=== PATIENT | female | born 1935 | race Caucasian/White ===

== ENCOUNTER → 2017-10-22 | Day surgery (SDC) | payer MEDICARE ==
[2017-10-17 10:47] VITALS: BMI 35.1
[~2017-10-22] MED LIST: LIDOCAINE 1% INJ 10MG/ML (20 ML MDV) ONE; PROPOFOL 10 MG/ML 20 ML VIAL IV ONE
--- NOTE | 2017-10-22 13:44 | PCN ---
PROCEDURE NOTE DATE OF SERVICE: 10/22/2017 REQUESTING PHYSICIANS: Dr. Wil Meyers and Dr. Hillman BRIEF HISTORY: Patient is an 82-year-old pleasant white female, scheduled for an elective upper endoscopy as well as colonoscopy as a part of evaluation of iron deficiency anemia and Hemoccult-positive stool. She also has chronic diarrhea with bowel movements anywhere from 5 to 6 a day, which are loose to watery in consistency, but denies any blood or mucus in the stool. In view of the symptoms, she is scheduled for an upper endoscopy as well as colonoscopy to evaluate further. PROCEDURE PERFORMED: 1. EGD with biopsy. 2. Colonoscopy with biopsy. PREOPERATIVE DIAGNOSIS: Iron deficiency anemia, chronic diarrhea and blood in the stool. IV sedation per anesthesia. PROCEDURE: After informed consent was obtained from the patient, she was brought into the endoscopy unit. IV conscious sedation was administered by Anesthesia under continuous monitoring. Initially, upper endoscopy was done, the Olympus GIF 190 video endoscope was inserted in the mouth. Esophagus intubated without any difficulty and was gradually advanced to the stomach and duodenum and carefully examined. Bulb and the second part of the duodenum appeared normal. The scope was then withdrawn into the stomach, adequately insufflated with air and upon careful examination, the mucosa in the antrum had scattered erosions. Biopsies for H. pylori were done. Body of the stomach appeared normal and on retroflexion cardia and the fundus appeared normal. The scope was then withdrawn in the esophagus. The GE junction was located at 40 cm from the incisors. It appeared regular with no erythema, erosions, or ulcerations. of the esophagus appeared normal. There was a small hiatal hernia noted and the patient tolerated the procedure well. She continued to remain sedated. At this time a colonoscopy was done. Digital examination was normal. The Olympus CF 190 video colonoscopy was then insertion into the rectum gradually advanced into cecum. Careful examination was performed when the scope was gradually being withdrawn. The ileocecal valve and the appendiceal orifice were visualized and appeared normal. The prep was excellent. The mucosa of cecum, ascending colon, transverse colon, descending colon, sigmoid colon and rectum appeared normal. Random biopsies were done from the ascending and descending colon to rule out microscopic/collagenous colitis. In the rectum, retroflexion was performed and mild internal hemorrhoids were seen and the patient tolerated the procedure well. IMPRESSION: 1. Upper endoscopy revealed mild gastritis and small hiatal hernia, but no evidence of esophagitis or peptic ulcer disease. 2. Colonoscopy was essentially within normal limits with no evidence of colitis or colorectal neoplasia. RECOMMENDATION: Findings of this examination were discussed with the patient as well as her family. She was advised to follow up with the biopsy results. In the meantime, she will start on iron supplements and she will be seen in the office in 3 to 4 weeks. MMODL / IJN: [id number] /
[2017-10-23 03:37] LABS: Glucose,Whole Blood 112 mg/dL (75-99)
== END ==
LOC: ORWHC2ENDO 06:45
PROVIDERS: ATTEND Internal Medicine Gastroenterology
DX: K52.832 Lymphocytic colitis (principal); K31.9 Disease of stomach and duodenum, unspecified; K44.9 Diaphragmatic hernia without obstruction or gangrene; I10 Essential (primary) hypertension; N28.9 Disorder of kidney and ureter, unspecified; Z79.899 Other long term (current) drug therapy
CPT/HCPCS: 88305; 45380; 43239; J2001; J2704

== ENCOUNTER → 2019-03-06 | Outpatient (CLI) | payer MEDICARE | END | disposition home or self-care (01) | LOC: RADMRIMAIN 13:25 | PROVIDERS: ATTEND Urology | DX: Z53.9 Procedure and treatment not carried out, unspecified reason (principal) ==

== ENCOUNTER → 2019-04-14 | Outpatient (CLI) | payer MEDICARE ==
--- NOTE | 2019-04-14 15:50 | US ---
EXAMINATION TYPE: US kidneys/renal and bladder DATE OF EXAM: 04/14/2019 COMPARISON: NONE CLINICAL HISTORY: R79.89 ABN FINDINGS OF BLOOD CHEMISTRY. abn labs, no symptoms EXAM MEASUREMENTS: Right Kidney: 8.4 x 2.9 x 5.4cm Left Kidney: 7.7 x 3.2 x 4.0cm Right Kidney: small in size, no hydronephrosis or masses seen Left Kidney: small in size, no hydronephrosis or masses seen Bladder: not distended There is no evidence for hydronephrosis at this point in time. No nephrolithiasis is seen. No maris s are identified. Diminished size and cortical thinning of both kidneys is present. The urinary bladd er is suboptimally distended. Bilateral ureteral jets are not seen. IMPRESSION: Evidence of chronic medical renal disease. No hydronephrosis is seen bilaterally.
--- NOTE | 2019-04-15 12:01 | ECHOF ---
Referral Reason:R01.0 CARDIAC MURMUR MEASUREMENTS -------- HEIGHT: 154.9 cm WEIGHT: 86.2 kg BP: RVIDd: 2.6 cm (< 3.3) IVSd: 1.1 cm (0.6 - 1.1) LVIDd: 4.8 cm (3.9 - 5.3) LVPWd: 1.3 cm (0.6 - 1.1) IVSs: 1.8 cm LVIDs: 3.0 cm LVPWs: 1.9 cm LA Diam: 3.2 cm (2.7 - 3.8) LAESV Index (A-L): 19.70 ml/m Ao Diam: 3.4 cm (2.0 - 3.7) AV Cusp: 1.8 cm (1.5 - 2.6) MV EXCURSION: 22.126 mm (> 18.000) MV EF SLOPE: 197 mm/s (70 - 150) EPSS: 0.1 cm MV E Helio: 0.71 m/s MV DecT: 240 ms MV A Helio: 1.30 m/s MV E/A Ratio: 0.54 AV maxP.93 mmHg AV meanP.47 mmHg AR PHT: 1202 ms RAP: 5.00 mmHg RVSP: 35.26 mmHg FINDINGS -------- Sinus rhythm. This was a technically adequate study. The left ventricular size is normal. There is mild concentric left ventricular hypertrophy. Overa ll left ventricular systolic function is low-normal with, an EF between 50 - 55 %. The right ventricle is normal in size. Normal LA size by volume 22+/-6 ml/m2. The right atrium is normal in size. Aneurysmal Interatrial septum. There is mild aortic valve sclerosis. There is mild aortic regurgitation. There is mild aortic st enosis present. Peak/mean gradient across the Aortic Valve is 17.93mmHg / 9.47mmHg. Mild mitral annular calcification present. Mild tricuspid regurgitation present. There is mild pulmonary hypertension. The right ventricular systolic pressure, as measured by Doppler, is 35.26mmHg. Trace/mild (physiologic) pulmonic regurgitation. The aortic root size is normal. Normal inferior vena cava with normal inspiratory collapse consistent with estimated right atrial pre ssure of 5 mmHg. There is no pericardial effusion. CONCLUSIONS -------- 1. Sinus rhythm. 2. This was a technically adequate study. 3. The left ventricular size is normal. 4. There is mild concentric left ventricular hypertrophy. 5. Overall left ventricular systolic function is low-normal with, an EF between 50 - 55 %. 6. The right ventricle is normal in size. 7. Normal LA size by volume 22+/-6 ml/m2. 8. The right atrium is normal in size. 9. Aneurysmal Interatrial septum. 10. There is mild aortic valve sclerosis. 11. There is mild aortic regurgitation. 12. There is mild aortic stenosis present. 13. Peak/mean gradient across the Aortic Valve is 17.93mmHg / 9.47mmHg. 14. Mild mitral annular calcification present. 15. Mild tricuspid regurgitation present. 16. There is mild pulmonary hypertension. 17. The right ventricular systolic pressure, as measured by Doppler, is 35.26mmHg. 18. Trace/mild (physiologic) pulmonic regurgitation. 19. The aortic root size is normal. 20. Normal inferior vena cava with normal inspiratory collapse consistent with estimated right atrial pressure of 5 mmHg. 21. There is no pericardial effusion. STEP DOWN NURSE: Lauren Garcia RDCS
== END | disposition home or self-care (01) ==
LOC: RADUSWWP 13:54
PROVIDERS: ATTEND Family Medicine
DX: I08.3 Combined rheumatic disorders of mitral, aortic and tricuspid valves (principal); I27.20 Pulmonary hypertension, unspecified; I09.89 Other specified rheumatic heart diseases; N28.9 Disorder of kidney and ureter, unspecified
CPT/HCPCS: 76770; 93306

== ENCOUNTER 2019-05-05 09:28 | Inpatient (IN) | payer MEDICARE ==
[2019-05-05] MEDS ORDERED: IPRATROPIUM-ALBUTEROL 3 ML NEB INHALATION STA (10:00)
[2019-05-05] MEDS ORDERED: methylPREDNISolone SOD SUCCI 125 MG/2 ML VIAL IV STA (10:00)
--- NOTE | 2019-05-05 10:17 | ED ---
General Adult HPI - General Source: patient, RN notes reviewed Mode of arrival: ambulatory Limitations: no limitations <Jann Paul - Last Filed: 05/05/19 11:31> <Sivakumar Fowler - Last Filed: 05/05/19 11:36> - General Chief complaint: Recheck/Abnormal Lab/Rx Stated complaint: Low potassium Time Seen by Provider: 05/05/19 09:46 - History of Present Illness Initial comments: This is a 84-year-old female presents emergency Department with chief complaint of low potassium. Patient states that she's had issues with this in the past she does take Lasix and supplemental potassium. She had labs drawn yesterday and notified come emergency department today. She did admit that she was supposed be taking 40 mEq of potassium at states she's only been taking 28. Patient states that she just feels tired she does complain that she has some shortness of breath with a cough and states that she does have COPD as she was a smoker for 40+ years. Patient denies any palpitations, chest pain, headache or dizziness. She states that she has no significant swelling of her lower extremities. (Jann Paul) - Related Data Home Medications Medication Instructions Recorded Confirmed Enalapril [Vasotec] 20 mg PO DAILY 10/04/13 10/17/17 amLODIPine [Norvasc] 5 mg PO DAILY 10/04/13 10/17/17 Atorvastatin [Lipitor] 20 mg PO DAILY 01/19/16 10/17/17 Furosemide [Lasix] 40 mg PO DAILY 02/13/16 10/17/17 Potassium Chloride [Klor-Con] 20 meq PO DAILY 02/13/16 10/17/17 Allergies Allergy/AdvReac Type Severity Reaction Status Date / Time No Known Allergies Allergy Verified 10/17/17 10:35 Review of Systems ROS Other: All systems not noted in ROS Statement are negative. <Jann Paul - Last Filed: 05/05/19 11:31> ROS Other: All systems not noted in ROS Statement are negative. <Sivakumar Fowler - Last Filed: 05/05/19 11:36> ROS Statement: Those systems with pertinent positive or pertinent negative responses have been documented in the HPI. Past Medical History Past Medical History: Heart Failure, COPD, Deep Vein Thrombosis (DVT), Hyperlipidemia, Hypertension, Osteoarthritis (OA) Additional Past Medical History / Comment(s): hx COLON POLYPS, HEMORRHOIDS, ANEMIA, DVT (NOVEMBER 2015), HOSPITALIZED 01/19/16-01/25/16 AND RECEIVED BLOOD TRANSFUSIONS AND INSERTION OF FILTER FOR BLOOD CLOTS., STATES EDEMA IN MARILYN LEGS AND FEET. hx ulcer,occult blood in stool, was on oral rx for diabetes-none currently, decreased kidney function History of Any Multi-Drug Resistant Organisms: None Reported Past Surgical History: Adenoidectomy, Appendectomy, Cholecystectomy, Heart Catheterization, Hysterectomy, Joint Replacement, Tonsillectomy Additional Past Surgical History / Comment(s): LT KNEE REPLACEMENT, rt shoulder surg , vena cava filter, SALPINGOPLASTY, marilyn CATARACTS,COLONOSCOPY/EGD, marilyn BLEPHEROPLSTY Past Anesthesia/Blood Transfusion Reactions: No Reported Reaction Additional Past Anesthesia/Blood Transfusion Reaction / Comment(s): CLAUSTROPHOBIA Past Psychological History: Anxiety Smoking Status: Former smoker - Past Family History Father Family Medical History: Cancer Additional Family Medical History / Comment(s): . Sister(s) Family Medical History: Cancer <Jann Paul M - Last Filed: 05/05/19 11:31> General Exam Limitations: no limitations General appearance: alert, in no apparent distress Head exam: Present: atraumatic, normocephalic, normal inspection ENT exam: Present: normal exam, mucous membranes moist Neck exam: Present: normal inspection, full ROM. Absent: tenderness, meningismus, lymphadenopathy Respiratory exam: Present: normal lung sounds bilaterally. Absent: respiratory distress, wheezes, rales, rhonchi, stridor Cardiovascular Exam: Present: regular rate, normal rhythm, normal heart sounds. Absent: systolic murmur, diastolic murmur, rubs, gallop, clicks GI/Abdominal exam: Present: soft, normal bowel sounds. Absent: distended, tenderness, guarding, rebound, rigid Extremities exam: Absent: pedal edema Neurological exam: Present: alert, oriented X3, CN II-XII intact Skin exam: Present: warm, dry, intact, normal color. Absent: rash <Jann Paul M - Last Filed: 05/05/19 11:31> Course Vital Signs 05/05/19 05/05/19 05/05/19 09:36 10:22 10:44 Temperature 98.2 F Pulse Rate 85 84 80 Respiratory 20 Rate Blood Pressure 93/57 O2 Sat by Pulse 90 L Oximetry 05/05/19 11:29 Temperature Pulse Rate 84 Respiratory 18 Rate Blood Pressure 130/94 O2 Sat by Pulse 96 Oximetry EKG Findings - EKG Comments: EKG Findings:: EKG shows sinus rhythm with first-degree block, left bundle rate of 74 OH 242 QRS 162 QT/QTC 472/423 <Jann Paul - Last Filed: 05/05/19 11:31> Medical Decision Making - Lab Data Result diagrams: 05/05/19 10:05 05/05/19 10:05 <Jann Paul - Last Filed: 05/05/19 11:31> - Lab Data Result diagrams: 05/05/19 10:05 05/05/19 10:05 <Sivakumar Fowler - Last Filed: 05/05/19 11:36> - Medical Decision Making Patient presented for her hypokalemia. Patient's found to have potassium 2.7with oral and IV. Patient on elevated troponin has been complaining of shortness breath, generalized not feeling well. Patient did complain of some mild chest tightness related to her shortness breath at this time. Patient will be admitted for further evaluation and repeat troponin, potassium replacement. (Jann Paul) Patient presenting with abnormal outpatient lab. Complaining of generalized weakness, and an outpatient lab showing low potassium. Patient has a potassium which is rechecked today which is 2.7, she has chronic kidney disease however her kidney function is slightly worse from baseline with a creatinine 2.1. She had an EKG with left bundle and first-degree AV block which is similar compared to previous EKGs and 2016. No active chest pain. She has a mildly elevated troponin which is suspect is related to decreased clearance from chronic kidney disease. She will be heparinized awaiting serial troponins and cardiac evaluation. Her potassium is replaced both IV and orally. She will be admitted for further evaluation and treatment. Magnesium pending (Sivakumar Fowler) - Lab Data Lab Results 05/05/19 05/05/19 05/05/19 Range/Units 10:05 10:05 10:05 WBC 10.7 H (3.8-10.6) k/uL RBC 4.24 (3.80-5.40) m/uL Hgb 13.2 (11.4-16.0) gm/dL Hct 37.7 (34.0-46.0) % MCV 88.9 (80.0-100.0) fL MCH 31.1 (25.0-35.0) pg MCHC 34.9 (31.0-37.0) g/dL RDW 13.0 (11.5-15.5) % Plt Count 315 (150-450) k/uL Neutrophils % 79 % Lymphocytes % 11 % Monocytes % 6 % Eosinophils % 1 % Basophils % 1 % Neutrophils # 8.5 H (1.3-7.7) k/uL Lymphocytes # 1.2 (1.0-4.8) k/uL Monocytes # 0.7 (0-1.0) k/uL Eosinophils # 0.1 (0-0.7) k/uL Basophils # 0.1 (0-0.2) k/uL Sodium 131 L (137-145) mmol/L Potassium 2.7 L* (3.5-5.1) mmol/L Chloride 84 L (98-107) mmol/L Carbon Dioxide 32 H (22-30) mmol/L Anion Gap 15 mmol/L BUN 51 H (7-17) mg/dL Creatinine 2.14 H (0.52-1.04) mg/dL Est GFR (CKD-EPI)AfAm 24 (>60 ml/min/1.73 sqM) Est GFR (CKD-EPI)NonAf 21 (>60 ml/min/1.73 sqM) Glucose 171 H (74-99) mg/dL Calcium 9.4 (8.4-10.2) mg/dL Total Bilirubin 1.0 (0.2-1.3) mg/dL AST 31 (14-36) U/L ALT 21 (4-34) U/L Alkaline Phosphatase 87 (38-126) U/L Troponin I 0.074 H* (0.000-0.034) ng/mL Total Protein 6.8 (6.3-8.2) g/dL Albumin 4.2 (3.5-5.0) g/dL Disposition <Jann Paul M - Last Filed: 05/05/19 11:31> <Sivakumar Fowler - Last Filed: 05/05/19 11:36> Clinical Impression: Hypokalemia, Elevated troponin, Renal failure, COPD (chronic obstructive p ulmonary disease) Disposition: ADMITTED IP TO THIS HOSP Condition: Fair Referrals: Wil Meyers MD [Primary Care Provider] - 1-2 days
[2019-05-05 10:29] LABS: Basophils # (A) 0.1 k/uL (0-0.2); Basophils % (A) 1 %; Eosinophils # (A) 0.1 k/uL (0-0.7); Eosinophils % (A) 1 %; HCT 37.7 % (34.0-46.0); HGB 13.2 gm/dL (11.4-16.0); Lymphocytes # (A) 1.2 k/uL (1.0-4.8); Lymphocytes % (A) 11 %; MCH 31.1 pg (25.0-35.0); MCHC 34.9 g/dL (31.0-37.0); MCV 88.9 fL (80.0-100.0); Mean Platelet Volume 7.1; Monocytes # (A) 0.7 k/uL (0-1.0); Monocytes % (A) 6 %; Neutrophils # (A) 8.5 k/uL (1.3-7.7); Neutrophils % (A) 79 %; Platelet Count 315 k/uL (150-450); RBC 4.24 m/uL (3.80-5.40); WBC 10.7 k/uL (3.8-10.6)
[2019-05-05 10:33] LABS: Albumin 4.2 g/dL (3.5-5.0); Calcium 9.4 mg/dL (8.4-10.2); Total Protein 6.8 g/dL (6.3-8.2)
[2019-05-05 11:15] LABS: Potassium 2.7 mmol/L (3.5-5.1)
[2019-05-05] MEDS ORDERED: ASPIRIN 81 MG PO STA (11:30)
[2019-05-05] MEDS ORDERED: POTASSIUM CHLORIDE ER 20 MEQ TAB.ER PO STA (11:30)
[2019-05-05] MEDS ORDERED: HEPARIN SODIUM,PORCINE 5,000 UNIT/ML 1 ML VIAL IV PRN (11:33)
[2019-05-05] MEDS ORDERED: HEPARIN SODIUM,PORCINE 5,000 UNIT/ML 1 ML VIAL IV ONE (11:33)
[2019-05-05] MEDS ORDERED: NITROGLYCERIN SL TABS 0.4 MG TAB SUBLINGUAL PRN (11:33)
--- NOTE | 2019-05-05 11:35 | XR ---
EXAMINATION TYPE: XR chest 2V DATE OF EXAM: 05/05/2019 COMPARISON: 01/23/2026 HISTORY: 83 year-old female shortness of breath, dyspnea TECHNIQUE: PA and lateral views FINDINGS: Right total shoulder arthroplasty. Heart normal size. Mild elongation thoracic aorta with atheroscler otic calcifications throughout the aorta. Mild diffuse interstitial prominence. No keith consolidatio n or pleural effusion. IMPRESSION: Diffuse interstitial prominence, possible bronchitis or asthma. Correlate to exclude underlying COPD. No focal infiltrate.
[2019-05-05] MEDS ORDERED: HEPARIN SOD,PORK IN 0.45% NACL 25,000 UNIT in 0.45% NACL 1 250ML.BAG IV SCH (11:45)
[2019-05-05] MEDS: POTASSIUM CHLORIDE 20 MEQ in WATER FOR INJECTION 1 100ML.BAG IVPB SCH ×2 (12:08→14:21)
[2019-05-05] MEDS: SODIUM CHLORIDE 0.9% 1,000 ML IV SCH ×3 (14:21→20:15)
[2019-05-05] MEDS: IPRATROPIUM-ALBUTEROL 3 ML NEB INHALATION SCH ×3 (16:01→20:30)
[2019-05-05 16:55] LABS: Glucose,Whole Blood 270 mg/dL (75-99)
[2019-05-05] MEDS: INSULIN ASPART (NovoLOG) 100 UNIT/ML VIAL SQ SCH ×2 (17:16→20:14)
--- NOTE | 2019-05-05 18:46 | CONS ---
CONSULTATION This is an 83-year-old elderly lady with a diagnosis of hypertension and hyperlipidemia. She sees Dr. Bunch in the outpatient setting. She came into the hospital mainly with what seems to be complaint of feeling weak, exhausted, tired, lack of energy and was found to have a low potassium of 2.7. She takes Lasix and Zaroxolyn. She also complains of having some shortness of breath. No energy, fatigue, but no clear-cut chest discomfort. She does not have any syncope or near syncope. Clinically, she appears to be dehydrated. PAST MEDICAL HISTORY: 1. Hypertension. 2. Hyperlipidemia. 3. History of remote DVT, details unavailable. She is status post cholecystectomy and appendectomy. She has left total knee arthroplasty. MEDICATIONS: At home include: 1. Amlodipine 10 mg daily. 2. Enalapril 20 mg daily. 3. Atorvastatin 20 mg daily. 4. Lasix 40 mg daily. 5. Zaroxolyn 2.5 mg daily. This patient also has type 2 diabetes mellitus, obesity, and is a past smoker who quit smoking about 4-5 years ago. She takes additionally metformin as well. PHYSICAL EXAMINATION: Blood pressure is 130/70, initially when she came in, pressure was low at 93/70, pulse rate is about 85 per minute. EKG revealed a sinus mechanism with left bundle branch block pattern. On examination, there is no JVD. I do not hear a carotid bruit. Heart exam reveals S1, S2 heard normally. Lungs reveal bilateral scattered expiratory rhonchi. Abdomen is soft, nontender. Lower extremities reveal trace edema. Diminished pulses. Central nervous system is grossly within normal limits. IMPRESSION: 1. Exacerbation of chronic obstructive pulmonary disease. 2. Hypokalemia secondary to excessive diuretic usage. 3. Hypertension. 4. Hyperlipidemia. 5. History of type 2 diabetes mellitus. 6. Probably patient is dehydrated. 7. Atypical chest pain with elevated troponin. RECOMMENDATIONS: Patient's initial troponin is 0.074. Potassium is 2.7. I am recommending that we supplement potassium aggressively. She should not use Zaroxolyn. I will hydrate her with 100 mL of normal saline for the next 12 hours or so. We will supplement potassium. Amlodipine will be resumed at 5 mg and I will also start her on metoprolol tartrate 25 mg daily. Check serial troponins. Obtain a CBC and BMP in the morning. Even though patient's troponin is elevated, I do not believe we are dealing with any acute myocardial injury. Clinical presentation does not suggest that. I will obtain an echocardiogram as well. I discussed my thoughts in detail with the patient. Thank you very much for the consult. TOVA / ZION: [id number] /
[2019-05-05 20:08] LABS: Glucose,Whole Blood 315 mg/dL (75-99)
[2019-05-05] MEDS: METOPROLOL TARTRATE 25 MG TAB PO SCH (20:14)
--- NOTE | 2019-05-05 22:40 | P.HPIM ---
History of Present Illness H&P Date: 05/05/19 Chief Complaint: Hypokalemia History of presenting complaint: This is a very pleasant [address] jurado out of [place]. Chronic stable medical conditions include hemorrhoids, COPD, chronic kidney disease, hypertension, hyperlipidemia, Reji arthritis, anxiety,. Patient's had chronic lower extremity swelling for close to a year. She gone on to see Dr. jurado's nurse practitioner. Apparently amlodipine was discontinued and the swelling have gone down felt to be the side effect of the same. For 2 days patient is having increasing short of breath some dry cough. No fever no chills. Family doctor's office called her procedure potassium was low she needs to come to the ER. Potassium was found to be 2.7. Today check a troponin the ER that was 0.074. Patient denies any chest pain no palpitations or chest pressure. Review of systems: GEN.: Tired EYES: None HEENT: None NECK: None RESPIRATORY: Some shortness of breath] CARDIOVASCULAR: Some edema GASTROINTESTINAL: None GENITOURINARY: None MUSCULOSKELETAL: Joint pains LYMPHATICS: None HEMATOLOGICAL: None PSYCHIATRY: None NEUROLOGICAL: None Past medical history to include: Hemorrhoids, COPD, chronic kidney disease, hypertension, hyperlipidemia, Reji arthritis, anxiety, DVT Social history: . Smokes a pack over a week over 60 years. Stopped 2016 Physical examination: VITAL SIGNS: 98.2, 85, 20, 83/57, 90% on room air GENERAL: BMI 35.5, laying in bed, not in distress. EYES: Pupils equal. Conjunctiva normal. HEENT: External appearance of nose and ears normal, oral cavity grossly normal. NECK: JVD not raised; masses not palpable. HEART: First and second heart sounds are normal; no edema. LUNGS: Respiratory rate normal; decreased breath sounds. ABDOMEN: Soft, nontender, liver spleen not palpable, no masses palpable. PSYCH: Alert and oriented x3; mood and affect normal. NEUROLOGICAL: Cranial nerves grossly intact; no facial asymmetry, power and sensation grossly intact. LYMPHATICS: No lymph nodes palpable in the axilla and neck MUSCULOSKELETAL: Evidence of OA INVESTIGATIONS, reviewed in the clinical context: White count 10.7 hemoglobin 13.2 platelets 315 potassium 2.7 bun 51 creatinine 2.14 Troponin I 0.074, 0.069 EKG tracing personally reviewed by me-left bundle-branch block Chest x-ray film-some hyperinflation Assessment: -Severe hypokalemia from diuretics -Acute COPD exacerbation, in an ex-smoker -Obesity BMI 35.5 -Troponin leak in the setting of chronic kidney disease. Patient has no symptoms of acute ischemic syndrome -Lower extremity swelling previously likely a side effect of our department -Chronic kidney disease stage III probably from nephrosclerosis -Essential hypertension -Hyperlipidemia -Primary osteoarthritis Plan: Patient's potassium with Lasix will be replaced. Agree to replaced the fluids overnight. Repeat renal function the morning. Patient did a 2-D echocardiogram. Put the patient on bronchodilators and inhaled steroids. Care was discussed with the patient question were answered. Patient does not need IV heparin that'll be discontinued. Past Medical History Past Medical History: Heart Failure, COPD, Diabetes Mellitus, Deep Vein Thrombosis (DVT), GI Bleed, Hyperlipidemia, Hypertension, Osteoarthritis (OA), Renal Disease Additional Past Medical History / Comment(s): NIDDM type II-diet controlled, past neuropathy bilateral feet, decreased renal function, cardiac murmur, hypokalemia, L leg DVT, hemorrhoids, benign colon polyps, hemorrhoids, anemia, lower GI bleed, gastric ulcer. History of Any Multi-Drug Resistant Organisms: None Reported Past Surgical History: Adenoidectomy, Appendectomy, Cholecystectomy, Heart Catheterization, Hysterectomy, Joint Replacement, Tonsillectomy Additional Past Surgical History / Comment(s): IVC filter, L leg skin tear with surgical repair, total hysterectomy, L knee arthroscopy, total L knee arthroplasty, R shoulder rotator cuff repair with pin, bilateral cataract removals/lens implants, bilateral blepharoplasties, EGD, colonoscopies/benign polypectomy. Past Anesthesia/Blood Transfusion Reactions: No Reported Reaction Additional Past Anesthesia/Blood Transfusion Reaction / Comment(s): CLAUSTROPHOBIA Smoking Status: Former smoker - Past Family History Father Family Medical History: Cancer Additional Family Medical History / Comment(s): Father had prostate cancer with mets. He at the age of 74 yrs. Sister(s) Family Medical History: Cancer Mother Family Medical History: COPD Additional Family Medical History / Comment(s): Mother at the age of 86yrs. Brother(s) Family Medical History: Musculoskeletal Disorder, Neurologic Disorder Additional Family Medical History / Comment(s): Brother of parkinson's disease. Medications and Allergies Home Medications Medication Instructions Recorded Confirmed Type Atorvastatin [Lipitor] 20 mg PO DAILY 01/19/16 05/05/19 History Furosemide [Lasix] 40 mg PO DAILY 02/13/16 05/05/19 History Potassium Chloride [Klor-Con] 40 meq PO DAILY 02/13/16 05/05/19 History Aclidinium [place] [Tudorza 1 puff INHALATION RT-BID 05/05/19 05/05/19 History Pressair] Metolazone [Zaroxolyn] 2.5 mg PO DAILY 05/05/19 05/05/19 History amLODIPine [Norvasc] 10 mg PO DAILY 05/05/19 05/05/19 History Allergies Allergy/AdvReac Type Severity Reaction Status Date / Time No Known Allergies Allergy Verified 05/05/19 11:52 Physical Exam Vitals: Vital Signs Temp Pulse Pulse Resp BP BP Pulse Ox 05/05/19 20:40 76 05/05/19 20:30 71 92 L 05/05/19 20:00 98 F 76 18 105/53 93 L 05/05/19 16:09 82 05/05/19 16:01 85 05/05/19 16:00 98.2 F 84 20 133/95 96 05/05/19 14:22 99.0 F 89 18 146/72 96 05/05/19 12:20 85 21 135/93 96 05/05/19 11:29 84 18 130/94 96 05/05/19 10:44 80 05/05/19 10:22 84 05/05/19 09:36 98.2 F 85 20 93/57 90 L Intake and Output 05/05/19 05/05/19 05/05/19 06:59 14:59 22:59 Intake Total 356 Balance 356 Intake: Oral 356 Other: # Voids 1 # Bowel Movements 1 Weight 85.275 kg Results CBC & Chem 7: 05/05/19 10:05 05/05/19 10:05 Labs: Abnormal Lab Results - Last 24 Hours (Table) 05/05/19 05/05/19 05/05/19 Range/Units 10:05 10:05 10:05 WBC 10.7 H (3.8-10.6) k/uL Neutrophils # 8.5 H (1.3-7.7) k/uL APTT (22.0-30.0) sec Sodium 131 L (137-145) mmol/L Potassium 2.7 L* (3.5-5.1) mmol/L Chloride 84 L (98-107) mmol/L Carbon Dioxide 32 H (22-30) mmol/L BUN 51 H (7-17) mg/dL Creatinine 2.14 H (0.52-1.04) mg/dL Glucose 171 H (74-99) mg/dL POC Glucose (mg/dL) (75-99) mg/dL Troponin I 0.074 H* (0.000-0.034) ng/mL 05/05/19 05/05/19 05/05/19 Range/Units 15:15 15:15 16:54 WBC (3.8-10.6) k/uL Neutrophils # (1.3-7.7) k/uL APTT 50.1 H (22.0-30.0) sec Sodium (137-145) mmol/L Potassium (3.5-5.1) mmol/L Chloride (98-107) mmol/L Carbon Dioxide (22-30) mmol/L BUN (7-17) mg/dL Creatinine (0.52-1.04) mg/dL Glucose (74-99) mg/dL POC Glucose (mg/dL) 270 H (75-99) mg/dL Troponin I 0.069 H* (0.000-0.034) ng/mL 05/05/19 Range/Units 20:07 WBC (3.8-10.6) k/uL Neutrophils # (1.3-7.7) k/uL APTT (22.0-30.0) sec Sodium (137-145) mmol/L Potassium (3.5-5.1) mmol/L Chloride (98-107) mmol/L Carbon Dioxide (22-30) mmol/L BUN (7-17) mg/dL Creatinine (0.52-1.04) mg/dL Glucose (74-99) mg/dL POC Glucose (mg/dL) 315 H (75-99) mg/dL Troponin I (0.000-0.034) ng/mL Thrombosis Risk Factor Assmnt - Choose All That Apply Any of the Below Risk Factors Present?: Yes Each Factor Represents 1 point: Abnormal pulmonary function (COPD), Obesity (BMI >25) Each Risk Factor Represents 3 Points: Age 75 years or older, History of DVT/PE Other congenital or acquired thrombophilia - If yes, enter type in comment: No Thrombosis Risk Factor Assessment Total Risk Factor Score: 8 Thrombosis Risk Factor Assessment Level: High Risk
[2019-05-06] MEDS: IPRATROPIUM-ALBUTEROL 3 ML NEB INHALATION SCH ×7 (00:15→23:56)
[2019-05-06] MEDS: BUDESONIDE 1 MG/2 ML NEBU INHALATION SCH ×3 (00:16→20:12)
[2019-05-06] MEDS: FORMOTEROL FUMARATE 20 MCG/2 ML NEBU INHALATION SCH ×3 (00:16→20:12)
[2019-05-06 06:16] LABS: Glucose,Whole Blood 229 mg/dL (75-99)
[2019-05-06] MEDS: INSULIN ASPART (NovoLOG) 100 UNIT/ML VIAL SQ SCH ×4 (06:31→20:47)
[2019-05-06 06:57] LABS: Basophils % (A) 0 %; Eosinophils % (A) 0 %; HCT 31.2 % (34.0-46.0); HGB 10.8 gm/dL (11.4-16.0); Lymphocytes # (A) 0.8 k/uL (1.0-4.8); Lymphocytes % (A) 8 %; MCH 31.6 pg (25.0-35.0); MCHC 34.5 g/dL (31.0-37.0); MCV 91.5 fL (80.0-100.0); Mean Platelet Volume 7.3; Monocytes # (A) 0.4 k/uL (0-1.0); Monocytes % (A) 4 %; Neutrophils # (A) 9.1 k/uL (1.3-7.7); Neutrophils % (A) 88 %; Platelet Count 326 k/uL (150-450); RBC 3.41 m/uL (3.80-5.40); RDW 13.1 % (11.5-15.5); WBC 10.4 k/uL (3.8-10.6)
[2019-05-06 07:20] LABS: Albumin 3.6 g/dL (3.5-5.0); Calcium 8.8 mg/dL (8.4-10.2); Total Bilirubin 0.5 mg/dL (0.2-1.3)
[2019-05-06] MEDS ORDERED: IPRATROPIUM 0.5 MG/2.5 ML NEBU INHALATION SCH (08:00)
[2019-05-06] MEDS ORDERED: ASPIRIN 325 MG TAB PO SCH (09:00)
[2019-05-06] MEDS ORDERED: amLODIPine 5 MG TAB PO SCH (09:00)
[2019-05-06] MEDS: POTASSIUM CHLORIDE ER 20 MEQ TAB.ER PO SCH ×6 (10:43→22:58)
[2019-05-06] MEDS: ASPIRIN 81 MG PO SCH (10:43)
[2019-05-06] MEDS: METOPROLOL TARTRATE 25 MG TAB PO SCH ×2 (10:43→20:15)
[2019-05-06] MEDS: ATORVASTATIN 20 MG TAB PO SCH (10:43)
[2019-05-06] MEDS ORDERED: FUROSEMIDE 10 MG/ML 4 ML VIAL IV STA (11:39)
--- NOTE | 2019-05-06 11:42 | ECHOF ---
Referral Reason:Assess LV function MEASUREMENTS -------- HEIGHT: 154.9 cm WEIGHT: 83.9 kg BP: IVSd: 1.1 cm (0.6 - 1.1) LVIDd: 3.8 cm (3.9 - 5.3) LVPWd: 1.0 cm (0.6 - 1.1) IVSs: 1.2 cm LVIDs: 1.9 cm LVPWs: 1.3 cm LAESV Index (A-L): 25.07 ml/m Ao Diam: 3.1 cm (2.0 - 3.7) AV Cusp: 1.2 cm (1.5 - 2.6) LA Diam: 3.3 cm (2.7 - 3.8) MV E Helio: 1.54 m/s MV DecT: 135 ms MV A Helio: 0.66 m/s MV E/A Ratio: 2.34 AV maxP.60 mmHg AV meanP.48 mmHg AR PHT: 437 ms RAP: 5.00 mmHg RVSP: 44.75 mmHg TAPSE: 25.68 mm FINDINGS -------- BBB This was a technically adequate study. The left ventricular size is normal. Left ventricular wall thickness is normal. Overall left vent ricular systolic function is normal with, an EF between 55 - 60 %. The right ventricle is normal in size. The left atrial size is normal. Normal LA size by volume 22+/-6 ml/m2. The right atrial size is normal. Aortic valve is trileaflet and is mildly thickened. There is mild aortic regurgitation. There is mild aortic stenosis present. Peak/mean gradient across the Aortic Valve is 22.60mmHg / 14.48mmHg. The mitral valve is normal. The mitral valve leaflets are mildly thickened. Mild mitral regurgita tion is present. The tricuspid valve appears structurally normal. Mild tricuspid regurgitation present. There is m ild pulmonary hypertension. The right ventricular systolic pressure, as measured by Doppler, is 44. 75mmHg. There is no pulmonic regurgitation present. The aortic root size is normal. Normal inferior vena cava with normal inspiratory collapse consistent with estimated right atrial pre ssure of 5 mmHg. There is no pericardial effusion. CONCLUSIONS -------- 1. BBB 2. This was a technically adequate study. 3. The left ventricular size is normal. 4. Left ventricular wall thickness is normal. 5. Overall left ventricular systolic function is normal with, an EF between 55 - 60 %. 6. The right ventricle is normal in size. 7. The left atrial size is normal. 8. Normal LA size by volume 22+/-6 ml/m2. 9. The right atrial size is normal. 10. Aortic valve is trileaflet and is mildly thickened. 11. There is mild aortic regurgitation. 12. There is mild aortic stenosis present. 13. Peak/mean gradient across the Aortic Valve is 22.60mmHg / 14.48mmHg. 14. The mitral valve is normal. 15. The mitral valve leaflets are mildly thickened. 16. Mild mitral regurgitation is present. 17. The tricuspid valve appears structurally normal. 18. Mild tricuspid regurgitation present. 19. There is mild pulmonary hypertension. 20. The right ventricular systolic pressure, as measured by Doppler, is 44.75mmHg. 21. There is no pulmonic regurgitation present. 22. The aortic root size is normal. 23. Normal inferior vena cava with normal inspiratory collapse consistent with estimated right atrial pressure of 5 mmHg. 24. There is no pericardial effusion. [place] [employer]: Gena Monsalve RDCS
[2019-05-06 11:52] LABS: Glucose,Whole Blood 211 mg/dL (75-99)
--- NOTE | 2019-05-06 12:23 | PN ---
PROGRESS NOTE Mrs Green came into the hospital, would seem clinical presentation of dehydration with Lasix and Zaroxolyn and hypokalemia. This morning, potassium level is only 3.0. Blood pressure control is better. Creatinine has improved to 1.83 from 2.15. Her breathing is still not so good. About a year ago she quit smoking. She used to smoke a pack a day. Vitals are stable. JVD is 1 cm, no carotid bruit. S1-S2 heard normally, short systolic murmur noted. Rhythm is regular. Lungs reveal diminished air entry. Scattered rhonchi. Abdomen is distended. Lower extremity exam reveal trace edema. Diminished pulses. I am recommending a small dose of losartan, discontinue amlodipine. Continue metoprolol. Check a room air oxygen saturation and echocardiogram and she can be discharged after she improves clinically, but for now, we will still optimize her clinical status. Same medical regimen as indicated above. MMODL / IJN: [id number] /
[2019-05-06 13:39] VITALS: BMI 35.1
--- NOTE | 2019-05-06 14:13 | P.PN ---
Progress Note - Text Progress Note Date: 05/06/19 Chief Complaint: Hypokalemia History of presenting complaint: This is a very pleasant [address] jurado out of [place]. Chronic stable medical conditions include hemorrhoids, COPD, chronic kidney disease, hypertension, hyperlipidemia, Reji arthritis, anxiety,. Patient's had chronic lower extremity swelling for close to a year. She gone on to see Dr. jurado's nurse practitioner. Apparently amlodipine was discontinued and the swelling have gone down felt to be the side effect of the same. For 2 days patient is having increasing short of breath some dry cough. No fever no chills. Family doctor's office called her procedure potassium was low she needs to come to the ER. Potassium was found to be 2.7. Today check a troponin the ER that was 0.074. Patient denies any chest pain no palpitations or chest pressure. Admitted with severe hypokalemia and COPD exacerbation. Today-still some shortness of breath and chest congestion. Potassium is being replaced. Did tolerate some diet. Review of systems: Was done for constitutional, cardiovascular, GI, pulmonary. relevant finding as above Active Medications Albuterol/Ipratropium (Duoneb 0.5 Mg-3 Mg/3 Ml Soln) 3 ml INHALATION RT-Q4H [facility] Last Admin: 05/06/19 11:29 Dose: 3 ml Documented by: Aspirin (Aspirin) 81 mg PO DAILY [facility] Last Admin: 05/06/19 10:43 Dose: 81 mg Documented by: Atorvastatin Calcium (Lipitor) 20 mg PO DAILY [facility] Last Admin: 05/06/19 10:43 Dose: 20 mg Documented by: Budesonide (Pulmicort) 1 mg INHALATION RT-BID [facility] Last Admin: 05/06/19 08:13 Dose: 1 mg Documented by: Formoterol Fumarate (Perforomist) 20 mcg INHALATION RT-BID [facility] Last Admin: 05/06/19 08:13 Dose: 20 mcg Documented by: Heparin Sodium (Porcine) (Heparin) 5,000 unit SQ Q12HR [facility] Sodium Chloride (Saline 0.9%) 1,000 mls @ 20 mls/hr IV .Q24H [facility] Last Admin: 05/05/19 20:15 Dose: 75 mls/hr Documented by: Insulin Aspart (Novolog) 0 unit SQ ACHS [facility]; Protocol Last Admin: 05/06/19 12:11 Dose: 3 unit Documented by: Losartan Potassium (Cozaar) 50 mg PO HS [facility] Metoprolol Tartrate (Lopressor) 25 mg PO BID [facility] Last Admin: 05/06/19 10:43 Dose: 25 mg Documented by: Nitroglycerin (Nitrostat) 0.4 mg SUBLINGUAL Q5M PRN PRN Reason: Chest Pain Physical examination: VITAL SIGNS: 97.8, 75, 127/57, 94% on 2 L GENERAL: Propped up in bed, slightly tired. EYES: Pupils equal. Conjunctiva normal. HEENT: External appearance of nose and ears normal, oral cavity grossly normal. NECK: JVD not raised; masses not palpable. HEART: First and second heart sounds are normal; no edema. LUNGS: Respiratory rate increased decreased breath sounds. ABDOMEN: Soft, nontender, liver spleen not palpable, no masses palpable. PSYCH: Alert and oriented x3; mood and affect normal. MUSCULOSKELETAL: Evidence of OA INVESTIGATIONS, reviewed in the clinical context: White count 10.4 hemoglobin 10.8 potassium 3 bun 52 creatinine 1.83 Previous testing White count 10.7 hemoglobin 13.2 platelets 315 potassium 2.7 bun 51 creatinine 2.14 Troponin I 0.074, 0.069 EKG tracing personally reviewed by me-left bundle-branch block Chest x-ray film-some hyperinflation Assessment: -Severe hypokalemia from diuretics, improving -Acute COPD exacerbation, in an ex-smoker, slow to respond -Obesity BMI 35.5 -Troponin leak in the setting of chronic kidney disease. Patient has no symptoms of acute ischemic syndrome -Lower extremity swelling previously likely a side effect of our department -Chronic kidney disease stage III probably from nephrosclerosis -Essential hypertension -Hyperlipidemia -Primary osteoarthritis Plan: . Percussion to be replaced. Add Solu-Medrol. Per cardiology and amlodipine discontinued. Losartan added. Care was discussed with the patient.
[2019-05-06] MEDS: SODIUM CHLORIDE 0.9% 1,000 ML IV SCH (15:19)
--- NOTE | 2019-05-06 15:24 | CDI ---
Documentation Clarification Form Date: 05/06/2019 03:13:46 PM From: Allison Wilcox RN, CCDS Admit Date: 05/06/2019 01:06:00 PM Patient Name: Troy Green Visit Number: [id number] ATTENTION: The Clinical Documentation Specialists (CDI) and [facility] Coding Staff appreciate your assistance in clarifying documentation. Please respond to the clarification below the line at the bottom and electronically sign. The CDI & [facility] Coding staff will review the response and follow-up if needed. Please note: Queries are made part of the Legal Health Record. If you have any questions, please contact the author of this message via ITS. Dr. Nadine Springer CHF is documented in the PMH and the patient presents with hypokalemia from Lasix and Zaroxolyn. History/Risk Factors: Copd, ckd, HTN, anxiety Clinical Indicators: 05/06/19 Cardiology Progress Note: "Mrs. Green came into the hospital, would seem clinical presentation of dehydration with Lasix and Zaroxolyn and hypokalemia. VS/Pulse OX: Temp 98.2, hr 85, RR 20, B/P 93/57, spo2 90% ra Echocardiogram Results: EF 55-60% 05/05 Chest X Ray: "Diffuse interstitial prominence, possible bronchitis or asthma. Correlate to exclude underlying COPD. No focal infiltrate." Treatment: Previously on Lasix and Zaroxolyn at home Lopressor 25 mg PO BID In your professional opinion, can you please clarify the acuity and type of CHF if known? Chronic Diastolic Heart Failure Chronic Combined heart failure Unable to Determine Other, please specify (Last Revision: July 2017) Chronic Diastolic Heart Failure MTDD
--- NOTE | 2019-05-06 15:29 | CDI ---
Documentation Clarification Form Date: 05/06/2019 03:25:46 PM From: Allison Wilcox RN, CCDS Admit Date: 05/06/2019 01:06:00 PM Patient Name: Troy Green Visit Number: [id number] ATTENTION: The Clinical Documentation Specialists (CDI) and [facility] Coding Staff appreciate your assistance in clarifying documentation. Please respond to the clarification below the line at the bottom and electronically sign. The CDI & [facility] Coding staff will review the response and follow-up if needed. Please note: Queries are made part of the Legal Health Record. If you have any questions, please contact the author of this message via ITS. Dr. Jaiden Mercado A diagnosis of anemia lacks specificity to accurately reflect your patients severity of condition and clarification is needed. History/Risk Factors: Anemia, DM2, chronic renal failure, lower GIB, gastric ulcer Clinical indicators: H&P: PMH "Anemia" Hemoglobin: 13.2/10.8 Hematocrit: 37.7/31.2 Treatment: monitoring labs In order to capture the severity of condition, please clarify the type of anemia and etiology if known: Acute blood loss anemia Acute on chronic blood loss anemia Chronic blood loss anemia Iron deficiency anemia Anemia due to chronic disease Nutritional anemia Anemia of chronic kidney disease Unable to determine Other, please specify (Last Revision: January 2017) Anemia of chronic kidney disease MTDD
--- NOTE | 2019-05-06 16:19 | P.PN ---
Subjective Progress Note Date: 05/06/19 This is an 83-year-old female with history of hypertension and hyperlipidemia who presented to the hospital with symptoms of weakness and exhaustion, she was found to have a low potassium of 2.7. She takes Lasix and Zaroxolyn which were placed on hold. Patient was seen in consultation yesterday by Dr. EULOGIO Springer, consult was requested because of abnormalities in troponin. Oxygen saturation today was 90, potassium today is 3.0, BUN 52 and creatinine 1.8. We will give her 3 more doses of potassium 20 mEq to total a total of 120, we will add losartan 50 mg at at bedtime to her medication regime, discontinue her Norvasc, add some subcu heparin and discontinue the IV Lasix. Objective - Vital Signs Vital signs: Vital Signs Temp 97.8 F 05/06/19 08:00 Pulse 77 05/06/19 12:00 Resp 16 05/06/19 11:40 BP 132/58 05/06/19 12:00 Pulse Ox 91 L 05/06/19 12:00 Intake & Output 05/05/19 05/06/19 05/06/19 18:59 06:59 18:59 Intake Total 236 120 826 Balance 236 120 826 Weight 85.275 kg 84.3 kg 84.3 kg Intake: Intake, IV Titration 350 Amount Sodium Chloride 0.9% 1, 350 000 ml @ 100 mls/hr IV . Q10H [facility] Rx#:[id number] Oral 236 120 476 Other: # Voids 1 2 # Bowel Movements 1 - Exam PHYSICAL EXAMINATION: GENERAL: 55-year-old female in no acute distress at the time of my examination HEENT: Head is atraumatic, normocephalic. Pupils equal, round. Sclera anicteric. Conjunctiva are clear. Mucous membranes of the mouth are moist. Neck is supple. There is no elevated jugular venous pressure.] bruit is heard. HEART EXAMINATION: [Heart S1, S2 normal. No murmur or gallop heard.] CHEST EXAMINATION:[ Lungs are clear to auscultation and precussion. No chest wall tenderness is noted on palpation or with deep breathing.] ABDOMEN: [ Soft, nontender. Bowel sounds are heard. No organomegaly noted]. EXTREMITIES:[ 2+ peripheral pulses with no evidence of peripheral edema and no calf tenderness noted]. NEUROLOGIC [patient is awake, alert and oriented ?-3.] . - Labs CBC & Chem 7: 05/06/19 06:30 05/06/19 06:29 Labs: Abnormal Lab Results - Last 24 Hours (Table) 05/05/19 05/05/19 05/05/19 Range/Units 15:15 15:15 16:54 RBC (3.80-5.40) m/uL Hgb (11.4-16.0) gm/dL Hct (34.0-46.0) % Neutrophils # (1.3-7.7) k/uL Lymphocytes # (1.0-4.8) k/uL APTT 50.1 H (22.0-30.0) sec Sodium (137-145) mmol/L Potassium (3.5-5.1) mmol/L Chloride (98-107) mmol/L BUN (7-17) mg/dL Creatinine (0.52-1.04) mg/dL Glucose (74-99) mg/dL POC Glucose (mg/dL) 270 H (75-99) mg/dL Troponin I 0.069 H* (0.000-0.034) ng/mL Total Protein (6.3-8.2) g/dL HDL Cholesterol (40-60) mg/dL 05/05/19 05/05/19 05/06/19 Range/Units 20:07 22:05 06:14 RBC (3.80-5.40) m/uL Hgb (11.4-16.0) gm/dL Hct (34.0-46.0) % Neutrophils # (1.3-7.7) k/uL Lymphocytes # (1.0-4.8) k/uL APTT (22.0-30.0) sec Sodium (137-145) mmol/L Potassium (3.5-5.1) mmol/L Chloride (98-107) mmol/L BUN (7-17) mg/dL Creatinine (0.52-1.04) mg/dL Glucose (74-99) mg/dL POC Glucose (mg/dL) 315 H 229 H (75-99) mg/dL Troponin I 0.070 H* (0.000-0.034) ng/mL Total Protein (6.3-8.2) g/dL HDL Cholesterol (40-60) mg/dL 05/06/19 05/06/19 05/06/19 Range/Units 06:29 06:30 06:30 RBC 3.41 L (3.80-5.40) m/uL Hgb 10.8 L (11.4-16.0) gm/dL Hct 31.2 L (34.0-46.0) % Neutrophils # 9.1 H (1.3-7.7) k/uL Lymphocytes # 0.8 L (1.0-4.8) k/uL APTT 37.1 H (22.0-30.0) sec Sodium 132 L (137-145) mmol/L Potassium 3.0 L (3.5-5.1) mmol/L Chloride 94 L (98-107) mmol/L BUN 52 H (7-17) mg/dL Creatinine 1.83 H (0.52-1.04) mg/dL Glucose 207 H (74-99) mg/dL POC Glucose (mg/dL) (75-99) mg/dL Troponin I (0.000-0.034) ng/mL Total Protein 6.0 L (6.3-8.2) g/dL HDL Cholesterol 71 H (40-60) mg/dL 05/06/19 Range/Units 11:51 RBC (3.80-5.40) m/uL Hgb (11.4-16.0) gm/dL Hct (34.0-46.0) % Neutrophils # (1.3-7.7) k/uL Lymphocytes # (1.0-4.8) k/uL APTT (22.0-30.0) sec Sodium (137-145) mmol/L Potassium (3.5-5.1) mmol/L Chloride (98-107) mmol/L BUN (7-17) mg/dL Creatinine (0.52-1.04) mg/dL Glucose (74-99) mg/dL POC Glucose (mg/dL) 211 H (75-99) mg/dL Troponin I (0.000-0.034) ng/mL Total Protein (6.3-8.2) g/dL HDL Cholesterol (40-60) mg/dL Assessment and Plan Plan: Assessment and plan #1 COPD exacerbation #2 hypokalemia #3 hypertension #4 hyperlipidemia #5 diabetes #6 troponin, not suggestive of acute coronary syndrome, likely secondary to COPD exacerbation and hypoxia. PLan We'll replace the potassium, add losartan to the medication regime, discontinue Norvasc, add subcu heparin and discontinue the IV Lasix. DNP note has been reviewed, I agree with a documented findings and plan of care. Patient was seen and examined.
[2019-05-06 16:27] LABS: Glucose,Whole Blood 177 mg/dL (75-99)
[2019-05-06] MEDS: methylPREDNISolone SOD SUCCI 40 MG/ML 1 ML VIAL IV SCH (19:16)
[2019-05-06] MEDS: LOSARTAN 50 MG TAB PO SCH (20:15)
[2019-05-06] MEDS: HEPARIN SODIUM,PORCINE 5,000 UNIT/ML 1 ML VIAL SQ SCH (20:15)
[2019-05-06 20:36] LABS: Glucose,Whole Blood 247 mg/dL (75-99)
[2019-05-06] MEDS ORDERED: POTASSIUM CHLORIDE ER 20 MEQ TAB.ER PO SCH (22:31)
[2019-05-07] MEDS: methylPREDNISolone SOD SUCCI 40 MG/ML 1 ML VIAL IV SCH ×3 (00:40→17:36)
[2019-05-07] MEDS: IPRATROPIUM-ALBUTEROL 3 ML NEB INHALATION SCH ×5 (04:16→19:17)
[2019-05-07 06:00] LABS: Glucose,Whole Blood 225 mg/dL (75-99)
[2019-05-07] MEDS: INSULIN ASPART (NovoLOG) 100 UNIT/ML VIAL SQ SCH ×4 (06:19→20:46)
[2019-05-07] MEDS: BUDESONIDE 1 MG/2 ML NEBU INHALATION SCH ×2 (07:39→19:16)
[2019-05-07] MEDS: FORMOTEROL FUMARATE 20 MCG/2 ML NEBU INHALATION SCH ×2 (07:39→19:17)
[2019-05-07 08:12] LABS: Calcium 8.9 mg/dL (8.4-10.2); Potassium 4.3 mmol/L (3.5-5.1)
[2019-05-07] MEDS: ATORVASTATIN 20 MG TAB PO SCH (09:14)
[2019-05-07] MEDS: HEPARIN SODIUM,PORCINE 5,000 UNIT/ML 1 ML VIAL SQ SCH ×2 (09:14→20:46)
[2019-05-07] MEDS: ASPIRIN 81 MG PO SCH (09:15)
[2019-05-07] MEDS: METOPROLOL TARTRATE 25 MG TAB PO SCH ×2 (09:15→20:46)
--- NOTE | 2019-05-07 11:48 | PN ---
PROGRESS NOTE Mrs. Green is breathing easier today. She came in with exacerbation of COPD. Also had some edema of lower extremities. She also has underlying hypertension. Her breathing is easier, somewhat improved. Remains in sinus rhythm. Her blood pressure control on the current regimen is optimal. Vitals are stable. There is JVD of 1 cm. S1-S2 heard normally, short systolic murmur noted. Lungs reveal improved air entry. Abdomen is soft. Lower extremities reveal diminished pulses. Central nervous system is normal. MMODL / IJN: [id number] /
[2019-05-07 12:05] LABS: Glucose,Whole Blood 236 mg/dL (75-99)
[2019-05-07] MEDS: SODIUM CHLORIDE 0.9% 1,000 ML IV SCH (12:26)
--- NOTE | 2019-05-07 14:52 | P.CNPUL ---
History of Present Illness Consult date: 05/07/19 Reason for consult: dyspnea, COPD History of present illness: 83-year-old female patient who was admitted to the hospital with symptoms of generalized weakness and exhaustion and the patient was found to have potassium level of 2.7 as the patient was taken diuretics in a combination of Lasix and Zaroxolyn was placed on hold. The patient reported that she was feeling tired and she also did complain of some shortness of breath and cough and apparently she reported history of COPD with [id number] smoking history. Pulmonary consultation was requested accordingly. Chest x-ray is free of any acute pulmonary infiltrates. On admission, the patient had an acute on top of chronic kidney injury. Creatinine was up to 2.1 and the patient was given hydration and the creatinine is down to 1.6. She did have also troponin leak and his the EKG showed sinus rhythm with a first-degree AV block and the left bundle branch block pattern. The echo showed an EF around 55-60%. There was mild aortic stenosis. Mild pulmonary hypertension with a PA pressure of 44 mmHg. She is currently utilizing DuoNeb nebulized treatments around the clock and she is also on IV Solu-Medrol. Diuretics are on hold for now. She has been maintained on Tudorza one puff twice a day on outpatient basis. However, the cost of the medication was high and the patient was unable to obtain the medication. The patient is not utilizing any formal maintenance inhalers or oxygen at home. Current pulse ox on room air is around 91-92%. Review of Systems Constitutional: Denies chills, Denies fever Eyes: denies as per HPI, denies blurred vision, denies bulging eye, denies decreased vision, denies diplopia, denies discharge, denies dry eye, denies irritation, denies itching, denies pain, denies photophobia, denies loss of peripheral vision, denies loss of vision, denies tunnel vision/blind spots Ears: deny: decreased hearing, ear discharge, earache, tinnitus Ears, nose, mouth and throat: Reports as per HPI Breasts: absent: as per HPI, change in shape, gynecomastia, masses, nipple discharge, pain, skin changes, swelling Cardiovascular: Reports decreased exercise tolerance, Reports dyspnea on e xertion Respiratory: Reports dyspnea Genitourinary: Reports as per HPI Menstruation: Reports as per HPI Musculoskeletal: Reports as per HPI Musculoskeletal: absent: ankle pain, ankle stiffness, ankle swelling, as per HPI, elbow pain, elbow stiffness, elbow swelling, foot pain, foot stiffness, foot swelling, hand pain, hand stiffness, hand swelling, hip pain, hip stiffness, hip swelling, knee pain, knee stiffness, knee swelling, shoulder pain, shoulder stiffness, shoulder swelling, wrist pain, wrist stiffness, wrist swelling Neurological: Reports as per HPI Psychiatric: Reports as per HPI Endocrine: Reports as per HPI Hematologic/Lymphatic: Reports as per HPI Allergic/Immunologic: Reports as per HPI Past Medical History Past Medical History: Heart Failure, COPD, Diabetes Mellitus, Deep Vein Thrombosis (DVT), GI Bleed, Hyperlipidemia, Hypertension, Osteoarthritis (OA), Renal Disease Additional Past Medical History / Comment(s): NIDDM type II-diet controlled, past neuropathy bilateral feet, decreased renal function, cardiac murmur, hypokalemia, L leg DVT, hemorrhoids, benign colon polyps, hemorrhoids, anemia, lower GI bleed, gastric ulcer. History of Any Multi-Drug Resistant Organisms: None Reported Past Surgical History: Adenoidectomy, Appendectomy, Cholecystectomy, Heart Catheterization, Hysterectomy, Joint Replacement, Tonsillectomy Additional Past Surgical History / Comment(s): IVC filter, L leg skin tear with surgical repair, total hysterectomy, L knee arthroscopy, total L knee arthr oplasty, R shoulder rotator cuff repair with pin, bilateral cataract removals/lens implants, bilateral blepharoplasties, EGD, colonoscopies/benign polypectomy. Past Anesthesia/Blood Transfusion Reactions: No Reported Reaction Additional Past Anesthesia/Blood Transfusion Reaction / Comment(s): CLAUSTROPHOBIA Smoking Status: Former smoker - Past Family History Father Family Medical History: Cancer Additional Family Medical History / Comment(s): Father had prostate cancer with mets. He at the age of 74 yrs. Sister(s) Family Medical History: Cancer Mother Family Medical History: COPD Additional Family Medical History / Comment(s): Mother at the age of 86yrs. Brother(s) Family Medical History: Musculoskeletal Disorder, Neurologic Disorder Additional Family Medical History / Comment(s): Brother of parkinson's disease. Medications and Allergies Home Medications Medication Instructions Recorded Confirmed Type Atorvastatin [Lipitor] 20 mg PO DAILY 01/19/16 05/05/19 History Furosemide [Lasix] 40 mg PO DAILY 02/13/16 05/05/19 History Potassium Chloride [Klor-Con] 40 meq PO DAILY 02/13/16 05/05/19 History Aclidinium [place] [Tudorza 1 puff INHALATION RT-BID 05/05/19 05/05/19 History Pressair] Metolazone [Zaroxolyn] 2.5 mg PO DAILY 05/05/19 05/05/19 History amLODIPine [Norvasc] 10 mg PO DAILY 05/05/19 05/05/19 History Allergies Allergy/AdvReac Type Severity Reaction Status Date / Time No Known Allergies Allergy Verified 05/05/19 11:52 Physical Exam Vitals: Vital Signs Temp Pulse Pulse Pulse Pulse Pulse Resp 05/07/19 12:40 71 88 87 05/07/19 12:00 71 05/07/19 11:44 76 05/07/19 11:35 78 05/07/19 08:06 80 05/07/19 08:00 88 05/07/19 07:56 74 05/07/19 07:55 74 05/07/19 07:42 78 05/07/19 04:28 71 05/07/19 04:16 71 05/07/19 04:00 97.8 F 82 18 05/07/19 03:29 81 18 05/07/19 00:08 68 05/06/19 23:56 67 05/06/19 23:10 79 18 05/06/19 20:33 68 05/06/19 20:24 68 05/06/19 20:13 68 05/06/19 20:00 97.7 F 81 18 05/06/19 16:29 66 05/06/19 16:14 66 05/06/19 16:00 78 BP Pulse Ox Pulse Ox Pulse Ox Pulse Ox 05/07/19 12:40 92 L 92 L 86 L 05/07/19 12:00 118/56 92 L 05/07/19 11:44 05/07/19 11:35 05/07/19 08:06 05/07/19 08:00 127/60 92 L 05/07/19 07:56 05/07/19 07:55 05/07/19 07:42 89 L 05/07/19 04:28 05/07/19 04:16 05/07/19 04:00 132/68 92 L 05/07/19 03:29 05/07/19 00:08 05/06/19 23:56 05/06/19 23:10 137/67 92 L 05/06/19 20:33 05/06/19 20:24 05/06/19 20:13 05/06/19 20:00 141/65 92 L 05/06/19 16:29 05/06/19 16:14 05/06/19 16:00 161/65 91 L Intake and Output 05/06/19 05/07/19 05/07/19 22:59 06:59 14:59 Intake Total 240 720 Balance 240 720 Intake: Oral 240 720 Other: # Voids 1 1 Weight 85.5 kg Gen. appearance, comfortable likely distress currently on room air oxygen. Head exam was generally normal. There was no scleral icterus or corneal arcus. Mucous membranes were moist. Neck was supple and without jugular venous distension, thyromegaly, or carotid bruits. Carotids were easily palpable bilaterally. There was no adenopathy. Lungs sounds are diminished bilaterally especially lung bases otherwise clear. No significant bronchospasm or wheezing Cardiac exam revealed the PMI to be normally situated and sized. The rhythm was regular and no extrasystoles were noted during several minutes of auscultation. The first and second heart sounds were normal and physiologic splitting of the second heart sound was noted. There were no murmurs, rubs, clicks, or gallops. Abdominal exam revealed normal bowel sounds. The abdomen was soft, non-tender, and without masses, organomegaly, or appreciable enlargement of the abdominal aorta. Examination of the extremities revealed easily palpable radial, femoral and pedal pulses. There was no cyanosis, clubbing or edema. Examination of the skin revealed no evidence of significant rashes, suspicious appearing nevi or other concerning lesions. neurologically the patient is awake and alert and there is no focal neurological deficits. Results - Laboratory Findings CBC and BMP: 05/06/19 06:30 05/07/19 06:21 Abnormal lab findings: Abnormal Labs 05/05/19 05/05/19 05/05/19 10:05 10:05 10:05 WBC 10.7 H RBC Hgb Hct Neutrophils # 8.5 H Lymphocytes # APTT Sodium 131 L Potassium 2.7 L* Chloride 84 L Carbon Dioxide 32 H BUN 51 H Creatinine 2.14 H Glucose 171 H POC Glucose (mg/dL) Troponin I 0.074 H* Total Protein HDL Cholesterol 05/05/19 05/05/19 05/05/19 15:15 15:15 16:54 WBC RBC Hgb Hct Neutrophils # Lymphocytes # APTT 50.1 H Sodium Potassium Chloride Carbon Dioxide BUN Creatinine Glucose POC Glucose (mg/dL) 270 H Troponin I 0.069 H* Total Protein HDL Cholesterol 05/05/19 05/05/19 05/06/19 20:07 22:05 06:14 WBC RBC Hgb Hct Neutrophils # Lymphocytes # APTT Sodium Potassium Chloride Carbon Dioxide BUN Creatinine Glucose POC Glucose (mg/dL) 315 H 229 H Troponin I 0.070 H* Total Protein HDL Cholesterol 05/06/19 05/06/19 05/06/19 06:29 06:30 06:30 WBC RBC 3.41 L Hgb 10.8 L Hct 31.2 L Neutrophils # 9.1 H Lymphocytes # 0.8 L APTT 37.1 H Sodium 132 L Potassium 3.0 L Chloride 94 L Carbon Dioxide BUN 52 H Creatinine 1.83 H Glucose 207 H POC Glucose (mg/dL) Troponin I Total Protein 6.0 L HDL Cholesterol 71 H 05/06/19 05/06/19 05/06/19 11:51 16:25 20:35 WBC RBC Hgb Hct Neutrophils # Lymphocytes # APTT Sodium Potassium Chloride Carbon Dioxide BUN Creatinine Glucose POC Glucose (mg/dL) 211 H 177 H 247 H Troponin I Total Protein HDL Cholesterol 05/07/19 05/07/19 05/07/19 05:59 06:21 12:03 WBC RBC Hgb Hct Neutrophils # Lymphocytes # APTT Sodium 132 L Potassium Chloride 97 L Carbon Dioxide BUN 53 H Creatinine 1.65 H Glucose 204 H POC Glucose (mg/dL) 225 H 236 H Troponin I Total Protein HDL Cholesterol - Diagnostic Findings Chest x-ray: image reviewed Assessment and Plan Plan: 1 COPD with secondary shortness of breath. The patient has some exertional dyspnea and hypoxemia. No evidence of any pneumonia. Exertional oxygen saturation will be evaluated at time of discharge and it was decided that the patient will be a candidate for oxygen therapy. Currently the patient is subjected to a combination of bronchodilators and steroids. Outpatient PFT will be needed to assess the severity of the patient's obstructive lung disease. No evidence of pneumonia. 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
[2019-05-07 17:00] LABS: Glucose,Whole Blood 208 mg/dL (75-99)
[2019-05-07 20:34] LABS: Glucose,Whole Blood 279 mg/dL (75-99)
[2019-05-07] MEDS: LOSARTAN 50 MG TAB PO SCH (20:46)
--- NOTE | 2019-05-07 21:15 | P.PN ---
Progress Note - Text Progress Note Date: 05/07/19 Chief Complaint: Hypokalemia Interval history: This is a very pleasant [address] jurado out of [place]. Chronic stable medical conditions include hemorrhoids, COPD, chronic kidney disease, hypertension, hyperlipidemia, Reji arthritis, anxiety,. Patient's had chronic lower extremity swelling for close to a year. She gone on to see Dr. jurado's nurse practitioner. Apparently amlodipine was discontinued and the swelling have gone down felt to be the side effect of the same. For 2 days patient is having increasing short of breath some dry cough. No fever no chills. Family doctor's office called her procedure potassium was low she needs to come to the ER. Potassium was found to be 2.7. Today check a troponin the ER that was 0.074. Patient denies any chest pain no palpitations or chest pressure. Admitted with severe hypokalemia and COPD exacerbation. Today-breathing is better. Follows congested. Eating better. Did walk to the bathroom.. Review of systems: Was done for constitutional, cardiovascular, GI, pulmonary. relevant finding as above Active Medications Albuterol/Ipratropium (Duoneb 0.5 Mg-3 Mg/3 Ml Soln) 3 ml INHALATION RT-Q4H [facility] Last Admin: 05/07/19 19:17 Dose: 3 ml Documented by: Aspirin (Aspirin) 81 mg PO DAILY [facility] Last Admin: 05/07/19 09:15 Dose: 81 mg Documented by: Atorvastatin Calcium (Lipitor) 20 mg PO DAILY [facility] Last Admin: 05/07/19 09:14 Dose: 20 mg Documented by: Budesonide (Pulmicort) 1 mg INHALATION RT-BID [facility] Last Admin: 05/07/19 19:16 Dose: 1 mg Documented by: Formoterol Fumarate (Perforomist) 20 mcg INHALATION RT-BID [facility] Last Admin: 05/07/19 19:17 Dose: 20 mcg Documented by: Heparin Sodium (Porcine) (Heparin) 5,000 unit SQ Q12HR [facility] Last Admin: 05/07/19 20:46 Dose: 5,000 unit Documented by: Sodium Chloride (Saline 0.9%) 1,000 mls @ 50 mls/hr IV .Q20H [facility] Last Admin: 05/07/19 12:26 Dose: 50 mls/hr Documented by: Insulin Aspart (Novolog) 0 unit SQ ACHS [facility]; Protocol Last Admin: 05/07/19 20:46 Dose: 4 unit Documented by: Losartan Potassium (Cozaar) 50 mg PO HS [facility] Last Admin: 05/07/19 20:46 Dose: 50 mg Documented by: Methylprednisolone Sodium Succinate (Solu-Medrol) 40 mg IV Q8HR [facility] Last Admin: 05/07/19 17:36 Dose: 40 mg Documented by: Metoprolol Tartrate (Lopressor) 25 mg PO BID [facility] Last Admin: 05/07/19 20:46 Dose: 25 mg Documented by: Nitroglycerin (Nitrostat) 0.4 mg SUBLINGUAL Q5M PRN PRN Reason: Chest Pain Physical examination: VITAL SIGNS: 97.8, 82, 18, 132/68, 92% on 1 L GENERAL: Sitting at the age of the bed, looking much better EYES: Pupils equal. Conjunctiva normal. HEENT: External appearance of nose and ears normal, oral cavity grossly normal. NECK: JVD not raised; masses not palpable. HEART: First and second heart sounds are normal; no edema. LUNGS: Respiratory rate increased and improved air entry. ABDOMEN: Soft, nontender, liver spleen not palpable, no masses palpable. PSYCH: Alert and oriented x3; mood and affect normal. MUSCULOSKELETAL: Evidence of OA INVESTIGATIONS, reviewed in the clinical context: Potassium 4.3 bun 53 creatinine 1.65 Previous testing White count 10.7 hemoglobin 13.2 platelets 315 potassium 2.7 bun 51 creatinine 2.14 Troponin I 0.074, 0.069 EKG tracing personally reviewed by me-left bundle-branch block Chest x-ray film-some hyperinflation Assessment: -Severe hypokalemia from diuretics, corrected, POA -Acute COPD exacerbation, in an ex-smoker, improved, POA -Obesity BMI 35.5 -Troponin leak in the setting of chronic kidney disease. Patient has no symptoms of acute ischemic syndrome -Lower extremity swelling previously likely a side effect of our department -Chronic kidney disease stage III probably from nephrosclerosis -Essential hypertension -Hyperlipidemia -Primary osteoarthritis Plan: Doing much better. Blood pressure control. Potassium corrected. Patient is due to be discharged tomorrow. Discussed with the patient.
[2019-05-08] MEDS: IPRATROPIUM-ALBUTEROL 3 ML NEB INHALATION SCH ×4 (00:11→11:15)
[2019-05-08 05:16] VITALS: RESP 20
[2019-05-08 06:02] LABS: Glucose,Whole Blood 218 mg/dL (75-99)
[2019-05-08] MEDS: INSULIN ASPART (NovoLOG) 100 UNIT/ML VIAL SQ SCH ×2 (06:26→13:18)
[2019-05-08 06:45] LABS: Calcium 8.7 mg/dL (8.4-10.2); Potassium 4.1 mmol/L (3.5-5.1)
[2019-05-08] MEDS: FORMOTEROL FUMARATE 20 MCG/2 ML NEBU INHALATION SCH (08:02)
[2019-05-08] MEDS: BUDESONIDE 1 MG/2 ML NEBU INHALATION SCH (08:03)
[2019-05-08] MEDS ORDERED: predniSONE 20 MG TAB PO SCH (09:00)
[2019-05-08] MEDS: HEPARIN SODIUM,PORCINE 5,000 UNIT/ML 1 ML VIAL SQ SCH (09:58)
[2019-05-08] MEDS: METOPROLOL TARTRATE 25 MG TAB PO SCH (09:59)
[2019-05-08] MEDS: ATORVASTATIN 20 MG TAB PO SCH (10:00)
[2019-05-08] MEDS: ASPIRIN 81 MG PO SCH (10:00)
[2019-05-08] MEDS ORDERED: FUROSEMIDE 10 MG/ML 4 ML VIAL IV STA (10:20)
[2019-05-08] MEDS: SODIUM CHLORIDE 0.9% 1,000 ML IV SCH (11:10)
--- NOTE | 2019-05-08 11:12 | P.PN ---
Subjective Progress Note Date: 05/08/19 Principal diagnosis: Elevated troponin. PROGRESS NOTE 05/08/2018 83-year-old elderly lady with diagnosis of smoking 40 years, COPD, DVT hx, hypertension and hyperlipidemia. Patient presented to ER with low potassium, weakness and not taking full dose of K+ at home. Patient continue sinus rhythm first degree block heart rate 69. Patient is currently sitting at the edge of the bed in no acute distress, well groomed. Patient has no current complaints of chest pain, chest pressure or palpitations. Pt does have exertional shortness of breath which she states is her normal. Most recent echo on 05/06/2019 shows preserved EF at 55-60%, mild pulmonary hypertension. Patient able to ambulate around the room without shortness of breath or difficulty. Vital signs stable. Afebrile. 93% on room air. Pt has not historically followed with cardiology. PHYSICAL EXAMINATION: HEENT: Head is atraumatic, normocephalic. Pupils are equal, round. Sclerae anicteric. Conjunctivae are clear. Mucous membranes of the mouth are moist. Neck is supple. There is no jugular venous distention. No carotid bruit is heard. No thyromegaly. LUNGS: Clear to auscultation no wheezes, rales or rhonchi. SCANT fine crackles to RIGHT lung base. No chest wall tenderness is noted on palpation or with deep breathing. HEART: Regular rate and rhythm without murmurs, rubs or gallops. S1 and S2 heard. ABDOMEN: Abdominal exam revealed normal bowel sounds. The abdomen was soft, non- tender, and without masses, organomegaly, or appreciable enlargement of the abdominal aorta. EXTREMITIES: Examination of the extremities revealed easily palpable radial, femoral and pedal pulses. There was no cyanosis, clubbing or edema. No calf tenderness noted. VASCULAR: Radial and dorsalis pedis pulses palpated, no evidence of clubbing. NEUROLOGIC: Patient is awake, alert and oriented x3. There were no obvious focal neurologic abnormalities. LAB DATA: BUN 59, CR 1.59 (improved) K 4.1. NA 130, CL 98. FINAL IMPRESSION: 1. COPD exacerbation - much improved with IV steroids and breathing treatments 2. hypokalemia - stable at 4.1 3. hypertension 4. hyperlipidemia 5. elevated troponin - no acute cardiology process, secondary to oxygen demand mismatch. PLAN: START IV Lasix 40 mg once. Cautious diuresis advised. Okay from a cardiology standpoint for discharge. Advised to continue with oral prednisone and breathing treatments for COPD. Continue same all other medical/medication regime. Follow-up visit with cardiology/Dr. EULOGIO Springer in 2 weeks. Repeat BMP if patient states overnight. Objective - Vital Signs Vital signs: Vital Signs Temp 98 F 05/08/19 08:00 Pulse 72 05/08/19 08:26 Resp 20 05/08/19 08:00 BP 122/98 05/08/19 08:00 Pulse Ox 93 L 05/08/19 08:05 Intake & Output 05/07/19 05/08/19 05/08/19 18:59 06:59 18:59 Intake Total 1318 720 Balance 1318 720 Weight 84.7 kg Intake: Intake, IV Titration 300 Amount Sodium Chloride 0.9% 1, 300 000 ml @ 50 mls/hr IV . Q20H [facility] Rx#:[id number] Oral 1018 720 Other: # Voids 3 1 - Labs CBC & Chem 7: 05/06/19 06:30 05/08/19 05:29 Labs: Abnormal Lab Results - Last 24 Hours (Table) 05/07/19 05/07/19 05/07/19 Range/Units 12:03 16:59 20:33 Sodium (137-145) mmol/L Carbon Dioxide (22-30) mmol/L BUN (7-17) mg/dL Creatinine (0.52-1.04) mg/dL Glucose (74-99) mg/dL POC Glucose (mg/dL) 236 H 208 H 279 H (75-99) mg/dL 05/08/19 05/08/19 Range/Units 05:29 06:01 Sodium 130 L (137-145) mmol/L Carbon Dioxide 21 L (22-30) mmol/L BUN 59 H (7-17) mg/dL Creatinine 1.69 H (0.52-1.04) mg/dL Glucose 203 H (74-99) mg/dL POC Glucose (mg/dL) 218 H (75-99) mg/dL
[2019-05-08 11:38] VITALS: BP 133/65; PULSE 69; TEMP 97.3
[2019-05-08 12:16] LABS: Glucose,Whole Blood 176 mg/dL (75-99)
--- NOTE | 2019-05-08 23:58 | P.DS ---
Providers Date of admission: 05/06/19 13:06 Expected date of discharge: 05/08/19 Attending physician: Jaiden Mercado Consults: 05/05/19 11:33 Consult Physician Urgent Consulting Provider: Nadine Springer Consult Reason/Comments: elevated trop Do you want consulting provider notified?: Yes 05/07/19 09:33 Consult Physician Urgent Consulting Provider: Melva French Consult Reason/Comments: copd Do you want consulting provider notified?: Yes Primary care physician: Wil Meyers [facility] Course: Chief Complaint: Hypokalemia Interval history: This is a very pleasant [address] meyers out of [place]. Chronic stable medical conditions include hemorrhoids, COPD, chronic kidney disease, hypertension, hyperlipidemia, Reji arthritis, anxiety,. Patient's had chronic lower extremity swelling for close to a year. She gone on to see Dr. meyers's nurse practitioner. Apparently amlodipine was discontinued and the swelling hav e gone down felt to be the side effect of the same. For 2 days patient is having increasing short of breath some dry cough. No fever no chills. Family doctor's office called her procedure potassium was low she needs to come to the ER. Potassium was found to be 2.7. Today check a troponin the ER that was 0.074. Patient denies any chest pain no palpitations or chest pressure. Admitted with severe hypokalemia and COPD exacerbation.treated with bronchodilators, inhaled and IV steroids. Today-doing much better. Breathing much improved. Consultation: Dr. French from pulmonary Physical examination: VITAL SIGNS: 97.3, 69, 16, 133/65, 96% room air GENERAL: sitting up, looking better EYES: Pupils equal. Conjunctiva normal. HEENT: External appearance of nose and ears normal, oral cavity grossly normal. NECK: JVD not raised; masses not palpable. HEART: First and second heart sounds are normal; no edema. LUNGS: Respiratory rate increased and improved air entry. ABDOMEN: Soft, nontender, liver spleen not palpable, no masses palpable. PSYCH: Alert and oriented x3; mood and affect normal. MUSCULOSKELETAL: Evidence of OA INVESTIGATIONS, reviewed in the clinical context: potassium 4.1 bun 59 crit 1.6 Previous testing White count 10.7 hemoglobin 13.2 platelets 315 potassium 2.7 bun 51 creatinine 2.14 Troponin I 0.074, 0.069 EKG tracing personally reviewed by me-left bundle-branch block Chest x-ray film-some hyperinflation Assessment: -Severe hypokalemia from diuretics, corrected, POA -Acute COPD exacerbation, in an ex-smoker, improved, POA -Obesity BMI 35.5 -Troponin leak in the setting of chronic kidney disease. Patient has no symptoms of acute ischemic syndrome -Lower extremity swelling previously likely a side effect of our department -Chronic kidney disease stage III probably from nephrosclerosis -Essential hypertension -Hyperlipidemia -Primary osteoarthritis disposition: Home Patient Condition at Discharge: Fair Plan - Discharge Summary Discharge Rx Participant: No New Discharge Prescriptions: New Aspirin 81 mg PO DAILY chew Losartan [Cozaar] 50 mg PO HS #30 tab Potassium Chloride ER [K-Dur 10] 10 meq PO DAILY #30 tab Metoprolol Tartrate [Lopressor] 25 mg PO BID #60 tab predniSONE 10 mg PO DAILY #30 tab Continue Atorvastatin [Lipitor] 20 mg PO DAILY Furosemide [Lasix] 40 mg PO DAILY Aclidinium [place] [Tudorza Pressair] 1 puff INHALATION RT-BID Discontinued Potassium Chloride [Klor-Con] 40 meq PO DAILY amLODIPine [Norvasc] 10 mg PO DAILY Metolazone [Zaroxolyn] 2.5 mg PO DAILY Discharge Medication List Atorvastatin [Lipitor] 20 mg PO DAILY 01/19/16 [History] Furosemide [Lasix] 40 mg PO DAILY 02/13/16 [History] Aclidinium [place] [Tudorza Pressair] 1 puff INHALATION RT-BID 05/05/19 [History] Aspirin 81 mg PO DAILY chew 05/08/19 [Rx] Losartan [Cozaar] 50 mg PO HS #30 tab 05/08/19 [Rx] Metoprolol Tartrate [Lopressor] 25 mg PO BID #60 tab 05/08/19 [Rx] Potassium Chloride ER [K-Dur 10] 10 meq PO DAILY #30 tab 05/08/19 [Rx] predniSONE 10 mg PO DAILY #30 tab 05/08/19 [Rx] Follow up Appointment(s)/Referral(s): Nadine Springer MD [STAFF PHYSICIAN] - 05/26/19 1:30 pm Wil Meyers MD [Primary Care Provider] - 1-2 days (Offices are closed. Please call Friday to make a follow up appointment.) Melva French MD [STAFF PHYSICIAN] - 2 Weeks (Offices are closed. Please call Friday to make a follow up appointment.) Patient Instructions/Handouts: Heart Failure (DC), Hypokalemia (DC) Discharge Disposition: HOME SELF-CARE
[2019-05-09] MEDS ORDERED: FUROSEMIDE 40 MG TAB PO SCH (09:00)
== END 2019-05-08 14:14 | disposition home or self-care (01) | DRG 191 ==
LOC: EC 09:28 → 3SCARD 11:42 → OBSVTOIN 05-06 13:06
PROVIDERS: ADMIT Hospitalist; ATTEND Hospitalist
DX: J44.1 Chronic obstructive pulmonary disease with (acute) exacerbation (principal); I13.0 Hypertensive heart and chronic kidney disease with heart failure and stage 1 through stage 4 chronic kidney disease, or unspecified chronic kidney disease; M19.91 Primary osteoarthritis, unspecified site; N18.3 Chronic kidney disease, stage 3 (moderate); I50.9 Heart failure, unspecified; I44.0 Atrioventricular block, first degree; I44.7 Left bundle-branch block, unspecified; T50.2X5A Adverse effect of carbonic-anhydrase inhibitors, benzothiadiazides and other diuretics, initial encounter; E87.6 Hypokalemia; E86.0 Dehydration; E78.5 Hyperlipidemia, unspecified; F40.240 Claustrophobia; I27.20 Pulmonary hypertension, unspecified; E11.22 Type 2 diabetes mellitus with diabetic chronic kidney disease; E66.9 Obesity, unspecified; Z68.35 Body mass index [BMI] 35.0-35.9, adult; Z79.899 Other long term (current) drug therapy; Z80.42 Family history of malignant neoplasm of prostate; Z82.0 Family history of epilepsy and other diseases of the nervous system; Z82.5 Family history of asthma and other chronic lower respiratory diseases; Z80.9 Family history of malignant neoplasm, unspecified; Z86.718 Personal history of other venous thrombosis and embolism; Z87.11 Personal history of peptic ulcer disease; Z86.010 Personal history of colon polyps; Z87.891 Personal history of nicotine dependence; Z90.49 Acquired absence of other specified parts of digestive tract; Z90.710 Acquired absence of both cervix and uterus; Z98.42 Cataract extraction status, left eye; Z98.41 Cataract extraction status, right eye; Z96.1 Presence of intraocular lens; Z96.652 Presence of left artificial knee joint; Z79.82 Long term (current) use of aspirin
CPT/HCPCS: 36415; 71046; 80048; 80053; 80061; 83735; 84484; 85025; 85730; 93306; 94640; 94760; 96365; 96366; 96375; 96376; 99285

== ENCOUNTER → 2019-05-26 | Outpatient (CLI) | payer MEDICARE ==
[2019-05-26 08:37] LABS: HCT 36.2 % (34.0-46.0); HGB 11.8 gm/dL (11.4-16.0); MCH 31.1 pg (25.0-35.0); MCHC 32.6 g/dL (31.0-37.0); MCV 95.3 fL (80.0-100.0); Mean Platelet Volume 7.5; Platelet Count 177 k/uL (150-450); RDW 13.7 % (11.5-15.5); WBC 7.2 k/uL (3.8-10.6)
[2019-05-26 18:31] LABS: African American GFR (CKD) 29.9 (60.0-200.0); Anion Gap 11.3 mmol/L (4.00-12.00); BUN/Creat Ratio 23.33 Ratio (12.00-20.00); Calcium 8.8 mg/dL (8.7-10.3); Carbon Dioxide 26.7 mmol/L (21.6-31.8); Non-African American GFR(CKD) 25.8 (60.0-200.0); Potassium 3.6 mmol/L (3.5-5.5)
[2019-05-26 21:05] LABS: Hemoglobin A1C 6.4 % (4.0-6.0)
== END | disposition home or self-care (01) ==
LOC: LABWHC1 07:40
PROVIDERS: ATTEND Internal Medicine Interventional Cardiology
DX: I12.9 Hypertensive chronic kidney disease with stage 1 through stage 4 chronic kidney disease, or unspecified chronic kidney disease (principal); N18.2 Chronic kidney disease, stage 2 (mild); R73.09 Other abnormal glucose
CPT/HCPCS: 36415; 80048; 83036; 85027

== ENCOUNTER 2020-09-24 13:51 | Inpatient (IN) | payer MEDICARE ==
[2020-09-24] MEDS ORDERED: PANTOPRAZOLE 40 MG/10 ML VIAL IVP STA (14:29)
--- NOTE | 2020-09-24 14:31 | ED ---
General Adult HPI <Shane Baig - Last Filed: 09/24/20 15:58> - General Source: patient, RN notes reviewed Mode of arrival: wheelchair Limitations: no limitations <Manny Turk - Last Filed: 09/24/20 16:02> - General Chief complaint: GI Bleed Stated complaint: Diff Breathing Time Seen by Provider: 09/24/20 14:06 - History of Present Illness Initial comments: 85-year-old female with a past medical history of heart failure, COPD, NIDDM, GERD, hyperlipidemia, hypertension, lower GI bleed, gastric ulcer presents to the emergency room for a chief complaint of GI bleed. Patient reports that over the past 2 weeks she has had bright red bleeding. She reports that it is streaking her stool and she sees it in her underwear. She reports that this is similar to the last time she had GI bleeding a few years ago. Patient was on blood thinners at that time, is currently not on blood thinners. Patient's son came to visit for the holiday and noticed she seemed a little more short of breath and was complaining of dizziness. With the bleeding and they thought it would be best to be seen to the ER. Patient also states that her blood pressure has been high. She reports she was told by one doctor to discontinue her blood pressure medication and by the other doctor to resume these. Her son does not think she has been taking her blood pressure medication consistently.Patient has no other complaints at this time including shortness of breath, chest pain, abdominal pain, nausea or vomiting, headache, or visual changes. (Manny Turk) - Related Data Home Medications Medication Instructions Recorded Confirmed Atorvastatin [Lipitor] 20 mg PO DAILY 01/19/16 09/24/20 Sodium Bicarbonate Tab 650 mg PO DAILY 09/24/20 09/24/20 methocarbamoL [Robaxin] 500 mg PO TID PRN 09/24/20 09/24/20 Previous Rx's Medication Instructions Recorded Aspirin 81 mg PO DAILY chew 05/08/19 Losartan [Cozaar] 50 mg PO HS #30 tab 05/08/19 Metoprolol Tartrate [Lopressor] 25 mg PO BID #60 tab 05/08/19 Allergies Allergy/AdvReac Type Severity Reaction Status Date / Time No Known Allergies Allergy Verified 09/24/20 15:00 Review of Systems ROS Other: All systems not noted in ROS Statement are negative. <Shane Baig - Last Filed: 09/24/20 15:58> ROS Other: All systems not noted in ROS Statement are negative. <Manny Turk - Last Filed: 09/24/20 16:02> ROS Statement: Those systems with pertinent positive or pertinent negative responses have been documented in the HPI. Past Medical History Past Medical History: Heart Failure, COPD, Diabetes Mellitus, Deep Vein Thrombosis (DVT), GI Bleed, Hyperlipidemia, Hypertension, Osteoarthritis (OA), Renal Disease Additional Past Medical History / Comment(s): NIDDM type II-diet controlled, past neuropathy bilateral feet, decreased renal function, cardiac murmur, hypokalemia, L leg DVT, hemorrhoids, benign colon polyps, hemorrhoids, anemia, lower GI bleed, gastric ulcer. History of Any Multi-Drug Resistant Organisms: None Reported Past Surgical History: Adenoidectomy, Appendectomy, Cholecystectomy, Heart Catheterization, Hysterectomy, Joint Replacement, Tonsillectomy Additional Past Surgical History / Comment(s): IVC filter, L leg skin tear with surgical repair, total hysterectomy, L knee arthroscopy, total L knee arthroplasty, R shoulder rotator cuff repair with pin, bilateral cataract removals/lens implants, bilateral blepharoplasties, EGD, colonoscopies/benign polypectomy. Past Anesthesia/Blood Transfusion Reactions: No Reported Reaction Additional Past Anesthesia/Blood Transfusion Reaction / Comment(s): CLAUSTROPHOBIA Past Psychological History: Anxiety Smoking Status: Never smoker Past Alcohol Use History: None Reported Past Drug Use History: None Reported - Past Family History Father Family Medical History: Cancer Additional Family Medical History / Comment(s): Father had prostate cancer with mets. He at the age of 74 yrs. Sister(s) Family Medical History: Cancer Mother Family Medical History: COPD Additional Family Medical History / Comment(s): Mother at the age of 86yrs. Brother(s) Family Medical History: Musculoskeletal Disorder, Neurologic Disorder Additional Family Medical History / Comment(s): Brother of parkinson's disease. <Manny Turk P - Last Filed: 09/24/20 16:02> General Exam Limitations: no limitations General appearance: alert, in no apparent distress Head exam: Present: atraumatic, normocephalic, normal inspection Eye exam: Present: normal appearance ENT exam: Present: normal exam, mucous membranes moist Neck exam: Present: normal inspection. Absent: tenderness, meningismus, lymphadenopathy Respiratory exam: Present: normal lung sounds bilaterally. Absent: respiratory distress, wheezes, rales, rhonchi, stridor Cardiovascular Exam: Present: regular rate, normal rhythm, normal heart sounds. Absent: systolic murmur, diastolic murmur, rubs, gallop, clicks GI/Abdominal exam: Present: soft, normal bowel sounds. Absent: distended, tenderness, guarding, rebound, rigid Rectal exam: Present: normal inspection <Manny Turk - Last Filed: 09/24/20 16:02> Course <Shane Baig - Last Filed: 09/24/20 15:58> Vital Signs 09/24/20 09/24/20 09/24/20 13:52 14:59 15:00 Temperature 97.9 F Pulse Rate 50 L 35 L 42 L Respiratory 20 16 16 Rate Blood Pressure 194/57 165/64 151/92 O2 Sat by Pulse 98 97 97 Oximetry 09/24/20 15:48 Temperature Pulse Rate 35 L Respiratory 16 Rate Blood Pressure 132/69 O2 Sat by Pulse 99 Oximetry - Reevaluation(s) Reevaluation #1: 09/24/20 15:50 EKG #2 shows rate of 37, ventricular rhythm. QRS 154. QTC 580. QTC 455. Nor mal axis. Left bundle branch block. Nonspecific ST-T. (Shane Baig) EKG Findings - EKG Comments: EKG Findings:: 1406: Sinus bradycardia, ventricular rate 59, W[place] interval 202, QTc 504. 1507: idioventricular rhythm , LBBB, ventricular rate 37, QTc 455 <Manny Turk - Last Filed: 09/24/20 16:02> Medical Decision Making - Lab Data Result diagrams: 09/24/20 14:31 09/24/20 14:31 <Shane Baig - Last Filed: 09/24/20 15:58> - Lab Data Result diagrams: 09/24/20 14:31 09/24/20 14:31 <Manny Turk - Last Filed: 09/24/20 16:02> - Medical Decision Making Patient reevaluated and reexamined by myself, Dr. Baig. Patient resting comfortably in bed. Heart rate remains in upper 30s. EKGs reviewed concern for complete heart block. Blood pressure is stable. I do agree with PA findings. This includes diagnostic interpretation and treatment plan. Case was discussed with Dr. Springer with cardiology who will evaluate patient and agrees she will likely need pacemaker. He does request thyroid studies and IV fluids at 75 mL per hour as well as LifeVest at the bedside. Also requests holding beta blockers. Case also discussed with Dr. Malcolm, who will admit covering for Dr. Singleton. (Shane Baig) Patient initially presents to the emergency room for GI bleed. Reports she has had bright red blood for the past 2 weeks with bowel movements and in her underwear. Heart rate was initially 50 and 59 on EKG. However patient had a heart rate in the 30s on repeat vitals. Heart rate remained stable and patient was asymptomatic. Laboratory evaluation was initiated. CBC unremarkable. Hemoglobin stable. CMP shows chronic kidney disease for which patient has a hi story. Occult blood was negative. Chest x-ray shows cardiomegaly. Her heart rate remained in the 30s.. Cardiology was consulted. We will admit patient for probable pacemaker. (Manny Turk) - Lab Data Lab Results 09/24/20 09/24/20 09/24/20 Range/Units 14:31 14:31 14:31 WBC 9.0 (3.8-10.6) k/uL RBC 3.92 (3.80-5.40) m/uL Hgb 11.9 (11.4-16.0) gm/dL Hct 35.9 (34.0-46.0) % MCV 91.6 (80.0-100.0) fL MCH 30.4 (25.0-35.0) pg MCHC 33.2 (31.0-37.0) g/dL RDW 14.0 (11.5-15.5) % Plt Count 248 (150-450) k/uL MPV 7.4 Neutrophils % 61 % Lymphocytes % 25 % Monocytes % 8 % Eosinophils % 4 % Basophils % 1 % Neutrophils # 5.5 (1.3-7.7) k/uL Lymphocytes # 2.2 (1.0-4.8) k/uL Monocytes # 0.7 (0-1.0) k/uL Eosinophils # 0.3 (0-0.7) k/uL Basophils # 0.1 (0-0.2) k/uL PT 10.0 (9.0-12.0) sec INR 0.9 (<1.2) APTT 20.9 L (22.0-30.0) sec Sodium (137-145) mmol/L Potassium (3.5-5.1) mmol/L Chloride (98-107) mmol/L Carbon Dioxide (22-30) mmol/L Anion Gap mmol/L BUN (7-17) mg/dL Creatinine (0.52-1.04) mg/dL Est GFR (CKD-EPI)AfAm (>60 ml/min/1.73 sqM) Est GFR (CKD-EPI)NonAf (>60 ml/min/1.73 sqM) Glucose (74-99) mg/dL Calcium (8.4-10.2) mg/dL Magnesium (1.6-2.3) mg/dL Total Bilirubin (0.2-1.3) mg/dL AST (14-36) U/L ALT (4-34) U/L Alkaline Phosphatase (38-126) U/L Total Protein (6.3-8.2) g/dL Albumin (3.5-5.0) g/dL Stool Occult Blood Negative (Negative) Blood Type Blood Type Recheck Bld Type Recheck Status Antibody Screen Spec Expiration Date 09/24/20 09/24/20 Range/Units 14:31 14:31 WBC (3.8-10.6) k/uL RBC (3.80-5.40) m/uL Hgb (11.4-16.0) gm/dL Hct (34.0-46.0) % MCV (80.0-100.0) fL MCH (25.0-35.0) pg MCHC (31.0-37.0) g/dL RDW (11.5-15.5) % Plt Count (150-450) k/uL MPV Neutrophils % % Lymphocytes % % Monocytes % % Eosinophils % % Basophils % % Neutrophils # (1.3-7.7) k/uL Lymphocytes # (1.0-4.8) k/uL Monocytes # (0-1.0) k/uL Eosinophils # (0-0.7) k/uL Basophils # (0-0.2) k/uL PT (9.0-12.0) sec INR (<1.2) APTT (22.0-30.0) sec Sodium 140 (137-145) mmol/L Potassium 4.9 (3.5-5.1) mmol/L Chloride 110 H (98-107) mmol/L Carbon Dioxide 20 L (22-30) mmol/L Anion Gap 10 mmol/L BUN 35 H (7-17) mg/dL Creatinine 1.30 H (0.52-1.04) mg/dL Est GFR (CKD-EPI)AfAm 44 (>60 ml/min/1.73 sqM) Est GFR (CKD-EPI)NonAf 38 (>60 ml/min/1.73 sqM) Glucose 106 H (74-99) mg/dL Calcium 9.1 (8.4-10.2) mg/dL Magnesium 1.7 (1.6-2.3) mg/dL Total Bilirubin 0.3 (0.2-1.3) mg/dL AST 20 (14-36) U/L ALT 12 (4-34) U/L Alkaline Phosphatase 83 (38-126) U/L Total Protein 6.3 (6.3-8.2) g/dL Albumin 3.9 (3.5-5.0) g/dL Stool Occult Blood (Negative) Blood Type B Positive Blood Type Recheck B Pos Bld Type Recheck Status No Antibody Screen NEGATIVE Spec Expiration Date 09/27/2020 - 2330 Disposition <Shane Baig - Last Filed: 09/24/20 15:58> Time of Disposition: 15:58 <Manny Turk - Last Filed: 09/24/20 16:02> Clinical Impression: Bradycardia, GI bleed Disposition: ADMITTED IP TO THIS HOSP Referrals: Wil Meyers MD [Primary Care Provider] - 1-2 days
[2020-09-24 14:43] LABS: Basophils # (A) 0.1 k/uL (0-0.2); Basophils % (A) 1 %; Eosinophils # (A) 0.3 k/uL (0-0.7); Eosinophils % (A) 4 %; HCT 35.9 % (34.0-46.0); HGB 11.9 gm/dL (11.4-16.0); Lymphocytes # (A) 2.2 k/uL (1.0-4.8); Lymphocytes % (A) 25 %; MCH 30.4 pg (25.0-35.0); MCHC 33.2 g/dL (31.0-37.0); MCV 91.6 fL (80.0-100.0); Mean Platelet Volume 7.4; Monocytes # (A) 0.7 k/uL (0-1.0); Monocytes % (A) 8 %; Neutrophils # (A) 5.5 k/uL (1.3-7.7); Neutrophils % (A) 61 %; Platelet Count 248 k/uL (150-450); RBC 3.92 m/uL (3.80-5.40)
[2020-09-24 14:56] LABS: Albumin 3.9 g/dL (3.5-5.0); Calcium 9.1 mg/dL (8.4-10.2); Magnesium 1.7 mg/dL (1.6-2.3); Potassium 4.9 mmol/L (3.5-5.1); Total Bilirubin 0.3 mg/dL (0.2-1.3); Total Protein 6.3 g/dL (6.3-8.2)
--- NOTE | 2020-09-24 14:58 | XR ---
EXAMINATION TYPE: XR chest 2V DATE OF EXAM: 09/24/2020 COMPARISON: 05/05/2019 HISTORY: Chest pain TECHNIQUE: 2 views FINDINGS: Heart appears enlarged. There is no heart failure. There is right shoulder prosthesis. Ther e is no pleural effusion. Thoracic spine is intact. IMPRESSION: Cardiomegaly. Heart appears increased compared to old exam. No heart failure seen.
[2020-09-24 15:26] LABS: INR 0.9 (<1.2)
[2020-09-24 15:30] LABS: Partial Thromboplastin Time 20.9 sec (22.0-30.0)
[2020-09-24] MEDS ORDERED: SODIUM CHLORIDE 0.9% 1,000 ML IV STA (15:46)
[2020-09-24] MEDS ORDERED: NALOXONE 0.4 MG/ML 1 ML VIAL IV PRN ×2 (15:53→18:01)
[2020-09-24] MEDS ORDERED: SODIUM CHLORIDE 0.9% 1,000 ML IV SCH (16:00)
[2020-09-24 16:33] LABS: T4, Free (Free Thyroxine) 1.04 ng/dL (0.78-2.19)
--- NOTE | 2020-09-24 18:06 | P.HPIM ---
History of Present Illness H&P Date: 09/24/20 Chief Complaint: Malaise, generalized weakness, hypotension 85-year-old woman with a medical history of chronic diastolic heart failure, CAD stage III, COPD, GERD, hyperlipidemia/hypertension, history of GI bleed/gastric ulcer presented with chief complaint of malaise, hypotension, generalized weakness. Patient tells me that for the last several days she's been noticing i ncreased weakness and fatigability. She has been taking her blood pressures and noticed they've been extremely labile. She has had several hypotensive episodes going as low as 90 over 40s. She is also noted some increased redness of her stools and was concerned about a bleed that she has had some GI bleeding in the past. Given the constellation of symptoms, she presented to the emergency room for further evaluation. In the course of her workup, FOBT was negative for blood in the stool. However, she was noted to have complete heart block on telemetry. Cardiology was consulted and recommended admission for consideration of pacemaker placement. Otherwise, patient's blood pressure has been stable in the 172/71 range. She is required 2 L nasal cannula and saturating at 98%. Heart rates on telemetry of oscillated between 30 and 40. Initial EKG demonstrated sinus bradycardia with first-degree AV block, later EKG demonstrated junctional rhythm with left bundle-branch block. Chest x-ray demonstrated cardiomegaly without evidence of heart failure. CBC was unremarkable. Chemistries demonstrated creatinine baseline of 1.3. LFTs were unremarkable. Review of Systems All Systems reviewed and pertinent positives and negatives noted in HPI, all other symptoms are negative Past Medical History Past Medical History: Heart Failure, COPD, Diabetes Mellitus, Deep Vein Thrombosis (DVT), GI Bleed, Hyperlipidemia, Hypertension, Osteoarthritis (OA), Renal Disease Additional Past Medical History / Comment(s): NIDDM type II-diet controlled, past neuropathy bilateral feet, decreased renal function, cardiac murmur, hypokalemia, L leg DVT, hemorrhoids, benign colon polyps, hemorrhoids, anemia, lower GI bleed, gastric ulcer. History of Any Multi-Drug Resistant Organisms: None Reported Past Surgical History: Adenoidectomy, Appendectomy, Cholecystectomy, Heart Catheterization, Hysterectomy, Joint Replacement, Tonsillectomy Additional Past Surgical History / Comment(s): IVC filter, L leg skin tear with surgical repair, total hysterectomy, L knee arthroscopy, total L knee arthroplasty, R shoulder rotator cuff repair with pin, bilateral cataract removals/lens implants, bilateral blepharoplasties, EGD, colonoscopies/benign polypectomy. Past Anesthesia/Blood Transfusion Reactions: No Reported Reaction Additional Past Anesthesia/Blood Transfusion Reaction / Comment(s): CLAUSTROPHOBIA Past Psychological History: Anxiety Smoking Status: Never smoker Past Alcohol Use History: None Reported Past Drug Use History: None Reported - Past Family History Father Family Medical History: Cancer Additional Family Medical History / Comment(s): Father had prostate cancer with mets. He at the age of 74 yrs. Sister(s) Family Medical History: Cancer Mother Family Medical History: COPD Additional Family Medical History / Comment(s): Mother at the age of 86yrs. Brother(s) Family Medical History: Musculoskeletal Disorder, Neurologic Disorder Additional Family Medical History / Comment(s): Brother of parkinson's disease. Medications and Allergies Home Medications Medication Instructions Recorded Confirmed Type Atorvastatin [Lipitor] 20 mg PO DAILY 01/19/16 09/24/20 History Aspirin 81 mg PO DAILY chew 05/08/19 09/24/20 Rx Losartan [Cozaar] 50 mg PO HS #30 tab 05/08/19 09/24/20 Rx Metoprolol Tartrate [Lopressor] 25 mg PO BID #60 tab 05/08/19 09/24/20 Rx Sodium Bicarbonate Tab 650 mg PO DAILY 09/24/20 09/24/20 History methocarbamoL [Robaxin] 500 mg PO TID PRN 09/24/20 09/24/20 History Allergies Allergy/AdvReac Type Severity Reaction Status Date / Time No Known Allergies Allergy Verified 09/24/20 15:00 Physical Exam Osteopathic Statement: *. No significant issues noted on an osteopathic structural exam other than those noted in the History and Physical/Consult. Vitals: Vital Signs Temp Pulse Resp BP Pulse Ox 09/24/20 17:00 30 L 16 172/71 98 09/24/20 16:08 40 L 16 145/71 97 09/24/20 15:48 35 L 16 132/69 99 09/24/20 15:00 42 L 16 151/92 97 09/24/20 14:59 35 L 16 165/64 97 09/24/20 13:52 97.9 F 50 L 20 194/57 98 Intake and Output 09/24/20 09/24/20 09/24/20 06:59 14:59 22:59 Other: Weight 83.461 kg Gen: awake, alert HEENT: normocephalic, atraumatic, good hearing acuity, moist mucous membranes Resp: good air exchange, breathing comfortably with no accessory muscle use CVS: good distal perfusion x 4, bradycardic, no murmurs GI: soft, NTTP, ND : no SPT, no CVAT, [place] catheter not present MSK: no pitting edema, no clubbing Neuro: non-focal, moving all extremities Psych: cooperative, euthymic mood Results CBC & Chem 7: 09/24/20 14:31 09/24/20 14:31 Labs: Abnormal Lab Results - Last 24 Hours (Table) 09/24/20 09/24/20 09/24/20 Range/Units 14:31 14:31 14:31 APTT 20.9 L (22.0-30.0) sec Chloride 110 H (98-107) mmol/L Carbon Dioxide 20 L (22-30) mmol/L BUN 35 H (7-17) mg/dL Creatinine 1.30 H (0.52-1.04) mg/dL Glucose 106 H (74-99) mg/dL TSH 5.520 H (0.465-4.680) mIU/L Assessment and Plan Assessment: Symptomatic bradycardia -Admit to telemetry, and patient -Cardiology consult -Dopamine gtt to keep HR > 50 -Pacers at bedside -Consideration of glucagon -Holding home metoprolol -IV fluids at 75 mL per hour -trend troponins -EKG PRN for chest pain COPD without exacerbation Hypertension Hyperlipidemia Diet-controlled diabetes Chronic diastolic heart failure History of GI bleed -Home medications reviewed and reconciled -Low-dose leading scale insulin with before every meal and at bedtime sugar checks -Holding home aspirin, holding home metoprolol -Trend daily CBCs -Duonebs PRN Patient is a full code Holding DVT prophylaxis in the setting of reported bleeding from the gut
[2020-09-24] MEDS: DOPamine DRIP 800 MG in DEXTROSE/WATER 1 250ML.BAG IV SCH (18:40)
[2020-09-24] MEDS ORDERED: LOSARTAN 50 MG TAB PO SCH (21:00)
[2020-09-24 22:09] LABS: Glucose,Whole Blood 108 mg/dL (75-99)
[2020-09-25 01:12] LABS: Appearance,Urine Clear (Clear); Bacteria,Urine Rare /hpf; Bilirubin,Urine Negative (Negative); Blood,Urine Trace (Negative); Color,Urine Colorless; Glucose,Urine (UA) Negative (Negative); Ketones,Urine Negative (Negative); Leukocyte Esterase,Urine Negative (Negative); Nitrite,Urine Negative (Negative); PH, Urine 6.5 (5.0-8.0); Protein,Urine Negative (Negative); RBC,Urine 4 /hpf (0-5); Squamous Epithelial Cell,Urine 1 /hpf (0-4); Urobilinogen,Urine <2.0 mg/dL (<2.0)
[2020-09-25 02:18] LABS: Magnesium 1.7 mg/dL (1.6-2.3); Potassium 4.9 mmol/L (3.5-5.1)
[2020-09-25] MEDS ORDERED: Magnesium Replacement Protocol 1 EACH MISC MISCELLANE PRN (02:53)
[2020-09-25] MEDS: MAGNESIUM SULFATE-D5W PMX 1 GM in DEXTROSE/WATER 1 100ML.BAG IVPB SCH ×2 (02:59→04:25)
--- NOTE | 2020-09-25 07:08 | XR ---
EXAMINATION TYPE: XR chest 1V DATE OF EXAM: 09/25/2020 COMPARISON: Chest x-ray 09/24/2020 HISTORY: Heart failure TECHNIQUE: Single frontal view of the chest is obtained. FINDINGS: No evident pneumothorax or pleural effusion. Cardiac mediastinal silhouette is stable acco unting for differences in technique. The aorta is dense. Postop change noted to the right shoulder. M inimal patchy basilar density is present. IMPRESSION: There may be some minimal basilar atelectasis.
[2020-09-25 07:14] LABS: Basophils # (A) 0.1 k/uL (0-0.2); Basophils % (A) 0 %; Eosinophils # (A) 0.3 k/uL (0-0.7); Eosinophils % (A) 3 %; HCT 35.7 % (34.0-46.0); HGB 11.7 gm/dL (11.4-16.0); Lymphocytes # (A) 1.8 k/uL (1.0-4.8); Lymphocytes % (A) 18 %; MCHC 32.8 g/dL (31.0-37.0); MCV 91.3 fL (80.0-100.0); Monocytes # (A) 0.7 k/uL (0-1.0); Monocytes % (A) 7 %; Neutrophils # (A) 7.2 k/uL (1.3-7.7); Neutrophils % (A) 71 %; Platelet Count 244 k/uL (150-450); RBC 3.91 m/uL (3.80-5.40); WBC 10.2 k/uL (3.8-10.6)
[2020-09-25 07:30] LABS: Calcium 8.8 mg/dL (8.4-10.2); Magnesium 2.4 mg/dL (1.6-2.3); Potassium 4.7 mmol/L (3.5-5.1)
--- NOTE | 2020-09-25 07:47 | P.CNPUL ---
History of Present Illness Consult date: 09/25/20 History of present illness: 85-year-old female patient, was noticing increased weakness and fatigability and she was having lower blood pressure with her systolic blood pressure was going down to the 90s. She was also noticing some bloody stool and there was a concern for a GI bleed. For that reason she came into the emergency and her stool came back negative for blood. Nevertheless the patient was found to be in third-degree AV block and the patient was admitted to the intensive care unit and she was started on dopamine. Current heart rate is in the mid 30s. Her creatinine is at 1.3. Her potassium level is at 4.9. COVID-19 testing was negative. Troponin was negative. Blood pressure is stable for now. Most recent BP is 158/79. She is afebrile. She is known to have CAD, COPD, diastolic heart failure, hypertension, hyperlipidemia, acid reflux, gastric ulcer with previous history of GI bleed along with history of DVT involving left lower extremity. She has had previous IVC filter placement in 2016. Chest x- ray was normal other than some background cardiomegaly. Echocardiogram from the year 2019 showed an ejection fraction of 55-60%. No other major abnormalities. She does have underlying bundle branch block pattern and back then. Pulmonary artery pressures back and was estimated to be around 44. Mild aortic regurgitation and stenosis also seen. Overnight, close monitoring of her cardiac rhythm the patient showed that she was all over the place in terms of her rhythm. We have seen junctional rhythm, sinus bradycardia, slow A. fib and certainly ventricular rhythms. I'm not absolutely sure that the patient has been in third-degree AV block. Currently she is on dopamine at 4 mcg/kg per minute. Her most recent heart rate is around 40. Review of Systems Constitutional: Reports fatigue, Reports weakness Eyes: denies as per HPI, denies blurred vision, denies bulging eye, denies decreased vision, denies diplopia, denies discharge, denies dry eye, denies irritation, denies itching, denies pain, denies photophobia, denies loss of peripheral vision, denies loss of vision, denies tunnel vision/blind spots Ears: deny: decreased hearing, ear discharge, earache, tinnitus Ears, nose, mouth and throat: Reports as per HPI Breasts: absent: as per HPI, change in shape, gynecomastia, masses, nipple discharge, pain, skin changes, swelling Cardiovascular: Reports dyspnea on exertion Respiratory: Reports dyspnea Gastrointestinal: Reports as per HPI Genitourinary: Reports as per HPI Musculoskeletal: Reports as per HPI Musculoskeletal: absent: ankle pain, ankle stiffness, ankle swelling Integumentary: Reports as per HPI Neurological: Reports as per HPI Psychiatric: Reports as per HPI Endocrine: Reports as per HPI Hematologic/Lymphatic: Reports as per HPI Allergic/Immunologic: Reports as per HPI Past Medical History Past Medical History: Heart Failure, COPD, Diabetes Mellitus, Deep Vein Thrombosis (DVT), GERD/Reflux, GI Bleed, Hyperlipidemia, Hypertension, Osteoarthritis (OA), Renal Disease Additional Past Medical History / Comment(s): NIDDM type II-diet controlled, past neuropathy bilateral feet, decreased renal function, cardiac murmur, hypokalemia, L leg DVT, hemorrhoids, benign colon polyps, hemorrhoids, anemia, lower GI bleed, gastric ulcer. History of Any Multi-Drug Resistant Organisms: None Reported Past Surgical History: Adenoidectomy, Appendectomy, Cholecystectomy, Heart Catheterization, Hysterectomy, Joint Replacement, Tonsillectomy Additional Past Surgical History / Comment(s): IVC filter, L leg skin tear with surgical repair, total hysterectomy, L knee arthroscopy, total L knee arthroplas ty, R shoulder rotator cuff repair with pin, bilateral cataract removals/lens implants, bilateral blepharoplasties, EGD, colonoscopies/benign polypectomy. Past Anesthesia/Blood Transfusion Reactions: No Reported Reaction Additional Past Anesthesia/Blood Transfusion Reaction / Comment(s): CLAUSTROPHOBIA Past Psychological History: Anxiety Additional Psychological History / Comment(s): claustrophobia. Pt resides with her S.O. of 53 yrs (Marcus Gaytan). She owns a cane/walker but does not use them. She does not drive. Her spouse or grand daughter drive. Grand daughter (João) is pt's DPOA. Smoking Status: Former smoker Past Alcohol Use History: None Reported Additional Past Alcohol Use History / Comment(s): STARTED SMOKING AT AGE 17, quit smoking 2017. 1 pack/week. Has an occasional cigarette, but nothing consistent. Past Drug Use History: Marijuana Additional Drug Use History / Comment(s): Tried "edibles" recently, but shahana uses on occasion. (08/2020) - Past Family History Father Family Medical History: Cancer Additional Family Medical History / Comment(s): Father had prostate cancer with mets. He at the age of 74 yrs. Sister(s) Family Medical History: Cancer Mother Family Medical History: COPD Additional Family Medical History / Comment(s): Mother at the age of 86yrs. Brother(s) Family Medical History: Musculoskeletal Disorder, Neurologic Disorder Additional Family Medical History / Comment(s): Brother of parkinson's disease. Medications and Allergies Home Medications Medication Instructions Recorded Confirmed Type Atorvastatin [Lipitor] 20 mg PO DAILY 01/19/16 09/24/20 History Aspirin 81 mg PO DAILY chew 05/08/19 09/24/20 Rx Losartan [Cozaar] 50 mg PO HS #30 tab 05/08/19 09/24/20 Rx Metoprolol Tartrate [Lopressor] 25 mg PO BID #60 tab 05/08/19 09/24/20 Rx Sodium Bicarbonate Tab 650 mg PO DAILY 09/24/20 09/24/20 History methocarbamoL [Robaxin] 500 mg PO TID PRN 09/24/20 09/24/20 History Allergies Allergy/AdvReac Type Severity Reaction Status Date / Time No Known Allergies Allergy Verified 09/24/20 15:00 Physical Exam Vitals: Vital Signs Temp Pulse Resp BP Pulse Ox 09/25/20 07:00 39 L 15 136/55 98 09/25/20 06:30 43 L 16 158/56 98 09/25/20 06:00 37 L 19 155/55 97 09/25/20 05:30 38 L 19 139/58 96 09/25/20 05:00 40 L 21 155/57 96 09/25/20 04:30 42 L 16 144/56 97 09/25/20 04:00 98.0 F 38 L 17 125/53 96 09/25/20 03:30 40 L 17 146/65 96 09/25/20 03:00 40 L 17 134/62 96 09/25/20 02:30 46 L 16 148/59 96 09/25/20 02:00 51 L 21 184/74 98 09/25/20 01:45 47 L 12 161/68 98 09/25/20 01:30 47 L 17 148/78 94 L 09/25/20 01:15 41 L 17 161/58 96 09/25/20 01:00 40 L 10 L 160/57 97 09/25/20 00:45 40 L 18 184/59 97 09/25/20 00:30 44 L 18 177/72 97 09/25/20 00:15 46 L 10 L 177/66 97 09/25/20 00:00 97.6 F 42 L 16 173/64 98 09/24/20 23:45 45 L 15 169/72 98 09/24/20 23:30 40 L 14 155/72 98 09/24/20 23:15 40 L 12 145/62 98 09/24/20 23:07 41 L 15 145/62 97 09/24/20 23:00 98.2 F 40 L 20 145/62 96 09/24/20 21:30 31 L 16 158/79 98 09/24/20 21:00 98.1 F 39 L 16 149/71 99 09/24/20 20:30 42 L 16 106/68 98 09/24/20 20:00 53 L 16 191/79 98 09/24/20 19:15 51 L 16 153/73 99 09/24/20 19:00 41 L 16 145/58 100 09/24/20 18:38 98.4 F 37 L 16 139/75 97 09/24/20 17:00 30 L 16 172/71 98 09/24/20 16:08 40 L 16 145/71 97 09/24/20 15:48 35 L 16 132/69 99 09/24/20 15:00 42 L 16 151/92 97 09/24/20 14:59 35 L 16 165/64 97 09/24/20 13:52 97.9 F 50 L 20 194/57 98 Intake and Output 09/24/20 09/25/20 09/25/20 22:59 06:59 14:59 Intake Total 81.964 813.929 75 Output Total 175 1780 70 Balance -93.036 -966.071 5 Intake: IV 75 800 75 0.9 NaCl- 75 600 75 Magnesium Sulfate 200 Intake, IV Titration 6.964 13.929 Amount DOPamine DRIP 800 mg In 6.964 13.929 Dextrose/Water 1 250ml. bag @ 1 MCG/KG/MIN 1.565 mls/hr IV .Q24H [facility] Rx#: [id number] Oral 0 0 Output: Urine 175 1780 70 Other: Voiding Method Indwelling Catheter Weight 87.6 kg 87.5 kg Gen. appearance, comfortable , not in distress Head exam was generally normal. There was no scleral icterus or corneal arcus. Mucous membranes were moist. Neck was supple and without jugular venous distension, thyromegaly, or carotid bruits. Carotids were easily palpable bilaterally. There was no adenopathy. Lungs were clear to auscultation and percussion, and with normal diaphragmatic excursion. No wheezes or rales were noted. Cardiac exam revealed the PMI to be normally situated and sized. The rhythm is consistent with a third-degree A-V block and the patient is quite bradycardic at this point in time being. The patient has a grade 3 systolic ejection murmur over the left lateral sternal border and apex. Abdominal exam revealed normal bowel sounds. The abdomen was soft, non-tender, and without masses, organomegaly, or appreciable enlargement of the abdominal aorta. Examination of the extremities revealed easily palpable radial, femoral and pedal pulses. There was no cyanosis, clubbing or edema. Examination of the skin revealed no evidence of significant rashes, suspicious appearing nevi or other concerning lesions. Neurologically, the patient is awake and alert and the patient does not have any focal neurological deficit. Cranial nerves are essentially intact. Results - Laboratory Findings CBC and BMP: 09/25/20 06:51 09/25/20 06:51 PT/INR, D-dimer PT 10.0 sec (9.0-12.0) 09/24/20 14:31 INR 0.9 (<1.2) 09/24/20 14:31 Abnormal lab findings: Abnormal Labs 09/24/20 09/24/20 09/24/20 14:31 14:31 14:31 APTT 20.9 L Chloride 110 H Carbon Dioxide 20 L BUN 35 H Creatinine 1.30 H Glucose 106 H POC Glucose (mg/dL) Magnesium TSH 5.520 H Urine Blood Urine Bacteria 09/24/20 09/25/20 09/25/20 22:08 00:55 06:51 APTT Chloride 109 H Carbon Dioxide BUN 27 H Creatinine 1.09 H Glucose 130 H POC Glucose (mg/dL) 108 H Magnesium 2.4 H TSH Urine Blood Trace H Urine Bacteria Rare H - Diagnostic Findings Chest x-ray: image reviewed Assessment and Plan Plan: 1 bradycardia including various rhythms such as junctional, sinus bradycardia, A. fib, and possible third-degree AV block currently on dopamine. Blood pressure under good control. Heart is in the mid 30-40s s. Previous echocardiogram from the year 2019 was essentially within normal limits. She did have underlying history of bundle-branch 2 diabetes mellitus 3 COPD 4 hypertension 5 hyperlipidemia 6 previous history of DVT post-IVC filter placement 7 history of colonic polyps 8 previous history of lower GI bleed and gastric ulcers 9 acute kidney injury, recovered and the patient's renal function is normalized. Current GFR is 47. plan Admit to the intensive care unit IV fluids Dopamine drip per cardiology Cardiology consultation Stop beta blockers , possible pacemaker insertion Obtain echocardiogram Keep in the ICU for another 24 hours.
[2020-09-25] MEDS: INSULIN ASPART (NovoLOG) 100 UNIT/ML VIAL SQ SCH ×3 (09:40→16:56)
[2020-09-25] MEDS: ATORVASTATIN 20 MG TAB PO SCH (09:58)
[2020-09-25] MEDS: SODIUM BICARBONATE TAB 650 MG TAB PO SCH (09:58)
[2020-09-25 11:15] LABS: Glucose,Whole Blood 115 mg/dL (75-99)
--- NOTE | 2020-09-25 12:02 | P.CRDCN ---
History of Present Illness History of present illness: This is Dr. Leija dictating a consult on this patient The patient was interviewed and examined IMPRESSION / ASSESSMENT: Increasing shortness of breath Bradycardia, sinus with intermittent junctional rhythm, on metoprolol Currently on IV dopamine for her headaches Mildly abnormal TSH Type 2 diabetes on metformin Chronic kidney disease PLAN: Cutdown dopamine dose Stop metoprolol completely Allow the heart rate to the recover Address hypothyroidism For consistently elevated blood pressures consistently amlodipine HPI Increasing shortness of breath Progressive worsening No chest pain ROS: No fever chills or rigors, no cough, phlegm or expectoration, no nausea, vomiting or diarrhea, no hematuria, dysuria, no musculoskeletal complaints, no strokes or seizures, no skin lesions. EXAMINATION: Pulse rate in the 40s blood pressure 156/60 741/55 afebrile 97.6 Breath sounds equal bilaterally no rhonchi no crackles Normal heart sounds No lower extremity edema REVIEW OF LABS, ECG & MEDICAL DATA White count 10.2, hemoglobin 35.7 Platelet count 244,000 Sodium 138, potassium 4.7, creatinine 1.09 BUN 27, GFR 47 NT proBNP 4000 line normal troponin Past Medical History Past Medical History: Heart Failure, COPD, Diabetes Mellitus, Deep Vein Thrombosis (DVT), GERD/Reflux, GI Bleed, Hyperlipidemia, Hypertension, Osteoar thritis (OA), Renal Disease Additional Past Medical History / Comment(s): NIDDM type II-diet controlled, past neuropathy bilateral feet, decreased renal function, cardiac murmur, hypokalemia, L leg DVT, hemorrhoids, benign colon polyps, hemorrhoids, anemia, lower GI bleed, gastric ulcer. History of Any Multi-Drug Resistant Organisms: None Reported Past Surgical History: Adenoidectomy, Appendectomy, Cholecystectomy, Heart Catheterization, Hysterectomy, Joint Replacement, Tonsillectomy Additional Past Surgical History / Comment(s): IVC filter, L leg skin tear with surgical repair, total hysterectomy, L knee arthroscopy, total L knee arthroplasty, R shoulder rotator cuff repair with pin, bilateral cataract removals/lens implants, bilateral blepharoplasties, EGD, colonoscopies/benign polypectomy. Past Anesthesia/Blood Transfusion Reactions: No Reported Reaction Additional Past Anesthesia/Blood Transfusion Reaction / Comment(s): CLAUSTROPHOB [place] Past Psychological History: Anxiety Additional Psychological History / Comment(s): claustrophobia. Pt resides with her S.O. of 53 yrs (Marcus Gaytan). She owns a cane/walker but does not use them. She does not drive. Her spouse or grand daughter drive. Grand daughter (João) is pt's DPOA. Smoking Status: Former smoker Past Alcohol Use History: None Reported Additional Past Alcohol Use History / Comment(s): STARTED SMOKING AT AGE 17, quit smoking 2017. 1 pack/week. Has an occasional cigarette, but nothing consistent. Past Drug Use History: Marijuana Additional Drug Use History / Comment(s): Tried "edibles" recently, but shahana uses on occasion. (08/2020) - Past Family History Father Family Medical History: Cancer Additional Family Medical History / Comment(s): Father had prostate cancer with mets. He at the age of 74 yrs. Sister(s) Family Medical History: Cancer Mother Family Medical History: COPD Additional Family Medical History / Comment(s): Mother at the age of 86yrs. Brother(s) Family Medical History: Musculoskeletal Disorder, Neurologic Disorder Additional Family Medical History / Comment(s): Brother of parkinson's disease. Medications and Allergies Home Medications Medication Instructions Recorded Confirmed Type Atorvastatin [Lipitor] 20 mg PO DAILY 01/19/16 09/24/20 History Aspirin 81 mg PO DAILY chew 05/08/19 09/24/20 Rx Losartan [Cozaar] 50 mg PO HS #30 tab 05/08/19 09/24/20 Rx Metoprolol Tartrate [Lopressor] 25 mg PO BID #60 tab 05/08/19 09/24/20 Rx Sodium Bicarbonate Tab 650 mg PO DAILY 09/24/20 09/24/20 History methocarbamoL [Robaxin] 500 mg PO TID PRN 09/24/20 09/24/20 History Allergies Allergy/AdvReac Type Severity Reaction Status Date / Time No Known Allergies Allergy Verified 09/24/20 15:00 Physical Exam Vitals: Vital Signs Temp Pulse Resp BP Pulse Ox 09/25/20 09:30 48 L 14 140/50 98 09/25/20 09:00 41 L 16 133/62 98 09/25/20 08:30 51 L 23 141/55 98 09/25/20 08:00 97.6 F 39 L 20 156/65 98 09/25/20 07:30 39 L 16 131/60 98 09/25/20 07:00 39 L 15 136/55 98 09/25/20 06:30 43 L 16 158/56 98 09/25/20 06:00 37 L 19 155/55 97 09/25/20 05:30 38 L 19 139/58 96 09/25/20 05:00 40 L 21 155/57 96 09/25/20 04:30 42 L 16 144/56 97 09/25/20 04:00 98.0 F 38 L 17 125/53 96 09/25/20 03:30 40 L 17 146/65 96 09/25/20 03:00 40 L 17 134/62 96 09/25/20 02:30 46 L 16 148/59 96 09/25/20 02:00 51 L 21 184/74 98 09/25/20 01:45 47 L 12 161/68 98 09/25/20 01:30 47 L 17 148/78 94 L 09/25/20 01:15 41 L 17 161/58 96 09/25/20 01:00 40 L 10 L 160/57 97 09/25/20 00:45 40 L 18 184/59 97 09/25/20 00:30 44 L 18 177/72 97 09/25/20 00:15 46 L 10 L 177/66 97 09/25/20 00:00 97.6 F 42 L 16 173/64 98 09/24/20 23:45 45 L 15 169/72 98 09/24/20 23:30 40 L 14 155/72 98 09/24/20 23:15 40 L 12 145/62 98 09/24/20 23:07 41 L 15 145/62 97 09/24/20 23:00 98.2 F 40 L 20 145/62 96 09/24/20 21:30 31 L 16 158/79 98 09/24/20 21:00 98.1 F 39 L 16 149/71 99 09/24/20 20:30 42 L 16 106/68 98 09/24/20 20:00 53 L 16 191/79 98 09/24/20 19:15 51 L 16 153/73 99 09/24/20 19:00 41 L 16 145/58 100 09/24/20 18:38 98.4 F 37 L 16 139/75 97 09/24/20 17:00 30 L 16 172/71 98 09/24/20 16:08 40 L 16 145/71 97 09/24/20 15:48 35 L 16 132/69 99 09/24/20 15:00 42 L 16 151/92 97 09/24/20 14:59 35 L 16 165/64 97 09/24/20 13:52 97.9 F 50 L 20 194/57 98 Intake and Output 09/24/20 09/25/20 09/25/20 22:59 06:59 14:59 Intake Total 81.964 813.929 279.566 Output Total 175 1780 270 Balance -93.036 -966.071 9.566 Intake: IV 75 800 225 0.9 NaCl- 75 600 75 Magnesium Sulfate 200 Sodium Chloride 0.9% 1, 150 000 ml @ 75 mls/hr IV . [id number] [facility] Rx#:[id number] Intake, IV Titration 6.964 13.929 54.566 Amount DOPamine DRIP 800 mg In 6.964 13.929 54.566 Dextrose/Water 1 250ml. bag @ 1 MCG/KG/MIN 1.565 mls/hr IV .Q24H [facility] Rx#: [id number] Oral 0 0 Output: Urine 175 1780 270 Other: Voiding Method Indwelling Catheter Indwelling Catheter Weight 87.6 kg 87.5 kg Results 09/25/20 06:51 09/25/20 06:51 Cardiac Enzymes 09/24/20 09/24/20 09/24/20 Range/Units 14:31 19:58 22:39 AST 20 (14-36) U/L Troponin I <0.012 <0.012 (0.000-0.034) ng/mL 09/25/20 Range/Units 01:44 AST (14-36) U/L Troponin I <0.012 (0.000-0.034) ng/mL Coagulation 09/24/20 Range/Units 14:31 PT 10.0 (9.0-12.0) sec APTT 20.9 L (22.0-30.0) sec CBC 09/24/20 09/25/20 Range/Units 14:31 06:51 WBC 9.0 10.2 (3.8-10.6) k/uL RBC 3.92 3.91 (3.80-5.40) m/uL Hgb 11.9 11.7 (11.4-16.0) gm/dL Hct 35.9 35.7 (34.0-46.0) % Plt Count 248 244 (150-450) k/uL Comprehensive Metabolic Panel 09/24/20 09/25/20 09/25/20 Range/Units 14:31 01:50 06:51 Sodium 140 138 (137-145) mmol/L Potassium 4.9 4.9 4.7 (3.5-5.1) mmol/L Chloride 110 H 109 H (98-107) mmol/L Carbon Dioxide 20 L 24 (22-30) mmol/L BUN 35 H 27 H (7-17) mg/dL Creatinine 1.30 H 1.09 H (0.52-1.04) mg/dL Glucose 106 H 130 H (74-99) mg/dL Calcium 9.1 8.8 (8.4-10.2) mg/dL AST 20 (14-36) U/L ALT 12 (4-34) U/L Alkaline Phosphatase 83 (38-126) U/L Total Protein 6.3 (6.3-8.2) g/dL Albumin 3.9 (3.5-5.0) g/dL Current Medications Generic Name Dose Route Start Last Admin Trade Name Freq PRN Reason Stop Dose Admin Acetaminophen 650 mg 09/24/20 18:01 Acetaminophen Tab 325 Mg Tab PO Q6HR PRN Mild Pain or Fever > 100.5 Albuterol/Ipratropium 3 ml 09/24/20 18:03 Ipratropium-Albuterol 3 Ml Neb INHALATION RT-QID PRN Shortness Of Breath Or Wheezing Atorvastatin Calcium 20 mg 09/25/20 09:00 09/25/20 09:58 Atorvastatin 20 Mg Tab PO 20 mg DAILY [facility] Administration Sodium Chloride 1,000 mls @ 20 mls/hr 09/24/20 16:00 09/24/20 23:00 Saline 0.9% IV Not Given .Q24H [facility] Dopamine HCl/Dextrose 800 mg/ 250 mls @ 1.565 mls/hr 09/24/20 18:15 09/25/20 09:41 IV Solution IV 2 mcg/kg/min .Q24H [facility] 3.13 mls/hr Titration Protocol 1 MCG/KG/MIN Insulin Aspart 0 unit 09/25/20 07:30 09/25/20 09:40 Insulin Aspart (Novolog) 100 Unit/Ml Vial SQ Not Given AC-TID [facility] Protocol Methocarbamol 500 mg 09/24/20 17:56 Methocarbamol 500 Mg Tab PO TID PRN Muscle Spasm Miscellaneous Information 1 each 09/25/20 02:53 Magnesium Replacement Protocol 1 Each Misc MISCELLANE DAILY PRN Per Protocol Protocol Naloxone HCl 0.2 mg 09/24/20 15:53 Naloxone 0.4 Mg/Ml 1 Ml Vial IV Q2M PRN Opioid Reversal Naloxone HCl 0.2 mg 09/24/20 18:01 Naloxone 0.4 Mg/Ml 1 Ml Vial IV Q2M PRN Opioid Reversal Sodium Bicarbonate 650 mg 09/25/20 09:00 09/25/20 09:58 Sodium Bicarbonate Tab 650 Mg Tab PO 650 mg DAILY [facility] Administration Intake and Output 09/24/20 09/25/20 09/25/20 22:59 06:59 14:59 Intake Total 81.964 813.929 279.566 Output Total 175 1780 270 Balance -93.036 -966.071 9.566 Intake: IV 75 800 225 0.9 NaCl- 75 600 75 Magnesium Sulfate 200 Sodium Chloride 0.9% 1, 150 000 ml @ 75 mls/hr IV . [id number] [facility] Rx#:[id number] Intake, IV Titration 6.964 13.929 54.566 Amount DOPamine DRIP 800 mg In 6.964 13.929 54.566 Dextrose/Water 1 250ml. bag @ 1 MCG/KG/MIN 1.565 mls/hr IV .Q24H [facility] Rx#: [id number] Oral 0 0 Output: Urine 175 1780 270 Other: Voiding Method Indwelling Catheter Indwelling Catheter Weight 87.6 kg 87.5 kg 09/25/20 06:51 09/25/20 06:51
--- NOTE | 2020-09-25 13:31 | P.PN ---
Subjective Progress Note Date: 09/25/20 (delayed charting seen at 10 am) Principal diagnosis: fatigue Patient is an 85-year-old female history of prior GI bleed secondary to gastric ulcer, chronic diastolic congestive heart failure, chronic kidney disease stage III follow Dr. Max, COPD, and GERD who presented to the emergency department complaining of malaise, hypotension, metabolic bowel movement, and and general ized weakness. In the ER she underwent an extensive evaluation. Her hemoglobin was found to be stable at 11.9, fecal occult blood was negative. EKG showed sinus bradycardia. The remainder of her labs were near baseline. She started having worsening bradycardia. She ultimately required dobutamine drip. Cardiology was contacted and she was admitted to the ICU. Her metoprolol was held. She reports that she has been on metoprolol for approximately 3 years and was initially prescribed by Dr. Springer. She reports that just after her visit with Dr. Meyers was office in June she was called and told to stop her blood pressure medication, over the phone and they told her this was furosemide and she has been off of that sentence. She denies any lightheadedness, dizziness, chest pain, or shortness of breath. She has not gotten up and walking yet know she is still fatigued. General: non toxic, no distress, appears at stated age Derm: warm, dry Head: atraumatic, normocephalic, symmetric Eyes: EOMI, no lid lag, anicteric sclera Mouth: no lip lesion, mucus membranes moist Cardiovascular: S1-S2 bradycardic, no murmur, positive posterior tibial pulse bilateral, Lungs: CTA bilateral, no rhonchi, no rales , no accessory muscle use Abdominal: soft, nontender to palpation, no guarding, no appreciable organomegaly Ext: no gross muscle atrophy, no edema, no contractures Neuro: CN II-XI grossly intact, no focal neuro deficits Psych: Alert, oriented, appropriate affect Symptomatic bradycardia -Cardiology recommendations -Continue on metoprolol, wean dobutamine as able -Telemetry -Echocardiogram Elevated TSH - Free T4 and T 3 normal - recheck in 4-6 weeks as TSH is not greater than 10 and symptoms could be due to bradycardia Diabetes mellitus type 2 - diet controlled - SSI, follow bs HTN - controlled - metoprolol on hold due to bradycardia - hold losartan HLD - statin Obesity with BMI 36.4 - outpatient structued weight loss Compensated diastolic CHF EF 55-60% - Metoprolol, cozaar on hold - not on chronic diuretics CKD III at baseline, chornic metabolic acidosis - Follow Cr - Avoid additional nephrotoxic agents - sodium bicard DVT prophylaxis: SCDs Discussed with: Patient, nursing Anticipated discharge: 2-[address]: home A total of 35 minutes was spent on the care of this complex patient more than 50% of the time was spent in counseling and care coordination. Objective - Vital Signs Vital signs: Vital Signs Temp 97.6 F 09/25/20 08:00 Pulse 48 L 09/25/20 09:30 Resp 14 09/25/20 09:30 BP 140/50 09/25/20 09:30 Pulse Ox 98 09/25/20 09:30 Intake & Output 09/24/20 09/25/20 09/25/20 18:59 06:59 18:59 Intake Total 895.893 279.566 Output Total 1955 270 Balance -1059.107 9.566 Weight 87.6 kg 87.5 kg Intake: IV 875 225 0.9 NaCl- 675 75 Magnesium Sulfate 200 Sodium Chloride 0.9% 1, 150 000 ml @ 75 mls/hr IV . [id number] [facility] Rx#:[id number] Intake, IV Titration 20.893 54.566 Amount DOPamine DRIP 800 mg In 20.893 54.566 Dextrose/Water 1 250ml. bag @ 1 MCG/KG/MIN 1.565 mls/hr IV .Q24H [facility] Rx#: [id number] Oral 0 0 Output: Urine 1955 270 Other: Voiding Method Indwelling Catheter Indwelling Catheter - Labs CBC & Chem 7: 09/25/20 06:51 09/25/20 06:51 Labs: Abnormal Lab Results - Last 24 Hours (Table) 09/24/20 09/24/20 09/24/20 Range/Units 14:31 14:31 14:31 APTT 20.9 L (22.0-30.0) sec Chloride 110 H (98-107) mmol/L Carbon Dioxide 20 L (22-30) mmol/L BUN 35 H (7-17) mg/dL Creatinine 1.30 H (0.52-1.04) mg/dL Glucose 106 H (74-99) mg/dL POC Glucose (mg/dL) (75-99) mg/dL Magnesium (1.6-2.3) mg/dL TSH 5.520 H (0.465-4.680) mIU/L Urine Blood (Negative) Urine Bacteria (None) /hpf 09/24/20 09/25/20 09/25/20 Range/Units 22:08 00:55 06:51 APTT (22.0-30.0) sec Chloride 109 H (98-107) mmol/L Carbon Dioxide (22-30) mmol/L BUN 27 H (7-17) mg/dL Creatinine 1.09 H (0.52-1.04) mg/dL Glucose 130 H (74-99) mg/dL POC Glucose (mg/dL) 108 H (75-99) mg/dL Magnesium 2.4 H (1.6-2.3) mg/dL TSH (0.465-4.680) mIU/L Urine Blood Trace H (Negative) Urine Bacteria Rare H (None) /hpf 09/25/20 Range/Units 11:13 APTT (22.0-30.0) sec Chloride (98-107) mmol/L Carbon Dioxide (22-30) mmol/L BUN (7-17) mg/dL Creatinine (0.52-1.04) mg/dL Glucose (74-99) mg/dL POC Glucose (mg/dL) 115 H (75-99) mg/dL Magnesium (1.6-2.3) mg/dL TSH (0.465-4.680) mIU/L Urine Blood (Negative) Urine Bacteria (None) /hpf
[2020-09-25] MEDS: SODIUM CHLORIDE 0.9% 1,000 ML IV SCH (15:46)
[2020-09-25 16:52] LABS: Glucose,Whole Blood 91 mg/dL (75-99)
[2020-09-25] MEDS: IPRATROPIUM-ALBUTEROL 3 ML NEB INHALATION PRN (19:03)
[2020-09-25] MEDS ORDERED: FUROSEMIDE 10 MG/ML 2 ML VIAL IV ONE (20:00)
[2020-09-25] MEDS: DOPamine DRIP 800 MG in DEXTROSE/WATER 1 250ML.BAG IV SCH (20:10)
[2020-09-25 20:49] LABS: Glucose,Whole Blood 106 mg/dL (75-99)
[2020-09-26 04:30] LABS: HCT 36.2 % (34.0-46.0); HGB 11.8 gm/dL (11.4-16.0); MCH 29.8 pg (25.0-35.0); MCHC 32.8 g/dL (31.0-37.0); Mean Platelet Volume 6.8; Platelet Count 240 k/uL (150-450); RBC 3.97 m/uL (3.80-5.40); RDW 14.4 % (11.5-15.5)
[2020-09-26 04:36] LABS: Prothrombin Time 10.3 sec (9.0-12.0)
[2020-09-26 04:42] LABS: Calcium 9.1 mg/dL (8.4-10.2); Potassium 4.1 mmol/L (3.5-5.1)
[2020-09-26] MEDS: SODIUM CHLORIDE 0.9% 1,000 ML IV SCH (05:00)
[2020-09-26] MEDS: INSULIN ASPART (NovoLOG) 100 UNIT/ML VIAL SQ SCH ×3 (06:51→18:30)
[2020-09-26 06:52] LABS: Glucose,Whole Blood 121 mg/dL (75-99)
[2020-09-26] MEDS: ATORVASTATIN 20 MG TAB PO SCH (08:25)
[2020-09-26] MEDS: SODIUM BICARBONATE TAB 650 MG TAB PO SCH (08:25)
--- NOTE | 2020-09-26 08:43 | XR ---
EXAMINATION TYPE: XR chest 1V DATE OF EXAM: 09/26/2020 COMPARISON: 09/25/2020 HISTORY: Heart failure TECHNIQUE: Single frontal view of the chest is obtained. FINDINGS: Overlying leads. Low lung volumes. Heart size is within normal limits. No focal consolidat ion, pneumothorax or pleural effusion. Minimal bibasilar atelectasis or scarring. Postoperative amador es to the right shoulder.. IMPRESSION: 1. Minimal bibasilar atelectasis or scarring. Relatively stable since 09/25/2020
[2020-09-26] MEDS: IPRATROPIUM-ALBUTEROL 3 ML NEB INHALATION PRN (10:59)
--- NOTE | 2020-09-26 11:06 | P.PN ---
Subjective This is an 85-year-old woman with a medical history of mild aortic stenosis, chronic kidney disease, COPD, GERD, dyslipidemia, hypertension, left bundle branch block, history of GI bleed/gastric ulcer. She follows in the office with Dr. Springer. We are consulted for bradycardia. Patient presents to the emergency department with chief complaint of malaise, hypotension, generalized weakness. She was found to be bradycardic HR 30s on telemetry and was admitted to the intensive care unit and started on dopamine drip. Her beta horacio has been held. DIAGNOSTICS: 05/2019- Lexiscan stress test- small apical fixed defect probably normal. No ischemia Echocardiogram 04/2019- EF 55-60%, mild aortic stenosis with peak/mean gradient 22.6 mmHg/14.4 mmHg, mild aortic regurgitation, mild mitral regurgitation, mild tricuspid regurgitation, mild pulmonary hypertension RVSP 44mmHg 09/26/2020: Patient seen and examined at bedside, no acute distress. Overnight, nursing states the patient's dopamine drip was held and patient had numerous pauses on the heart monitor HR decreased to 20-30s, and Dopamine drip was restarted. Patient currently maintained on IV dopamine 3mcg kilogram per minute, atorvastatin 20 mg daily. Blood pressure 145/73, heart rate 54, afebrile, maintaining oxygen saturation is 96% on room air. Laboratory reviewed, sodium 139, potassium 4.1, serum creatinine 1.24, BUN 27 GENERAL: Well-appearing, well-nourished and in no acute distress. NECK: Supple without JVD or thyromegaly. LUNGS: Breath sounds clear to auscultation bilaterally. Respiration equal and unlabored. No wheezes, rales or rhonchi. HEART: Regular bradycardic rate and rhythm without murmurs, rubs or gallops. S1 and S2 heard. EXTREMITIES: Normal range of motion, no edema. No clubbing or cyanosis. Peripheral pulses intact. ASSESSMENT Bradycardia, sinus with intermittent junctional rhythm Type 2 Diabets COPD History of Hypertension Dyslipidemia Previous history of DVT s/p IVC filter placement PLAN Will slowly wean dopamine dose Continue to hold metoprolol 2D echocardiogram completed, will follow up on results Further recommendations to follow Nurse Practitioner note has been reviewed, I agree with a documented findings and plan of care. Patient was seen and examined. Objective - Vital Signs Vital signs: Vital Signs Temp 97.6 F 09/26/20 08:00 Pulse 58 L 09/26/20 08:00 Resp 15 09/26/20 08:00 BP 134/67 09/26/20 08:00 Pulse Ox 94 L 09/26/20 08:00 Intake & Output 09/25/20 09/26/20 09/26/20 18:59 06:59 18:59 Intake Total 1477.467 332.456 57.293 Output Total 597 2845 160 Balance 880.467 -2512.544 -102.707 Weight 86.2 kg Intake: IV 900 295 40 0.9 NaCl- 75 Sodium Chloride 0.9% 1, 220 40 000 ml @ 20 mls/hr IV . Q24H [facility] Rx#:[id number] Sodium Chloride 0.9% 1, 825 75 000 ml @ 75 mls/hr IV . [id number] [facility] Rx#:[id number] Intake, IV Titration 77.467 37.456 17.293 Amount DOPamine DRIP 800 mg In 77.467 37.456 17.293 Dextrose/Water 1 250ml. bag @ 1 MCG/KG/MIN 1.565 mls/hr IV .Q24H [facility] Rx#: [id number] Oral 500 Output: Urine 597 2845 160 Other: Voiding Method Indwelling Catheter Indwelling Catheter Indwelling Catheter - Labs CBC & Chem 7: 09/26/20 03:40 09/26/20 03:40 Labs: Abnormal Lab Results - Last 24 Hours (Table) 09/25/20 09/25/20 09/26/20 Range/Units 11:13 20:48 03:40 BUN 27 H (7-17) mg/dL Creatinine 1.24 H (0.52-1.04) mg/dL Glucose 132 H (74-99) mg/dL POC Glucose (mg/dL) 115 H 106 H (75-99) mg/dL 09/26/20 Range/Units 06:50 BUN (7-17) mg/dL Creatinine (0.52-1.04) mg/dL Glucose (74-99) mg/dL POC Glucose (mg/dL) 121 H (75-99) mg/dL
[2020-09-26 11:59] LABS: Glucose,Whole Blood 107 mg/dL (75-99)
--- NOTE | 2020-09-26 12:03 | ECHOF ---
Referral Reason:Bradycardia, HF MEASUREMENTS -------- HEIGHT: 154.9 cm WEIGHT: 86.2 kg BP: 111/58 IVSd: 1.4 cm (0.6 - 1.1) LVIDd: 3.7 cm (3.9 - 5.3) LVPWd: 1.4 cm (0.6 - 1.1) IVSs: 1.3 cm LVIDs: 2.7 cm LVPWs: 1.2 cm Ao Diam: 3.9 cm (2.0 - 3.7) AV Cusp: 1.6 cm (1.5 - 2.6) LA Diam: 3.7 cm (2.7 - 3.8) MV E Helio: 0.65 m/s MV DecT: 361 ms MV A Helio: 0.88 m/s MV E/A Ratio: 0.74 AV maxP.28 mmHg AV meanP.17 mmHg RAP: 5.00 mmHg RVSP: 13.89 mmHg FINDINGS -------- This was a technically difficult study with suboptimal views. The left ventricular size is normal. There is moderate concentric left ventricular hypertrophy. O verall left ventricular systolic function is low-normal with, an EF between 50 - 55 %. The RV was not well visualized. The left atrial size is normal. The right atrium was not well visualized. xx ml of Lumason was utilized for enhancement of images. Aortic valve is trileaflet and is mildly thickened. There is mild aortic stenosis present. Peak/m donald gradient across the Aortic Valve is 16.28mmHg / 10.17mmHg. The mitral valve is normal. Mild mitral regurgitation is present. The tricuspid valve appears structurally normal. Mild tricuspid regurgitation present. Right vent ricular systolic pressure is normal at < 35 mmHg. The pulmonic valve was not well visualized. The aortic root size is normal. IVC Not well visulized. There is no pericardial effusion. CONCLUSIONS -------- 1. The left ventricular size is normal. 2. There is moderate concentric left ventricular hypertrophy. 3. Overall left ventricular systolic function is low-normal with, an EF between 50 - 55 %. 4. Aortic valve is trileaflet and is mildly thickened. 5. There is mild aortic stenosis present. 6. Peak/mean gradient across the Aortic Valve is 16.28mmHg / 10.17mmHg. 7. Mild mitral regurgitation is present. 8. Mild tricuspid regurgitation present. 9. There is no pericardial effusion. BORDER PATROL AGENT: Gena Monsalve RDCS
--- NOTE | 2020-09-26 12:34 | US ---
EXAMINATION TYPE: US kidneys/renal and bladder DATE OF EXAM: 09/26/2020 COMPARISON: US dated 04/14/2019 CLINICAL HISTORY: elevated creatinine. EXAM MEASUREMENTS: Right Kidney: 8.9 x 5.3 x 4.1 cm Left Kidney: 9.2 x 4.1 x 4.3 cm Post Void Residual Volume: not assessed as Olmos Catheter is present within bladder. Right Kidney: mid cortical cyst seen = 1.3 x 1.4 x 1.3cm; thinner cortex noted inferiorly; crescent s haped extracapsular fluid is noted which suggests sonographic"sweat sign" for renal failure. Left Kidney: hyperechoic focus seen in superior pole may be vessel wall calcification Bladder: indwelling bladder catheter is noted Cortical medullary differentiation is maintained. IMPRESSION: Findings are similar to prior exam.
--- NOTE | 2020-09-26 12:51 | P.PN ---
Subjective Progress Note Date: 09/26/20 (delayed charting seen at 0900) Principal diagnosis: fatigue Patient is an 85-year-old female history of prior GI bleed secondary to gastric ulcer, chronic diastolic congestive heart failure, chronic kidney disease stage III follow Dr. Max, COPD, and GERD who presented to the emergency department complaining of malaise, hypotension, metabolic bowel movement, and and generali zed weakness. In the ER she underwent an extensive evaluation. Her hemoglobin was found to be stable at 11.9, fecal occult blood was negative. EKG showed sinus bradycardia. The remainder of her labs were near baseline. She started having worsening bradycardia. She ultimately required dobutamine drip. Cardiology was contacted and she was admitted to the ICU. Her metoprolol was held. Doubutamined gtt weaned on 09/25 but HR decreased to 20s necessitating restarting the dobutamine gtt. ECHO- ef 50-55%, moderate concentric LVH She reports that she has been on metoprolol for approximately 3 years and was initially prescribed by Dr. Springer. She reports that just after her visit with Dr. Meyers was office in June she was called and told to stop her blood pressure medication, over the phone and they told her this was furosemide and she has been off of that sentence. She denies any lightheadedness, dizziness, chest pain, and shortness of breath is unchanged from baseline. General: non toxic, no distress, appears at stated age Derm: warm, dry Head: atraumatic, normocephalic, symmetric Eyes: EOMI, no lid lag, anicteric sclera Mouth: no lip lesion, mucus membranes dry Cardiovascular: S1-S2 bradycardic, no murmur, positive posterior tibial pulse bilateral, Lungs: CTA bilateral, no rhonchi, no rales , no accessory muscle use Abdominal: soft, nontender to palpation, no guarding, no appreciable organomegaly Ext: no gross muscle atrophy, no edema, no contractures Neuro: CN II-XI grossly intact, no focal neuro deficits Psych: Alert, oriented, appropriate affect Symptomatic bradycardia -Cardiology recommendations -Continue on metoprolol, wean dobutamine as able -Telemetry -Echocardiogram with preserved EF Elevated TSH - Free T4 and T 3 normal - recheck in 4-6 weeks as TSH is not greater than 10 and symptoms could be due to bradycardia Diabetes mellitus type 2 - diet controlled - SSI, follow bs HTN - controlled - metoprolol on hold due to bradycardia - hold losartan HLD - statin Obesity with BMI 36.4 - outpatient structured weight loss Compensated diastolic CHF EF 55-60% - Metoprolol, cozaar on hold - not on chronic diuretics CKD III at baseline, chronic metabolic acidosis - baseline Cr 1.6 - Follow Cr - Avoid additional nephrotoxic agents - sodium bicarb DVT prophylaxis: SCDs Discussed with: Patient, nursing Anticipated discharge: 2-[address]: home A total of 35 minutes was spent on the care of this complex patient more than 50% of the time was spent in counseling and care coordination. Objective - Vital Signs Vital signs: Vital Signs Temp 97.5 F L 09/26/20 12:00 Pulse 75 09/26/20 12:00 Resp 13 09/26/20 12:00 BP 148/54 09/26/20 12:00 Pulse Ox 92 L 09/26/20 12:00 Intake & Output 09/25/20 09/26/20 09/26/20 18:59 06:59 18:59 Intake Total 1477.467 332.456 300.347 Output Total 597 2845 220 Balance 880.467 -2512.544 80.347 Weight 86.2 kg Intake: IV 900 295 120 0.9 NaCl- 75 Sodium Chloride 0.9% 1, 220 120 000 ml @ 20 mls/hr IV . Q24H [facility] Rx#:[id number] Sodium Chloride 0.9% 1, 825 75 000 ml @ 75 mls/hr IV . [id number] [facility] Rx#:[id number] Intake, IV Titration 77.467 37.456 30.347 Amount DOPamine DRIP 800 mg In 77.467 37.456 30.347 Dextrose/Water 1 250ml. bag @ 1 MCG/KG/MIN 1.565 mls/hr IV .Q24H [facility] Rx#: [id number] Oral 500 150 Output: Urine 597 2845 220 Other: Voiding Method Indwelling Catheter Indwelling Catheter Indwelling Catheter # Bowel Movements 1 - Labs CBC & Chem 7: 09/26/20 03:40 09/26/20 03:40 Labs: Abnormal Lab Results - Last 24 Hours (Table) 09/25/20 09/26/20 09/26/20 Range/Units 20:48 03:40 06:50 BUN 27 H (7-17) mg/dL Creatinine 1.24 H (0.52-1.04) mg/dL Glucose 132 H (74-99) mg/dL POC Glucose (mg/dL) 106 H 121 H (75-99) mg/dL 09/26/20 Range/Units 11:57 BUN (7-17) mg/dL Creatinine (0.52-1.04) mg/dL Glucose (74-99) mg/dL POC Glucose (mg/dL) 107 H (75-99) mg/dL
--- NOTE | 2020-09-26 13:51 | P.PN ---
Subjective Progress Note Date: 09/26/20 Principal diagnosis: Bradycardia, possible third-degree AV block. 85-year-old female patient, was noticing increased weakness and fatigability and she was having lower blood pressure with her systolic blood pressure was going down to the 90s. She was also noticing some bloody stool and there was a concern for a GI bleed. For that reason she came into the emergency and her s tool came back negative for blood. Nevertheless the patient was found to be in third-degree AV block and the patient was admitted to the intensive care unit and she was started on dopamine. Current heart rate is in the mid 30s. Her creatinine is at 1.3. Her potassium level is at 4.9. COVID-19 testing was negative. Troponin was negative. Blood pressure is stable for now. Most recent BP is 158/79. She is afebrile. She is known to have CAD, COPD, diastolic heart failure, hypertension, hyperlipidemia, acid reflux, gastric ulcer with previous history of GI bleed along with history of DVT involving left lower extremity. She has had previous IVC filter placement in 2016. Chest x- ray was normal other than some background cardiomegaly. Echocardiogram from the year 2019 showed an ejection fraction of 55-60%. No other major abnormalities. She does have underlying bundle branch block pattern and back then. Pulmonary artery pressures back and was estimated to be around 44. Mild aortic regurgitation and stenosis also seen. Overnight, close monitoring of her cardiac rhythm the patient showed that she was all over the place in terms of her rhythm. We have seen junctional rhythm, sinus bradycardia, slow A. fib and certainly ventricular rhythms. I'm not absolutely sure that the patient has been in third-degree AV block. Currently she is on dopamine at 4 mcg/kg per minute. Her most recent heart rate is around 40. Patient was reevaluated today on 09/26/2020, patient is still in the ICU., Remains on dopamine at 2 mcg/kg/m. She is on room air with O2 sat sugar 96%. She does not seem to be in any distress. Remains off beta blockers and cardiology is entertaining the possibility of having to place a pacemaker in the next 24 hours if she continues to have episodes of profound bradycardia or high degree AV block. Her echocardiogram showed good ejection fraction, mild aortic stenosis, and mild mitral regurgitation. Patient seems to be very comfortable and not in distress. Chest x-ray showed minimal bibasilar atelectasis and no evidence of significant pulmonary disease noted. CBC is relatively normal left lites are normal BUN is 27 creatinine is 1.24. Medications were all reviewed, patient remains on updrafts, remains on dopamine, insulin as per scale, and she is off beta blockers. Remains on sodium bicarb orally at 650 mg by mouth daily. And her IV fluid is at KVO Objective - Vital Signs Vital signs: Vital Signs Temp 97.5 F L 09/26/20 12:00 Pulse 101 H 09/26/20 13:00 Resp 20 09/26/20 13:00 BP 87/63 09/26/20 13:00 Pulse Ox 96 09/26/20 13:00 Intake & Output 09/25/20 09/26/20 09/26/20 18:59 06:59 18:59 Intake Total 1477.467 332.456 321.782 Output Total 597 2845 220 Balance 880.467 -2512.544 101.782 Weight 86.2 kg Intake: IV 900 295 140 0.9 NaCl- 75 Sodium Chloride 0.9% 1, 220 140 000 ml @ 20 mls/hr IV . Q24H [facility] Rx#:[id number] Sodium Chloride 0.9% 1, 825 75 000 ml @ 75 mls/hr IV . [id number] [facility] Rx#:[id number] Intake, IV Titration 77.467 37.456 31.782 Amount DOPamine DRIP 800 mg In 77.467 37.456 31.782 Dextrose/Water 1 250ml. bag @ 1 MCG/KG/MIN 1.565 mls/hr IV .Q24H [facility] Rx#: [id number] Oral 500 150 Output: Urine 597 2845 220 Other: Voiding Method Indwelling Catheter Indwelling Catheter Indwelling Catheter # Bowel Movements 1 - Exam Physical Exam revealed 85-year-old female in no distress. On room air. Head: Atraumatic, normocephalic. HEENT:[Neck is supple.] [No neck masses.] [No thyromegaly.] [No JVD.] Chest: [Clear throughout, no crackles, no rhonchi, no wheezes.] Cardiac Exam: Bradycardic, [Normal S1 and S2, no S3 gallop, 3/6 systolic murmur thought the precordium. Abdomen: [Obese, Soft, nontender, no megaly, no rebound, no guarding, normal bowel sounds.] Extremities: [No clubbing, no edema, no cyanosis.] Good pulses bilaterally. Neurological Exam: [No focal neurologic deficit.] Alert oriented 3. Psychiatric: Normal mood, affect and normal mental status examination. Skin: No rashes. - Labs CBC & Chem 7: 09/26/20 03:40 09/26/20 03:40 Labs: Abnormal Lab Results - Last 24 Hours (Table) 09/25/20 09/26/20 09/26/20 Range/Units 20:48 03:40 06:50 BUN 27 H (7-17) mg/dL Creatinine 1.24 H (0.52-1.04) mg/dL Glucose 132 H (74-99) mg/dL POC Glucose (mg/dL) 106 H 121 H (75-99) mg/dL 09/26/20 Range/Units 11:57 BUN (7-17) mg/dL Creatinine (0.52-1.04) mg/dL Glucose (74-99) mg/dL POC Glucose (mg/dL) 107 H (75-99) mg/dL Assessment and Plan Assessment: Impression: Intermittent episodes of bradycardia, junctional rhythm, and possible third- degree AV block. Patient is requiring dopamine at 2 mcg/kg/m. History of underlying COPD but relatively stable. Type 2 diabetes. History of DVT and IVC filter placement. History of colonic polyps. Acute kidney injury History of lower GI bleeding and gastric ulcers and poor tolerance to anticoagulation therapy. Benign essential hypertension. Dyslipidemia. Recommendation: Continue dopamine for now as the patient gets quite bradycardic off dopamine. Continue to hold beta blockers and any calcium channel blockers if any. Cardiology is considering pacemaker insertion possibly in the next 24 hours. Echocardiogram, chest x-ray all labs were reviewed today. Continue to monitor the patient in the ICU. Prognosis remains fairly guarded Resume home meds except beta blockers Continue GI and DVT prophylaxis Time with Patient: Less than 30
[2020-09-26 16:47] LABS: Glucose,Whole Blood 123 mg/dL (75-99)
[2020-09-26] MEDS: DOPamine DRIP 800 MG in DEXTROSE/WATER 1 250ML.BAG IV SCH (18:30)
[2020-09-27 05:00] LABS: HCT 34.9 % (34.0-46.0); HGB 11.1 gm/dL (11.4-16.0); MCH 29.5 pg (25.0-35.0); MCHC 31.9 g/dL (31.0-37.0); MCV 92.4 fL (80.0-100.0); Mean Platelet Volume 6.9; Platelet Count 223 k/uL (150-450); RBC 3.77 m/uL (3.80-5.40); RDW 14.7 % (11.5-15.5)
[2020-09-27 05:11] LABS: Calcium 8.7 mg/dL (8.4-10.2); Potassium 4.5 mmol/L (3.5-5.1)
[2020-09-27] MEDS: SODIUM CHLORIDE 0.9% 1,000 ML IV SCH (06:23)
[2020-09-27] MEDS: INSULIN ASPART (NovoLOG) 100 UNIT/ML VIAL SQ SCH ×2 (06:24→12:49)
[2020-09-27 06:34] LABS: Glucose,Whole Blood 101 mg/dL (75-99)
[2020-09-27] MEDS: IPRATROPIUM-ALBUTEROL 3 ML NEB INHALATION PRN ×2 (07:26→11:17)
--- NOTE | 2020-09-27 08:33 | PN ---
PROGRESS NOTE Mrs. Green is an 85-year-old female who presented to the hospital with symptoms of progressive dyspnea, bradycardia and pauses. She had sinus bradycardia, her beta blockers were stopped and subsequently she was on IV dopamine. She has been off the IV dopamine since yesterday. She is feeling better this morning. She denies any chest pain. She denies any dizziness or palpitations. She denies any nausea. She has no further bradycardia. Her lowest heart rate is in the 50s and there is no evidence to have high-grade AV block. She had an echocardiogram performed yesterday that revealed ejection fraction of 50% to 55%. with mild aortic stenosis with mild mitral and tricuspid regurgitation. She underwent an abdominal ultrasound that showed no significant changes. Her chest x-ray showed no acute infiltrate. MEDICATION: At this time include: Lipitor 20 mg daily, insulin, methocarbamol, sodium bicarb. The patient was on metoprolol as an outpatient as well as losartan. PHYSICAL EXAMINATION: Blood pressure 138/70 with a heart rate in 50s and 60s. LUNGS: Clear. Heart regular rate and rhythm S1, S2. No S3 with systolic murmur heard at the base. No diastolic murmur. No rub. ABDOMEN: Soft, nontender. Positive bowel sounds. No megaly. EXTREMITIES: No edema. LAB DATA: Lab data revealed BUN and creatinine 32 and 1.41, potassium 4.5, hemoglobin 11.1. IMPRESSION: 1. Sinus bradycardia, improved. No evidence of high-grade AV block at this time after stopping beta horacio. The patient has been off the IV dopamine for about 24 hours. 2. Dyspnea on exertion, improving. 3. History of hypertension, stable off treatment. 4. Chronic kidney disease. 5. History of diabetes mellitus. 6. Hyperlipidemia. RECOMMENDATIONS: We will continue present therapy. Increase her level of activity. If bed is available in time, we will transfer to telemetry. Increase her activity. If she has no further episode of Alexis arrhythmia, then no pacemaker is needed. Otherwise, she will undergo permanent pacemaker implantation. We will follow her renal function. Patient has a known history of chronic kidney disease. MMODL / IJN: [id number] /
[2020-09-27] MEDS: SODIUM BICARBONATE TAB 650 MG TAB PO SCH (09:25)
[2020-09-27] MEDS: ATORVASTATIN 20 MG TAB PO SCH (09:25)
--- NOTE | 2020-09-27 11:40 | P.GSCN ---
History of Present Illness Consult date: 09/27/20 Reason for Consult: GI bleeding History of present illness: 85-year-old female came to the hospital for evaluation of bradycardia and bright red blood per rectum. Patient states this is been going on for the last few days. Occult stool test was negative on arrival however the patient had a small bowel movement with a small amount of blood as well earlier today. Hemoglobin has been stable. Patient being followed by cardiology. No anticoagulation. Possible discharge tomorrow per primary service. Patient had an episode similar to this with heavier bleeding while she was taking anticoagulants 3 years ago. Underwent colonoscopy which was normal. Patient has a history of known hemorrhoids. Review of Systems The patient denies any acute changes in vision or hearing, no dysphagia or odynophagia, no chest pain or shortness of breath, no dysuria or hematuria, no headache, no runny nose, no melena, no unexplained weight loss Past Medical History Past Medical History: Heart Failure, COPD, Diabetes Mellitus, Deep Vein Thrombosis (DVT), GERD/Reflux, GI Bleed, Hyperlipidemia, Hypertension, Osteoarthritis (OA), Renal Disease Additional Past Medical History / Comment(s): NIDDM type II-diet controlled, past neuropathy bilateral feet, decreased renal function, cardiac murmur, hypokalemia, L leg DVT, hemorrhoids, benign colon polyps, hemorrhoids, anemia, lower GI bleed, gastric ulcer. History of Any Multi-Drug Resistant Organisms: None Reported Past Surgical History: Adenoidectomy, Appendectomy, Cholecystectomy, Heart Catheterization, Hysterectomy, Joint Replacement, Tonsillectomy Additional Past Surgical History / Comment(s): IVC filter, L leg skin tear with surgical repair, total hysterectomy, L knee arthroscopy, total L knee arthroplasty, R shoulder rotator cuff repair with pin, bilateral cataract removals/lens implants, bilateral blepharoplasties, EGD, colonoscopies/benign polypectomy. Past Anesthesia/Blood Transfusion Reactions: No Reported Reaction Additional Past Anesthesia/Blood Transfusion Reaction / Comm: CLAUSTROPHOBIA Past Psychological History: Anxiety Additional Psychological History / Comment(s): claustrophobia. Pt resides with her S.O. of 53 yrs (Marcus Gaytan). She owns a cane/walker but does not use them. She does not drive. Her spouse or grand daughter drive. Grand daughter (João) is pt's DPOA. Smoking Status: Former smoker Past Alcohol Use History: None Reported Additional Past Alcohol Use History / Comment(s): STARTED SMOKING AT AGE 17, quit smoking 2017. 1 pack/week. Has an occasional cigarette, but nothing consistent. Past Drug Use History: Marijuana Additional Drug Use History / Comment(s): Tried "edibles" recently, but shahana uses on occasion. (08/2020) - Past Family History Father Family Medical History: Cancer Additional Family Medical History / Comment(s): Father had prostate cancer with mets. He at the age of 74 yrs. Sister(s) Family Medical History: Cancer Mother Family Medical History: COPD Additional Family Medical History / Comment(s): Mother at the age of 86yrs. Brother(s) Family Medical History: Musculoskeletal Disorder, Neurologic Disorder Additional Family Medical History / Comment(s): Brother of parkinson's disease. Medications and Allergies Home Medications Medication Instructions Recorded Confirmed Type Atorvastatin [Lipitor] 20 mg PO DAILY 01/19/16 09/24/20 History Aspirin 81 mg PO DAILY chew 05/08/19 09/24/20 Rx Losartan [Cozaar] 50 mg PO HS #30 tab 05/08/19 09/24/20 Rx Metoprolol Tartrate [Lopressor] 25 mg PO BID #60 tab 05/08/19 09/24/20 Rx Sodium Bicarbonate Tab 650 mg PO DAILY 09/24/20 09/24/20 History methocarbamoL [Robaxin] 500 mg PO TID PRN 09/24/20 09/24/20 History Allergies Allergy/AdvReac Type Severity Reaction Status Date / Time No Known Allergies Allergy Verified 09/24/20 15:00 Surgical - Exam Vital Signs Temp Pulse Resp BP Pulse Ox 97.9 F 50 L 20 194/57 98 09/24/20 13:52 09/24/20 13:52 09/24/20 13:52 09/24/20 13:52 09/24/20 13:52 Physical exam: General: Well-developed, well-nourished HEENT: Normocephalic, sclerae nonicteric Abdomen: Nontender, nondistended Extremities: No edema Neuro: Alert and oriented Rectal: No masses, small internal and external without evidence of active bleeding, no fissure or fistula noted Results - Labs 09/27/20 03:54 09/27/20 03:59 Abnormal Lab Results - Last 24 Hours (Table) 09/26/20 09/26/20 09/26/20 Range/Units 03:40 11:57 16:46 RBC (3.80-5.40) m/uL Hgb (11.4-16.0) gm/dL Sodium (137-145) mmol/L BUN (7-17) mg/dL Creatinine (0.52-1.04) mg/dL Glucose (74-99) mg/dL POC Glucose (mg/dL) 107 H 123 H (75-99) mg/dL Hemoglobin A1c 6.2 H (4.0-6.0) % 09/27/20 09/27/20 09/27/20 Range/Units 03:54 03:59 06:32 RBC 3.77 L (3.80-5.40) m/uL Hgb 11.1 L (11.4-16.0) gm/dL Sodium 136 L (137-145) mmol/L BUN 32 H (7-17) mg/dL Creatinine 1.41 H (0.52-1.04) mg/dL Glucose 102 H (74-99) mg/dL POC Glucose (mg/dL) 101 H (75-99) mg/dL Hemoglobin A1c (4.0-6.0) % Diabetes panel 09/26/20 09/27/20 Range/Units 03:40 03:59 Sodium 136 L (137-145) mmol/L Potassium 4.5 (3.5-5.1) mmol/L Chloride 103 (98-107) mmol/L Carbon Dioxide 28 (22-30) mmol/L BUN 32 H (7-17) mg/dL Creatinine 1.41 H (0.52-1.04) mg/dL Glucose 102 H (74-99) mg/dL Hemoglobin A1c 6.2 H (4.0-6.0) % Calcium 8.7 (8.4-10.2) mg/dL Calcium panel 09/27/20 Range/Units 03:59 Calcium 8.7 (8.4-10.2) mg/dL Pituitary panel 09/27/20 Range/Units 03:59 Sodium 136 L (137-145) mmol/L Potassium 4.5 (3.5-5.1) mmol/L Chloride 103 (98-107) mmol/L Carbon Dioxide 28 (22-30) mmol/L BUN 32 H (7-17) mg/dL Creatinine 1.41 H (0.52-1.04) mg/dL Glucose 102 H (74-99) mg/dL Calcium 8.7 (8.4-10.2) mg/dL Adrenal panel 09/27/20 Range/Units 03:59 Sodium 136 L (137-145) mmol/L Potassium 4.5 (3.5-5.1) mmol/L Chloride 103 (98-107) mmol/L Carbon Dioxide 28 (22-30) mmol/L BUN 32 H (7-17) mg/dL Creatinine 1.41 H (0.52-1.04) mg/dL Glucose 102 H (74-99) mg/dL Calcium 8.7 (8.4-10.2) mg/dL Assessment and Plan (1) GI bleed Narrative/Plan: Patient with low volume lower GI bleeding. Hemorrhoidal source remains a possibility. If bleeding persists or increases recommend repeat colonoscopy. Will follow. Current Visit: Yes Status: Acute Code(s): K92.2 - GASTROINTESTINAL HEMORRHAGE, UNSPECIFIED SNOMED Code(s): 08578803
[2020-09-27 12:12] LABS: Glucose,Whole Blood 115 mg/dL (75-99)
--- NOTE | 2020-09-27 12:23 | P.PN ---
Subjective Progress Note Date: 09/27/20 Principal diagnosis: Bradycardia, possible third-degree AV block. 85-year-old female patient, was noticing increased weakness and fatigability and she was having lower blood pressure with her systolic blood pressure was going down to the 90s. She was also noticing some bloody stool and there was a concern for a GI bleed. For that reason she came into the emergency and her s tool came back negative for blood. Nevertheless the patient was found to be in third-degree AV block and the patient was admitted to the intensive care unit and she was started on dopamine. Current heart rate is in the mid 30s. Her creatinine is at 1.3. Her potassium level is at 4.9. COVID-19 testing was negative. Troponin was negative. Blood pressure is stable for now. Most recent BP is 158/79. She is afebrile. She is known to have CAD, COPD, diastolic heart failure, hypertension, hyperlipidemia, acid reflux, gastric ulcer with previous history of GI bleed along with history of DVT involving left lower extremity. She has had previous IVC filter placement in 2016. Chest x- ray was normal other than some background cardiomegaly. Echocardiogram from the year 2019 showed an ejection fraction of 55-60%. No other major abnormalities. She does have underlying bundle branch block pattern and back then. Pulmonary artery pressures back and was estimated to be around 44. Mild aortic regurgitation and stenosis also seen. Overnight, close monitoring of her cardiac rhythm the patient showed that she was all over the place in terms of her rhythm. We have seen junctional rhythm, sinus bradycardia, slow A. fib and certainly ventricular rhythms. I'm not absolutely sure that the patient has been in third-degree AV block. Currently she is on dopamine at 4 mcg/kg per minute. Her most recent heart rate is around 40. Patient was reevaluated today on 09/26/2020, patient is still in the ICU., Remains on dopamine at 2 mcg/kg/m. She is on room air with O2 sat sugar 96%. She does not seem to be in any distress. Remains off beta blockers and cardiology is entertaining the possibility of having to place a pacemaker in the next 24 hours if she continues to have episodes of profound bradycardia or high degree AV block. Her echocardiogram showed good ejection fraction, mild aortic stenosis, and mild mitral regurgitation. Patient seems to be very comfortable and not in distress. Chest x-ray showed minimal bibasilar atelectasis and no evidence of significant pulmonary disease noted. CBC is relatively normal left lites are normal BUN is 27 creatinine is 1.24. Medications were all reviewed, patient remains on updrafts, remains on dopamine, insulin as per scale, and she is off beta blockers. Remains on sodium bicarb orally at 650 mg by mouth daily. And her IV fluid is at KVO Patient was reevaluated today on 09/27/2020, patient is doing much better, remains in the ICU, have sinus bradycardia has resolved, no evidence of high degree AV block at this time, the patient is off dopamine. Patient has been off IV dopamine since yesterday, she has no specific complaints except for complaints of bleeding per rectum, patient is known to have history of hemorrhoids, surgery was consulted for rectal bleeding, and there was evidence of small bowel and external hemorrhoids but no active bleeding, no fissures, no fistula, and the surgeon recommended repeat colonoscopy in the patient continues to bleed although she had a colonoscopy in the last couple years. Patient is not receiving any anticoagulation therapy. Has not taken any anticoagulation therapy recently. ABC today is relatively normal hemoglobin is 11.1. Electrolytes are normal BUN is 32 creatinine 1.41 Objective - Vital Signs Vital signs: Vital Signs Temp 98.2 F 09/27/20 11:56 Pulse 64 09/27/20 11:56 Resp 19 09/27/20 11:56 BP 105/77 09/27/20 11:56 Pulse Ox 97 09/27/20 11:56 Intake & Output 09/26/20 09/27/20 09/27/20 18:59 06:59 18:59 Intake Total 421.782 150 Output Total 220 200 0 Balance 201.782 -50 0 Weight 83.6 kg Intake: IV 180 Sodium Chloride 0.9% 1, 180 000 ml @ 20 mls/hr IV . Q24H [facility] Rx#:[id number] Intake, IV Titration 91.782 Amount DOPamine DRIP 800 mg In 31.782 Dextrose/Water 1 250ml. bag @ 1 MCG/KG/MIN 1.565 mls/hr IV .Q24H [facility] Rx#: [id number] Sodium Chloride 0.9% 1, 60 000 ml @ 20 mls/hr IV . Q24H [facility] Rx#:[id number] Oral 150 150 Output: Urine 220 200 0 Other: Voiding Method Indwelling Catheter Bedside Commode # Voids 1 1 1 # Bowel Movements 1 1 - Exam Physical Exam revealed 85-year-old female in no distress. Asymptomatic. Head: Atraumatic, normocephalic. moist mucus membranes. HEENT:[Neck is supple.] [No neck masses.] [No thyromegaly.] [No JVD.] Chest: [Clear throughout, no crackles, no rhonchi, no wheezes.] Cardiac Exam: Normal S1 and S2, no S3 gallop, or he over 6 systolic murmur thought the precordium persists.. Abdomen: [Obese, Soft, nontender, no megaly, no rebound, no guarding, normal bowel sounds.] Extremities: [No clubbing, no edema, no cyanosis.] Good pulses bilaterally. Neurological Exam: [No focal neurologic deficit.] Alert oriented 3. Psychiatric: Normal mood, and normal mental status.. Skin: No rashes. - Labs CBC & Chem 7: 09/27/20 03:54 09/27/20 03:59 Labs: Abnormal Lab Results - Last 24 Hours (Table) 09/26/20 09/26/20 09/27/20 Range/Units 03:40 16:46 03:54 RBC 3.77 L (3.80-5.40) m/uL Hgb 11.1 L (11.4-16.0) gm/dL Sodium (137-145) mmol/L BUN (7-17) mg/dL Creatinine (0.52-1.04) mg/dL Glucose (74-99) mg/dL POC Glucose (mg/dL) 123 H (75-99) mg/dL Hemoglobin A1c 6.2 H (4.0-6.0) % 09/27/20 09/27/20 09/27/20 Range/Units 03:59 06:32 11:51 RBC (3.80-5.40) m/uL Hgb (11.4-16.0) gm/dL Sodium 136 L (137-145) mmol/L BUN 32 H (7-17) mg/dL Creatinine 1.41 H (0.52-1.04) mg/dL Glucose 102 H (74-99) mg/dL POC Glucose (mg/dL) 101 H 115 H (75-99) mg/dL Hemoglobin A1c (4.0-6.0) % Assessment and Plan Assessment: Impression: Intermittent episodes of bradycardia, junctional rhythm, resolved. Most likely was medication induced, secondary to beta blockers that she was taking. History of underlying COPD but relatively stable. Rectal bleeding, will be evaluated by general surgery. Type 2 diabetes. History of DVT and IVC filter placement. History of colonic polyps.Had previous colonoscopy. Acute kidney injuryMI improving Benign essential hypertension. Dyslipidemia. Recommendation: Keep the patient on beta blockers and off dopamine for now. Transfer patient to a cardiac floor/telemetry. surgery consulted for her rectal bleeding. We will sign off for now, and see the patient on when necessary basis. Time with Patient: Less than 30
--- NOTE | 2020-09-27 14:55 | P.PN ---
Subjective Progress Note Date: 09/27/20 (delayed charting seen at 0930) Principal diagnosis: fatigue Patient is an 85-year-old female history of prior GI bleed secondary to gastric ulcer, chronic diastolic congestive heart failure, chronic kidney disease stage III follow Dr. Max, COPD, and GERD who presented to the emergency department complaining of malaise, hypotension, metabolic bowel movement, and and generali zed weakness. In the ER she underwent an extensive evaluation. Her hemoglobin was found to be stable at 11.9, fecal occult blood was negative. EKG showed sinus bradycardia. The remainder of her labs were near baseline. She started having worsening bradycardia. She ultimately required dobutamine drip. Cardiology was contacted and she was admitted to the ICU. Her metoprolol was held. Doubutamined gtt weaned on 09/25 but HR decreased to 20s necessitating restarting the dobutamine gtt. ECHO- ef 50-55%, moderate concentric LVH She reports that she has been on metoprolol for approximately 3 years and was initially prescribed by Dr. Springer. She reports that just after her visit with Dr. Meyers was office in June she was called and told to stop her blood pressure medication, over the phone and they told her this was furosemide and she has been off of that sentence. She denies any lightheadedness, dizziness, chest pain, and shortness of breath is unchanged from baseline. General: non toxic, no distress, appears at stated age Derm: warm, dry Head: atraumatic, normocephalic, symmetric Eyes: EOMI, no lid lag, anicteric sclera Mouth: no lip lesion, mucus membranes dry Cardiovascular: S1-S2 bradycardic, no murmur, positive posterior tibial pulse bilateral, Lungs: CTA bilateral, no rhonchi, no rales , no accessory muscle use Abdominal: soft, nontender to palpation, no guarding, no appreciable organomegaly Ext: no gross muscle atrophy, no edema, no contractures Neuro: CN II-XI grossly intact, no focal neuro deficits Psych: Alert, oriented, appropriate affect Symptomatic bradycardia -Cardiology recommendations: no indication for pacemaker at this time, off metoprolol -Telemetry -Echocardiogram with preserved EF Hematochezia - follow CBC - Surgery recs appreciated: Colonoscopy if continues to bleed - hx of internal hemorrhoids the last 2 colonoscopy 2015 and 2018 Elevated TSH - Free T4 and T 3 normal - recheck in 4-6 weeks as TSH is not greater than 10 and symptoms could be due to bradycardia Diabetes mellitus type 2 - diet controlled - SSI, follow bs HTN - controlled - metoprolol on hold due to bradycardia - hold losartan HLD - statin Obesity with BMI 36.4 - outpatient structured weight loss Compensated diastolic CHF EF 55-60% - Metoprolol, cozaar on hold - not on chronic diuretics CKD III at baseline, chronic metabolic acidosis - baseline Cr 1.6 - Follow Cr - Avoid additional nephrotoxic agents - sodium bicarb DVT prophylaxis: SCDs Discussed with: Patient, nursing Anticipated discharge: in AM Anticipated discharge place: home A total of 35 minutes was spent on the care of this complex patient more than 50% of the time was spent in counseling and care coordination. Objective - Vital Signs Vital signs: Vital Signs Temp 98.2 F 09/27/20 11:56 Pulse 64 09/27/20 11:56 Resp 19 09/27/20 11:56 BP 105/77 09/27/20 11:56 Pulse Ox 97 09/27/20 11:56 Intake & Output 09/26/20 09/27/20 09/27/20 18:59 06:59 18:59 Intake Total 421.782 150 Output Total 220 200 0 Balance 201.782 -50 0 Weight 83.6 kg Intake: IV 180 Sodium Chloride 0.9% 1, 180 000 ml @ 20 mls/hr IV . Q24H [facility] Rx#:[id number] Intake, IV Titration 91.782 Amount DOPamine DRIP 800 mg In 31.782 Dextrose/Water 1 250ml. bag @ 1 MCG/KG/MIN 1.565 mls/hr IV .Q24H [facility] Rx#: [id number] Sodium Chloride 0.9% 1, 60 000 ml @ 20 mls/hr IV . Q24H [facility] Rx#:[id number] Oral 150 150 Output: Urine 220 200 0 Other: Voiding Method Indwelling Catheter Bedside Commode # Voids 1 1 1 # Bowel Movements 1 1 - Labs CBC & Chem 7: 09/27/20 03:54 09/27/20 03:59 Labs: Abnormal Lab Results - Last 24 Hours (Table) 09/26/20 09/27/20 09/27/20 Range/Units 16:46 03:54 03:59 RBC 3.77 L (3.80-5.40) m/uL Hgb 11.1 L (11.4-16.0) gm/dL Sodium 136 L (137-145) mmol/L BUN 32 H (7-17) mg/dL Creatinine 1.41 H (0.52-1.04) mg/dL Glucose 102 H (74-99) mg/dL POC Glucose (mg/dL) 123 H (75-99) mg/dL 09/27/20 09/27/20 Range/Units 06:32 11:51 RBC (3.80-5.40) m/uL Hgb (11.4-16.0) gm/dL Sodium (137-145) mmol/L BUN (7-17) mg/dL Creatinine (0.52-1.04) mg/dL Glucose (74-99) mg/dL POC Glucose (mg/dL) 101 H 115 H (75-99) mg/dL
[2020-09-28] MEDS: SODIUM CHLORIDE 0.9% 1,000 ML IV SCH (06:40)
[2020-09-28 07:46] LABS: HCT 36.3 % (34.0-46.0); MCH 30.2 pg (25.0-35.0); MCV 91.5 fL (80.0-100.0); Mean Platelet Volume 7.3; Platelet Count 245 k/uL (150-450); RBC 3.97 m/uL (3.80-5.40); RDW 14.2 % (11.5-15.5)
[2020-09-28 08:17] LABS: Calcium 8.6 mg/dL (8.4-10.2)
[2020-09-28 08:21] LABS: Potassium 4.7 mmol/L (3.5-5.1)
--- NOTE | 2020-09-28 09:53 | P.DS ---
Providers Date of admission: 09/24/20 15:45 Expected date of discharge: 09/28/20 Attending physician: Julita Campos DO Consults: 09/24/20 15:54 Consult Physician Routine Consulting Provider: [facility] Consult Reason/Comments: bradycadia, pacemaker likely Do you want consulting provider notified?: Already Contacted 09/24/20 20:23 Consult Physician Routine Consulting Provider: Melva French Consult Reason/Comments: icu admission for dopamin drip Do you want consulting provider notified?: Already Contacted 09/27/20 08:18 Consult Physician Routine Consulting Provider: James Sales Consult Reason/Comments: rectal bleeding/hemorrhoids Do you want consulting provider notified?: Yes Primary care physician: Aaron Story Hospital Course: Discharge Diagnosis: Symptomatic Bradycardia Hemotochezia, suspect internal hemorrhoids Elevated TSH DM 2 HTN HLD Obesity with BMI 36.4 Compensated diatolic CHF with EF 55-60% CKD III, Chonic metabolic acidosis Hospital Course: Patient is an 85-year-old female history of prior GI bleed secondary to gastric ulcer, chronic diastolic congestive heart failure, chronic kidney disease stage III follow Dr. Max, COPD, and GERD who presented to the emergency department complaining of malaise, hypotension, metabolic bowel movement, and and generali zed weakness. In the ER she underwent an extensive evaluation. Her hemoglobin was found to be stable at 11.9, fecal occult blood was negative. EKG showed sinus bradycardia. The remainder of her labs were near baseline. She started having worsening bradycardia. She ultimately required dobutamine drip. Cardiology was contacted and she was admitted to the ICU. Her metoprolol was held. Doubutamined gtt weaned on 09/25 but HR decreased to 20s necessitating restarting the dobutamine gtt. she was successfully taken off dobutamine on 09/26. She continued to do well. She had some bright red blood in her stools was evaluated by general surgery who recommended outpatient follow-up due to possible internal hemorrhoids, have been present on her last 2 colonoscopies in 2016 and 2018. Hemoglobin was stable. She was determined stable for discharge home. She'll follow up with a primary care provider in 2-3 days and cardiology in 1-2 weeks. Her metoprolol has been discontinued she will continue on her Losartan. ECHO- ef 50-55%, moderate concentric LVH Patient seen and examined at bedside. No chest pain, light headedness, dizziness, nausea, urianry problems. Vital signs reviewed and stable. General: non toxic, no distress, appears at stated age Derm: warm, dry Head: atraumatic, normocephalic, symmetric Eyes: EOMI, no lid lag, anicteric sclera Mouth: no lip lesion, mucus membranes moist Cardiovascular: S1S2 reg, no murmur, positive posterior tibial pulse bilateral, Lungs: CTA bilateral, no rhonchi, no rales , no accessory muscle use Abdominal: soft, nontender to palpation, no guarding, no appreciable organomegaly Ext: no gross muscle atrophy, no edema, no contractures Neuro: CN II-XI grossly intact, no focal neuro deficits Psych: Alert, oriented, appropriate affect A total of 35 minutes of time were spent preparing this complex discharge summary . Patient Condition at Discharge: Stable Plan - Discharge Summary Discharge Rx Participant: No New Discharge Prescriptions: New Losartan [Cozaar] 50 mg PO DAILY #30 tab Continue Atorvastatin [Lipitor] 20 mg PO DAILY Aspirin 81 mg PO DAILY chew methocarbamoL [Robaxin] 500 mg PO TID PRN PRN Reason: Muscle Spasm Sodium Bicarbonate Tab 650 mg PO DAILY Discontinued Losartan [Cozaar] 50 mg PO HS #30 tab Metoprolol Tartrate [Lopressor] 25 mg PO BID #60 tab Discharge Medication List Atorvastatin [Lipitor] 20 mg PO DAILY 01/19/16 [History] Aspirin 81 mg PO DAILY chew 05/08/19 [Rx] Sodium Bicarbonate Tab 650 mg PO DAILY 09/24/20 [History] methocarbamoL [Robaxin] 500 mg PO TID PRN 09/24/20 [History] Losartan [Cozaar] 50 mg PO DAILY #30 tab 09/28/20 [Rx] Follow up Appointment(s)/Referral(s): James Sales MD [Medical Doctor] - 1 Week [facility], [NON-STAFF] - 1-2 Days Nadine Springer MD [STAFF PHYSICIAN] - 2 Weeks Aaron Story MD [Primary Care Provider] - 1-2 Days (This will be a new patient appointment and a hospital follow up appointment. ) Activity/Diet/Wound Care/Special Instructions: Activity: as tolerated Diet: heart health Special Instructions: Change losartan to daily instead of at night Discharge Disposition: HOME SELF-CARE
[2020-09-28] MEDS: SODIUM BICARBONATE TAB 650 MG TAB PO SCH (10:11)
[2020-09-28] MEDS: ATORVASTATIN 20 MG TAB PO SCH (10:11)
[2020-09-28] MEDS: LOSARTAN 50 MG TAB PO SCH (10:11)
--- NOTE | 2020-09-28 10:11 | P.PN ---
Subjective Progress Note Date: 09/28/20 HISTORY OF PRESENT ILLNESS: Patient examined this morning at the bedside. Patient denies dizziness or lightheadedness. She denies chest pain or pressure. She denies shortness of br eath. Blood pressure this morning 167/90. She has been resumed on her Cozaar per medicine. Telemetry reveals sinus mechanism with heart rate in the 60s. She has had some occasional 2 second pauses while sleeping. Echocardiogram performed revealed ejection fraction 50-55%. PHYSICAL EXAM: VITAL SIGNS: Reviewed. GENERAL: Well-developed in no acute distress. NECK: Supple. No JVD or thyromegaly LUNGS: Respirations even and unlabored. Lungs essentially clear to auscultation bilaterally. HEART: Regular rate and rhythm. S1 and S2 heard. Systolic murmur noted. EXTREMITIES: Normal range of motion. No clubbing or cyanosis. Peripheral pulses intact. No lower extremity edema ASSESSMENT: Sinus bradycardia Hypertension Chronic kidney disease Diabetes mellitus Hyperlipidemia Mild aortic stenosis PLAN: Continue to hold AV brent blocking agents Cozaar resumed per medicine Patient is stable for discharge home today from a cardiac standpoint. She is to follow up outpatient with Dr. Springer. Nurse practitioner note has been reviewed by physician. Signing provider agrees with the documented findings, assessment, and plan of care. Objective - Vital Signs Vital signs: Vital Signs Temp 98.0 F 09/28/20 04:15 Pulse 70 09/28/20 04:15 Resp 16 09/28/20 04:15 BP 167/90 09/28/20 04:15 Pulse Ox 95 09/28/20 04:15 Intake & Output 09/27/20 09/28/20 09/28/20 18:59 06:59 18:59 Intake Total 240 220 Output Total 0 Balance 240 220 Weight 84.2 kg Intake: Oral 240 220 Output: Urine 0 Other: Voiding Method Bedside Commode # Voids 2 1 # Bowel Movements 1 - Labs CBC & Chem 7: 09/28/20 07:20 09/28/20 07:20 Labs: Abnormal Lab Results - Last 24 Hours (Table) 09/27/20 09/28/20 09/28/20 Range/Units 11:51 07:20 07:20 WBC 12.0 H (3.8-10.6) k/uL BUN 37 H (7-17) mg/dL Creatinine 1.44 H (0.52-1.04) mg/dL POC Glucose (mg/dL) 115 H (75-99) mg/dL
--- NOTE | 2020-09-28 12:45 | P.PN ---
<Edith Foy - Last Filed: 09/28/20 12:40> Subjective Progress Note Date: 09/28/20 CHIEF COMPLAINT: GI bleeding HISTORY OF PRESENT ILLNESS: Surgical service following regards to patient's GI bleeding which is likely related to hemorrhoids. She had a bowel movement last night and this morning with no evidence of bleeding. She denies any abdominal pain. Denies any nausea or vomiting. Tolerating diet. Afebrile. Hemoglobin has increased from 11-12. White count elevated at 12. Cardiology is following in regards to patient's bradycardia. Patient is planning to be discharged today PHYSICAL EXAM: VITAL SIGNS: Reviewed. GENERAL: Well-developed in no acute distress. HEENT: No sclera icterus. Extraocular movements grossly intact. Moist buccal mucosa. Head is atraumatic, normocephalic. ABDOMEN: Soft. Nondistended. Nontender. NEUROLOGIC: Alert and oriented. Cranial nerves II through XII grossly intact. ASSESSMENT: 1. Lower GI bleed likely secondary to hemorrhoids. Bleeding has now resolved. Hemoglobin is stable. PLAN: -Patient is stable from surgical standpoint for discharge -Continue heart healthy diet Physician Insurance Sales Specialist note has been reviewed by physician. Signing provider agrees with the documented findings, assessment, and plan of care. Objective - Vital Signs Vital signs: Vital Signs Temp 98.9 F 09/28/20 11:05 Pulse 50 L 09/28/20 11:05 Resp 16 09/28/20 11:05 BP 186/78 09/28/20 11:05 Pulse Ox 96 09/28/20 11:05 Intake & Output 09/27/20 09/28/20 09/28/20 18:59 06:59 18:59 Intake Total 240 220 Output Total 0 Balance 240 220 Weight 84.2 kg Intake: Oral 240 220 Output: Urine 0 Other: Voiding Method Bedside Commode Bedside Commode # Voids 2 1 1 # Bowel Movements 1 - Labs CBC & Chem 7: 09/28/20 07:20 09/28/20 07:20 Labs: Abnormal Lab Results - Last 24 Hours (Table) 09/28/20 09/28/20 Range/Units 07:20 07:20 WBC 12.0 H (3.8-10.6) k/uL BUN 37 H (7-17) mg/dL Creatinine 1.44 H (0.52-1.04) mg/dL <Boutt,James - Last Filed: 09/28/20 16:04> Subjective As above. Patient doing well. No further bleeding. Hemoglobin is stable. Stable for discharge from surgical standpoint. Objective - Vital Signs Vital signs: Vital Signs Temp 98.9 F 09/28/20 11:05 Pulse 50 L 09/28/20 11:05 Resp 16 09/28/20 11:05 BP 186/78 09/28/20 11:05 Pulse Ox 96 09/28/20 11:05 Intake & Output 09/27/20 09/28/20 09/28/20 18:59 06:59 18:59 Intake Total 240 460 Output Total 0 Balance 240 460 Weight 84.2 kg Intake: Oral 240 460 Output: Urine 0 Other: Voiding Method Bedside Commode Bedside Commode # Voids 2 1 1 # Bowel Movements 1 - Labs CBC & Chem 7: 09/28/20 07:20 09/28/20 07:20 Labs: Abnormal Lab Results - Last 24 Hours (Table) 09/28/20 09/28/20 Range/Units 07:20 07:20 WBC 12.0 H (3.8-10.6) k/uL BUN 37 H (7-17) mg/dL Creatinine 1.44 H (0.52-1.04) mg/dL Assessment and Plan (1) GI bleed Current Visit: Yes Status: Acute Code(s): K92.2 - GASTROINTESTINAL HEMORRHAGE, UNSPECIFIED SNOMED Code(s): 10567403
[2020-09-29 09:26] LABS: Calcium 8.8 mg/dL (8.4-10.2); Potassium 4.6 mmol/L (3.5-5.1)
[2020-09-29 09:27] LABS: HCT 33.4 % (34.0-46.0); HGB 11.1 gm/dL (11.4-16.0); MCH 30.9 pg (25.0-35.0); MCHC 33.3 g/dL (31.0-37.0); MCV 92.8 fL (80.0-100.0); Mean Platelet Volume 7.4; Platelet Count 217 k/uL (150-450); RDW 14.2 % (11.5-15.5)
--- NOTE | 2020-09-29 10:36 | P.PN ---
<Edith Foy - Last Filed: 09/29/20 10:31> Subjective Progress Note Date: 09/29/20 CHIEF COMPLAINT: GI bleeding HISTORY OF PRESENT ILLNESS: Surgical service following regards to patient's GI bleeding which is likely related to hemorrhoids. Patient is having formed normal stools without blood. She denies any rectal pain or abdominal pain. Denies any nausea or vomiting. Tolerating diet. Patient did have 3-4 second cardiac pauses. Cardiology is following and patient is being evaluated for possible pacemaker placement. Afebrile. WBC 8.0 hemoglobin 11.1 PHYSICAL EXAM: VITAL SIGNS: Reviewed. GENERAL: Well-developed in no acute distress. HEENT: No sclera icterus. Extraocular movements grossly intact. Moist buccal mucosa. Head is atraumatic, normocephalic. ABDOMEN: Soft. Nondistended. Nontender. NEUROLOGIC: Alert and oriented. Cranial nerves II through XII grossly intact. ASSESSMENT: 1. Lower GI bleed likely secondary to hemorrhoids. Bleeding has now resolved. Hemoglobin is stable. PLAN: -No surgical intervention planned -Continue cardiology workup for possible pacemaker placement regarding cardiac process Physician Fiber Technologist note has been reviewed by physician. Signing provider agrees with the documented findings, assessment, and plan of care. Objective - Vital Signs Vital signs: Vital Signs Temp 98.8 F 09/29/20 08:25 Pulse 69 09/29/20 08:25 Resp 18 09/29/20 08:25 BP 169/72 09/29/20 08:25 Pulse Ox 98 09/29/20 08:25 Intake & Output 09/28/20 09/29/20 09/29/20 18:59 06:59 18:59 Intake Total 460 790 780 Balance 460 790 780 Weight 85 kg Intake: Oral 460 790 780 Other: Voiding Method Bedside Commode Bedside Commode Bedside Commode # Voids 1 2 - Labs CBC & Chem 7: 09/29/20 08:08 09/29/20 08:08 Labs: Abnormal Lab Results - Last 24 Hours (Table) 09/29/20 09/29/20 Range/Units 08:08 08:08 RBC 3.60 L (3.80-5.40) m/uL Hgb 11.1 L (11.4-16.0) gm/dL Hct 33.4 L (34.0-46.0) % Sodium 136 L (137-145) mmol/L BUN 39 H (7-17) mg/dL Creatinine 1.49 H (0.52-1.04) mg/dL Glucose 161 H (74-99) mg/dL <James Sales - Last Filed: 09/29/20 11:11> Subjective As above. No further bleeding. Plans are for possible pacemaker placement. We'll sign off. Please call if needed. Objective - Vital Signs Vital signs: Vital Signs Temp 98.8 F 09/29/20 08:25 Pulse 69 09/29/20 08:25 Resp 18 09/29/20 08:25 BP 169/72 09/29/20 08:25 Pulse Ox 98 09/29/20 08:25 Intake & Output 09/28/20 09/29/20 09/29/20 18:59 06:59 18:59 Intake Total 460 790 780 Balance 460 790 780 Weight 85 kg Intake: Oral 460 790 780 Other: Voiding Method Bedside Commode Bedside Commode Bedside Commode # Voids 1 2 - Labs CBC & Chem 7: 09/29/20 08:08 09/29/20 08:08 Labs: Abnormal Lab Results - Last 24 Hours (Table) 09/29/20 09/29/20 Range/Units 08:08 08:08 RBC 3.60 L (3.80-5.40) m/uL Hgb 11.1 L (11.4-16.0) gm/dL Hct 33.4 L (34.0-46.0) % Sodium 136 L (137-145) mmol/L BUN 39 H (7-17) mg/dL Creatinine 1.49 H (0.52-1.04) mg/dL Glucose 161 H (74-99) mg/dL Assessment and Plan (1) GI bleed Current Visit: Yes Status: Acute Code(s): K92.2 - GASTROINTESTINAL HEMORRHAGE, UNSPECIFIED SNOMED Code(s): 49738673
[2020-09-29] MEDS: SODIUM CHLORIDE 0.9% 1,000 ML IV SCH (10:48)
[2020-09-29] MEDS: ATORVASTATIN 20 MG TAB PO SCH (11:00)
[2020-09-29] MEDS: LOSARTAN 50 MG TAB PO SCH (11:00)
[2020-09-29] MEDS: SODIUM BICARBONATE TAB 650 MG TAB PO SCH (11:00)
[2020-09-29 13:16] VITALS: BMI 35.4
--- NOTE | 2020-09-29 13:28 | P.PN ---
Subjective Progress Note Date: 09/29/20 (delayed charting seen at 1030) Principal diagnosis: fatigue Patient is an 85-year-old female history of prior GI bleed secondary to gastric ulcer, chronic diastolic congestive heart failure, chronic kidney disease stage III follow Dr. Max, COPD, and GERD who presented to the emergency department complaining of malaise, hypotension, metabolic bowel movement, and and generali zed weakness. In the ER she underwent an extensive evaluation. Her hemoglobin was found to be stable at 11.9, fecal occult blood was negative. EKG showed sinus bradycardia. The remainder of her labs were near baseline. She started having worsening bradycardia. She ultimately required dobutamine drip. Cardiology was contacted and she was admitted to the ICU. Her metoprolol was held. Doubutamined gtt weaned on 09/25 but HR decreased to 20s necessitating restarting the dobutamine gtt. ECHO- ef 50-55%, moderate concentric LVH She reports that she has been on metoprolol for approximately 3 years and was initially prescribed by Dr. Springer. She reports that just after her visit with Dr. Meyers was office in June she was called and told to stop her blood pressure medication, over the phone and they told her this was furosemide and she has been off of that sentence. She denies any lightheadedness, dizziness, chest pain, and shortness of breath is unchanged from baseline. General: non toxic, no distress, appears at stated age Derm: warm, dry Head: atraumatic, normocephalic, symmetric Eyes: EOMI, no lid lag, anicteric sclera Mouth: no lip lesion, mucus membranes dry Cardiovascular: S1-S2 bradycardic, no murmur, positive posterior tibial pulse bilateral, Lungs: CTA bilateral, no rhonchi, no rales , no accessory muscle use Abdominal: soft, nontender to palpation, no guarding, no appreciable organomegaly Ext: no gross muscle atrophy, no edema, no contractures Neuro: CN II-XI grossly intact, no focal neuro deficits Psych: Alert, oriented, appropriate affect Symptomatic bradycardia -Cardiology recommendations: no indication for pacemaker at this time, off metoprolol -Telemetry -Echocardiogram with preserved EF Hematochezia - follow CBC - Surgery recs appreciated: Colonoscopy if continues to bleed - hx of internal hemorrhoids the last 2 colonoscopy 2015 and 2018 Elevated TSH - Free T4 and T 3 normal - recheck in 4-6 weeks as TSH is not greater than 10 and symptoms could be due to bradycardia Diabetes mellitus type 2 - diet controlled - SSI, follow bs HTN - controlled - metoprolol on hold due to bradycardia - hold losartan HLD - statin Obesity with BMI 36.4 - outpatient structured weight loss Compensated diastolic CHF EF 55-60% - Metoprolol, cozaar on hold - not on chronic diuretics CKD III at baseline, chronic metabolic acidosis - baseline Cr 1.6 - Follow Cr - Avoid additional nephrotoxic agents - sodium bicarb DVT prophylaxis: SCDs Discussed with: Patient, nursing Anticipated discharge: in AM Anticipated discharge place: home A total of 35 minutes was spent on the care of this complex patient more than 50% of the time was spent in counseling and care coordination. Objective - Vital Signs Vital signs: Vital Signs Temp 97.8 F 09/29/20 11:40 Pulse 43 L 09/29/20 11:40 Resp 18 09/29/20 11:40 BP 153/79 09/29/20 11:40 Pulse Ox 99 09/29/20 11:40 Intake & Output 09/28/20 09/29/20 09/29/20 18:59 06:59 18:59 Intake Total 460 790 960 Balance 460 790 960 Weight 85 kg 85 kg Intake: Oral 460 790 960 Other: Voiding Method Bedside Commode Bedside Commode Bedside Commode # Voids 1 2 1 # Bowel Movements 1 - Labs CBC & Chem 7: 09/29/20 08:08 09/29/20 08:08 Labs: Abnormal Lab Results - Last 24 Hours (Table) 09/29/20 09/29/20 Range/Units 08:08 08:08 RBC 3.60 L (3.80-5.40) m/uL Hgb 11.1 L (11.4-16.0) gm/dL Hct 33.4 L (34.0-46.0) % Sodium 136 L (137-145) mmol/L BUN 39 H (7-17) mg/dL Creatinine 1.49 H (0.52-1.04) mg/dL Glucose 161 H (74-99) mg/dL
--- NOTE | 2020-09-29 14:28 | P.PN ---
Subjective Progress Note Date: 09/29/20 HISTORY OF PRESENT ILLNESS: Patient examined this morning at the bedside. Patient denies dizziness or lightheadedness. She denies chest pain or pressure. She denies shortness of br eath. Blood pressure this morning 167/90. She has been resumed on her Cozaar per medicine. Telemetry reveals sinus mechanism with heart rate in the 60s. She has had some occasional 2 second pauses while sleeping. Echocardiogram performed revealed ejection fraction 50-55%. 09/29/2020 Patient examined this morning at the bedside. Patient denies chest pain or pressure. Denies shortness of breath. Patient had some pauses overnight ranging from 2-4 seconds. Patient states she does not know if she has a history of sleep apnea and has never had a sleep study before. She denies any dizziness or li ghtheadedness. Creatinine 1.49. PHYSICAL EXAM: VITAL SIGNS: Reviewed. GENERAL: Well-developed in no acute distress. NECK: Supple. No JVD or thyromegaly LUNGS: Respirations even and unlabored. Lungs essentially clear to auscultation bilaterally. HEART: Bradycardic. Regular rate and rhythm. S1 and S2 heard. Systolic murmur noted. EXTREMITIES: Normal range of motion. No clubbing or cyanosis. Peripheral pulses intact. No lower extremity edema ASSESSMENT: Sinus bradycardia Hypertension Chronic kidney disease Diabetes mellitus Hyperlipidemia Mild aortic stenosis PLAN: Continue to hold AV brent blocking agents Continue Cozaar. Reduce dose to 25mg Add hydralazine 25 mg twice a day Continue telemetry monitoring Anticipate permanent pacemaker insertion on Friday with Dr. Springer Nurse practitioner note has been reviewed by physician. Signing provider agrees with the documented findings, assessment, and plan of care. Objective - Vital Signs Vital signs: Vital Signs Temp 98.8 F 09/29/20 08:25 Pulse 69 09/29/20 08:25 Resp 18 09/29/20 08:25 BP 169/72 09/29/20 08:25 Pulse Ox 98 09/29/20 08:25 Intake & Output 09/28/20 09/29/20 09/29/20 18:59 06:59 18:59 Intake Total 460 790 780 Balance 460 790 780 Weight 85 kg Intake: Oral 460 790 780 Other: Voiding Method Bedside Commode Bedside Commode Bedside Commode # Voids 1 2 - Labs CBC & Chem 7: 09/29/20 08:08 09/29/20 08:08 Labs: Abnormal Lab Results - Last 24 Hours (Table) 09/29/20 09/29/20 Range/Units 08:08 08:08 RBC 3.60 L (3.80-5.40) m/uL Hgb 11.1 L (11.4-16.0) gm/dL Hct 33.4 L (34.0-46.0) % Sodium 136 L (137-145) mmol/L BUN 39 H (7-17) mg/dL Creatinine 1.49 H (0.52-1.04) mg/dL Glucose 161 H (74-99) mg/dL
[2020-09-29] MEDS: hydrALAZINE HCL 25 MG TAB PO SCH (19:59)
[2020-09-30] MEDS: SODIUM CHLORIDE 0.9% 1,000 ML IV SCH ×2 (04:23→19:28)
[2020-09-30] MEDS: LOSARTAN 25 MG TAB PO SCH (08:55)
[2020-09-30] MEDS: LORATADINE 10 MG TAB PO SCH (08:57)
[2020-09-30] MEDS: guaiFENesin 600 MG TABLET.ER PO SCH ×2 (08:57→19:27)
[2020-09-30] MEDS: hydrALAZINE HCL 25 MG TAB PO SCH ×2 (08:57→19:27)
[2020-09-30] MEDS: ATORVASTATIN 20 MG TAB PO SCH (08:57)
[2020-09-30] MEDS: SODIUM BICARBONATE TAB 650 MG TAB PO SCH (08:57)
[2020-09-30 10:11] LABS: Calcium 8.8 mg/dL (8.4-10.2); Potassium 4.6 mmol/L (3.5-5.1)
--- NOTE | 2020-09-30 10:53 | P.PN ---
Subjective Progress Note Date: 09/30/20 Principal diagnosis: fatigue Patient is an 85-year-old female history of prior GI bleed secondary to gastric ulcer, chronic diastolic congestive heart failure, chronic kidney disease stage III follow Dr. Max, COPD, and GERD who presented to the emergency department complaining of malaise, hypotension, metabolic bowel movement, and and generalized weakness. In the ER she underwent an extensive evaluation. Her hemoglobin was found to be stable at 11.9, fecal occult blood was negative. EKG showed sinus bradycardia. The remainder of her labs were near baseline. She started having worsening bradycardia. She ultimately required dobutamine drip. Cardiology was contacted and she was admitted to the ICU. Her metoprolol was held. Doubutamined gtt weaned on 09/25 but HR decreased to 20s necessitating restarting the dobutamine gtt. She was successfully taken off dobutamine on 09/26. She continued to do well. She had some bright red blood in her stools was evaluated by general surgery who recommended outpatient follow-up due to possible internal hemorrhoids, which have been present on her last 2 colonoscopies in 2015 and 2018. Hemoglobin was stable. Initially the plan was for discharge home but her blood pressure increased and she did not feel well. She was monitored again overnight and had 4.1 sec pauses and plan is currently for PPM 10/02 ECHO- ef 50-55%, moderate concentric LVH Patient seen and examined at bedside. She denies lightheadedness, dizziness, chest pain, and shortness of breath that are unchanged from baseline. General: non toxic, no distress, appears at stated age Derm: warm, dry Head: atraumatic, normocephalic, symmetric Eyes: EOMI, no lid lag, anicteric sclera Mouth: no lip lesion, mucus membranes dry Cardiovascular: S1-S2 bradycardic, no murmur, positive posterior tibial pulse bilateral, Lungs: Decreased bs bilateral, no rhonchi, no rales , no accessory muscle use Abdominal: soft, nontender to palpation, no guarding, no appreciable organomegaly Ext: no gross muscle atrophy, no edema, no contractures Neuro: CN II-XI grossly intact, no focal neuro deficits Psych: Alert, oriented, appropriate affect Symptomatic bradycardia - Cardiology recommendations: + pacemaker at this time, off metoprolol - Telemetry - Echocardiogram with preserved EF Hematochezia - follow CBC - Surgery recs appreciated: Colonoscopy if continues to bleed - hx of internal hemorrhoids the last 2 colonoscopy 2015 and 2018 Elevated TSH - Free T4 and T 3 normal - recheck in 4-6 weeks as TSH is not greater than 10 and symptoms could be due to bradycardia Diabetes mellitus type 2 - diet controlled - SSI, follow bs HTN - controlled - metoprolol on hold due to bradycardia - hold losartan HLD - statin Obesity with BMI 36.4 - outpatient structured weight loss Compensated diastolic CHF EF 55-60% - Metoprolol, cozaar on hold - not on chronic diuretics CKD III at baseline, chronic metabolic acidosis - baseline Cr 1.6 - Follow Cr - Avoid additional nephrotoxic agents - sodium bicarb DVT prophylaxis: SCDs Discussed with: Patient, nursing Anticipated discharge: in AM Anticipated discharge place: home A total of 35 minutes was spent on the care of this complex patient more than 50% of the time was spent in counseling and care coordination. Objective - Vital Signs Vital signs: Vital Signs Temp 98.1 F 09/30/20 08:00 Pulse 64 09/30/20 08:00 Resp 18 09/30/20 08:00 BP 141/63 09/30/20 08:00 Pulse Ox 98 09/30/20 08:00 Intake & Output 09/29/20 09/30/20 09/30/20 18:59 06:59 18:59 Intake Total 1140 Balance 1140 Weight 85 kg 133 kg Intake: Oral 1140 Other: Voiding Method Bedside Commode Toilet # Voids 1 1 # Bowel Movements 1 - Labs CBC & Chem 7: 09/29/20 08:08 09/30/20 09:19 Labs: Abnormal Lab Results - Last 24 Hours (Table) 09/30/20 Range/Units 09:19 Sodium 136 L (137-145) mmol/L BUN 45 H (7-17) mg/dL Creatinine 1.34 H (0.52-1.04) mg/dL Glucose 247 H (74-99) mg/dL
--- NOTE | 2020-09-30 13:09 | PN ---
PROGRESS NOTE Mrs. Green is an 85-year-old female who presented with symptoms of dizziness and fatigue and was found to have significant bradycardia. Her beta horacio was stopped but she continues to have long pauses off the beta horacio. She feels dizzy at times, but no syncope. Her breathing is stable. Otherwise, she denies any chest pain no palpitation. She continues to be on Lipitor 20 mg daily, hydralazine 25 mg twice a day, losartan 25 mg daily. PHYSICAL EXAMINATION: Blood pressure 122/70 with a heart rate 40s and 50s. LUNGS: Clear. HEART: Regular rate and rhythm S1, S2. No S3. No rub. ABDOMEN: Soft and nontender. EXTREMITIES: No edema. LAB DATA: BUN and creatinine 45 and 1.34, potassium 4.6. IMPRESSION: 1. Bradycardia, persistent with long pauses off the beta horacio. 2. Hypertension. 3. Chronic kidney disease. RECOMMENDATION: I will continue present therapy. We will follow her blood pressure on a close basis. We will tentatively proceed with permanent pacemaker implantation on Friday. I have discussed those findings with the patient and she has full understanding and agreement. MMODL / IJN: [id number] /
[2020-10-01] MEDS: guaiFENesin 600 MG TABLET.ER PO SCH ×2 (08:08→20:47)
[2020-10-01] MEDS: LORATADINE 10 MG TAB PO SCH (08:08)
[2020-10-01] MEDS: hydrALAZINE HCL 25 MG TAB PO SCH (08:08)
[2020-10-01] MEDS: SODIUM BICARBONATE TAB 650 MG TAB PO SCH (08:08)
[2020-10-01] MEDS: ATORVASTATIN 20 MG TAB PO SCH (08:08)
[2020-10-01] MEDS: LOSARTAN 25 MG TAB PO SCH (08:09)
[2020-10-01 09:09] LABS: Calcium 8.9 mg/dL (8.4-10.2); Potassium 4.7 mmol/L (3.5-5.1)
[2020-10-01] MEDS: SODIUM CHLORIDE 0.9% 1,000 ML IV SCH ×2 (12:09)
--- NOTE | 2020-10-01 12:12 | PN ---
PROGRESS NOTE Mrs. Green is an 85-year-old female who presented with symptoms of dizziness and fatigue, was found to have a significant bradycardia with pauses. Her beta horacio was stopped but she continued to have pauses in spite of that. She continues to feel tired with some dizziness but no syncope. She denies any chest pain. No palpitation. She continues to be on atorvastatin 20 mg daily, hydralazine 25 mg twice a day, losartan 25 mg daily. PHYSICAL EXAMINATION: Blood pressure running in the 150s and 140s with a heart rate in the 40s. LUNGS: Clear. HEART: Regular rate and rhythm S1, S2. No S3 with systolic murmur. No diastolic murmur. No rub. ABDOMEN: Soft, nontender. EXTREMITIES: No edema. LAB DATA: BUN and creatinine 43 and 1.5, potassium 4.7. IMPRESSION: 1. Bradycardia, off beta horacio with persistent pauses. 2. Hypertension. 3. Chronic kidney disease. RECOMMENDATION: I will stop her losartan, increase the dose of her hydralazine. I have discussed her case with Dr. Brittany Springer who is her primary utility spray operator and we will proceed with permanent pacemaker implantation tomorrow. I have discussed those findings and recommendation with the patient and she is in full understanding and agreement. MMODL / IJN: [id number] /
--- NOTE | 2020-10-01 14:02 | P.PN ---
Subjective Progress Note Date: 10/01/20 Principal diagnosis: fatigue Patient is an 85-year-old female history of prior GI bleed secondary to gastric ulcer, chronic diastolic congestive heart failure, chronic kidney disease stage III follow Dr. Max, COPD, and GERD who presented to the emergency department complaining of malaise, hypotension, metabolic bowel movement, and and generalized weakness. In the ER she underwent an extensive evaluation. Her hemoglobin was found to be stable at 11.9, fecal occult blood was negative. EKG showed sinus bradycardia. The remainder of her labs were near baseline. She started having worsening bradycardia. She ultimately required dobutamine drip. Cardiology was contacted and she was admitted to the ICU. Her metoprolol was held. Doubutamined gtt weaned on 09/25 but HR decreased to 20s necessitating restarting the dobutamine gtt. She was successfully taken off dobutamine on 09/26. She continued to do well. She had some bright red blood in her stools was evaluated by general surgery who recommended outpatient follow-up due to possible internal hemorrhoids, which have been present on her last 2 colonoscopies in 2015 and 2018. Hemoglobin was stable. Initially the plan was for discharge home but her blood pressure increased and she did not feel well. She was monitored again overnight and had 4.1 sec pauses and plan is currently for PPM 10/02 ECHO- ef 50-55%, moderate concentric LVH Patient seen and examined at bedside. Feeling well, no complaints, no nausea, no chest pain/ General: non toxic, no distress, appears at stated age Derm: warm, dry Head: atraumatic, normocephalic, symmetric Eyes: EOMI, no lid lag, anicteric sclera Mouth: no lip lesion, mucus membranes dry Cardiovascular: S1-S2 bradycardic, no murmur, positive posterior tibial pulse bilateral, Lungs: Decreased bs bilateral, no rhonchi, no rales , no accessory muscle use Abdominal: soft, nontender to palpation, no guarding, no appreciable organomegaly Ext: no gross muscle atrophy, no edema, no contractures Neuro: CN II-XI grossly intact, no focal neuro deficits Psych: Alert, oriented, appropriate affect Symptomatic bradycardia - Cardiology recommendations: + pacemaker likely in AM, off metoprolol - Telemetry - Echocardiogram with preserved EF Hematochezia - follow CBC - Surgery recs appreciated: Colonoscopy if continues to bleed - hx of internal hemorrhoids the last 2 colonoscopy 2015 and 2017 Elevated TSH - Free T4 and T 3 normal - recheck in 4-6 weeks as TSH is not greater than 10 and symptoms could be due to bradycardia Diabetes mellitus type 2 - diet controlled - SSI, follow bs HTN - controlled - metoprolol on hold due to bradycardia - losartan stopped and patient started on hydralazine HLD - statin Obesity with BMI 36.4 - outpatient structured weight loss Compensated diastolic CHF EF 55-60% - Metoprolol, cozaar on hold - not on chronic diuretics CKD III at baseline, chronic metabolic acidosis - baseline Cr 1.6 - Follow Cr - Avoid additional nephrotoxic agents - sodium bicarb DVT prophylaxis: SCDs Discussed with: Patient, nursing Anticipated discharge: in 1-[address]: home A total of 35 minutes was spent on the care of this complex patient more than 50% of the time was spent in counseling and care coordination. Objective - Vital Signs Vital signs: Vital Signs Temp 97.9 F 10/01/20 08:00 Pulse 46 L 10/01/20 11:30 Resp 18 10/01/20 11:27 BP 182/74 10/01/20 11:27 Pulse Ox 99 10/01/20 11:27 Intake & Output 09/30/20 10/01/20 10/01/20 18:59 06:59 18:59 Intake Total 240 360 Balance 240 360 Weight 85.3 kg Intake: Oral 240 360 Other: Voiding Method Toilet # Voids 1 # Bowel Movements 1 - Labs CBC & Chem 7: 09/29/20 08:08 10/01/20 07:56 Labs: Abnormal Lab Results - Last 24 Hours (Table) 10/01/20 Range/Units 07:56 BUN 43 H (7-17) mg/dL Creatinine 1.50 H (0.52-1.04) mg/dL Glucose 135 H (74-99) mg/dL
[2020-10-01] MEDS ORDERED: hydrALAZINE HCL 25 MG TAB PO STA (14:43)
[2020-10-01] MEDS ORDERED: LOSARTAN 25 MG TAB PO STA (18:47)
[2020-10-01] MEDS: hydrALAZINE HCL 50 MG TAB PO SCH (20:47)
[2020-10-02] MEDS: ATORVASTATIN 20 MG TAB PO SCH (06:21)
[2020-10-02] MEDS: LORATADINE 10 MG TAB PO SCH (06:21)
[2020-10-02] MEDS: guaiFENesin 600 MG TABLET.ER PO SCH ×2 (06:21→20:18)
[2020-10-02] MEDS: hydrALAZINE HCL 50 MG TAB PO SCH ×2 (06:21→20:18)
[2020-10-02] MEDS: SODIUM BICARBONATE TAB 650 MG TAB PO SCH (06:22)
[2020-10-02] MEDS: SODIUM CHLORIDE 0.9% 1,000 ML IV SCH ×3 (06:24)
--- NOTE | 2020-10-02 10:03 | P.PN ---
Subjective Progress Note Date: 10/02/20 Patient is doing fairly well today. No acute events overnight. She does not have any complaint. Objective - Vital Signs Vital signs: Vital Signs Temp 98.4 F 10/02/20 08:20 Pulse 65 10/02/20 08:20 Resp 16 10/02/20 08:20 BP 114/58 10/02/20 08:20 Pulse Ox 97 10/02/20 08:20 Intake & Output 10/01/20 10/02/20 10/02/20 18:59 06:59 18:59 Intake Total 600 0 Balance 600 0 Weight 85.3 kg Intake: Oral 600 0 Other: Voiding Method Toilet # Voids 1 - Exam General: The patient is awake and alert, in no distress Eye: there is normal conjunctiva bilaterally. Neck: The neck is supple, there is no JVD. Cardiovascular: Normal S1-S2, no S3-S4, no murmurs. Respiratory: Lungs clear to auscultation bilaterally Gastrointestinal: Abdomen is soft, nontender Musculoskeletal: There is no pedal edema. Neurological:. Speech is normal. Skin: Skin is warm and dry - Labs CBC & Chem 7: 09/29/20 08:08 10/01/20 07:56 Assessment and Plan Assessment: Patient is an 85-year-old female history of prior GI bleed secondary to gastric ulcer, chronic diastolic congestive heart failure, chronic kidney disease stage III follow Dr. Max, COPD, and GERD who presented to the emergency department complaining of malaise, hypotension, and generalized weakness. In the ER she underwent an extensive evaluation. Her hemoglobin was found to be stable at 11.9, fecal occult blood was negative. EKG showed sinus bradycardia. The remainder of her labs were near baseline. She started having worsening bradycardia. She ultimately required dobutamine drip. Cardiology was contacted and she was admitted to the ICU. Her metoprolol was held. She was successfully taken off dobutamine on 09/26. She continued to do well. She had some bright red blood in her stools was evaluated by general surgery who recommended outpatient follow-up due to possible internal hemorrhoids, which have been present on her last 2 colonoscopies in 2016 and 2018. Hemoglobin stable. Initially the plan was for discharge home but her blood pressure increased and she did not feel well. She was monitored again overnight and had 4.1 sec pauses and plan is for PPM 10/02 ECHO- ef 50-55%, moderate concentric LVH Symptomatic bradycardia - Cardiology recommendations: + pacemaker today, off metoprolol - Echocardiogram with preserved EF Hematochezia, resolved - hx of internal hemorrhoids the last 2 colonoscopy 2015 and 2018 - Surgery recs appreciated: Follow-up outpatient Elevated TSH - Free T4 and T 3 normal - recheck in 4-6 weeks as TSH is not greater than 10 and symptoms could be due to bradycardia Diabetes mellitus type 2 - diet controlled - SSI, follow bs HTN - controlled - metoprolol discontinue - losartan stopped and patient started on hydralazine HLD - statin Obesity with BMI 36.4 - outpatient structured weight loss Compensated diastolic CHF EF 55-60% - not on chronic diuretics CKD III at baseline, chronic metabolic acidosis - baseline Cr 1.6 - Avoid additional nephrotoxic agents DVT prophylaxis: SCDs Discussed with: Patient, nursing Anticipated discharge: in 1-[address]: home A total of 35 minutes was spent on the care of this complex patient more than 50% of the time was spent in counseling and care coordination.
[2020-10-02] MEDS ORDERED: ceFAZolin 1 GM in SODIUM CHLORIDE 0.9% 250 ML IRRIGATION PRN (11:00)
[2020-10-02 11:24] LABS: Calcium 9.3 mg/dL (8.4-10.2); Potassium 4.8 mmol/L (3.5-5.1)
[2020-10-02] MEDS ORDERED: IOPAMIDOL-250 50ML BTL IV ONE (12:00)
[2020-10-02] MEDS ORDERED: MIDAZOLAM 2 MG/2 ML VIAL IV ONE (12:05)
[2020-10-02] MEDS ORDERED: SODIUM CHLORIDE 0.9% 1,000 ML IV ONE (12:05)
[2020-10-02] MEDS ORDERED: LIDOCAINE 1% INJ 10MG/ML (20 ML MDV) SQ ONE ×2 (12:16→12:25)
[2020-10-02] MEDS ORDERED: LIDOCAINE 1% INJ 10MG/ML (20 ML MDV) ONE (12:27)
--- NOTE | 2020-10-02 15:52 | XR ---
EXAMINATION TYPE: XR chest 1V portable DATE OF EXAM: 10/02/2020 Comparison: 09/26/2020 Clinical History: 85-year-old female Lead placement check Findings: Left anterior chest wall pacemaker generator with right atrial and right ventricular leads. Heart nor mal size. Mild interstitial prominence of the chronic appearance. No consolidation, pneumothorax, or pleural effusion. Right shoulder arthroplasty. Loss of the subacromial space on the right compatible with full-thickness rotator cuff tear. Degenerative changes of the left shoulder. Impression: Placement of left-sided pacemaker generator with 2 leads. No acute process seen.
--- NOTE | 2020-10-02 18:34 | PCN ---
PROCEDURE NOTE DATE OF SERVICE: October 02, 2020. PROCEDURE PERFORMED: Permanent dual-chamber pacemaker from left infraclavicular approach. PERFORMED BY: Dr. Brittany Springer. SEDATION: Moderate conscious sedation time was 90 minutes. Patient was administered Versed. Oxygen saturation, hemodynamics and EKG were monitored closely. CLINICAL INFORMATION: Mrs. Troy Green is an 85-year-old lady with symptoms of dizziness, lightheadedness, shortness of breath and documented bradycardia and significant pauses. In view of her symptomatic bradycardia, she was advised a dual-chamber pacemaker after prolonged observation in the hospital after discontinuing her beta blockers. The risks, benefits, options, rationale were discussed with the patient. She understood all details and wished to proceed with the procedure. PROCEDURE NOTE: Under strict aseptic precautions and local anesthesia from the left infraclavicular approach under fluoroscopic guidance, two access points were obtained using a micropuncture needle technique. Axillary vein was cannulated with 2 separate punctures under fluoroscopic guidance and 2 guidewires was left in the inferior vena cava. Subsequently a 3.5 inch incision was made medial and parallel to the left deltopectoral groove and a subfacial pocket was made using a combination of cautery and scalpel dissection. Excellent hemostasis was secured. Over this guidewire, a 6-Yoruba introducer was advanced and positioned. Through each introducer, a ventricular lead and then atrial leads were positioned under fluoroscopic guidance. The ventricular lead was placed in the right ventricular apex. A good sensitivities and threshold was obtained. Atrial lead was positioned in the right atrium. A very good position was achieved with good sensitivities and thresholds. Both these leads were separately secured to the underlying muscle with 0 silk suture. Each of the leads were checked with a 10 V pacing and again viewed in both GUYANESE and THORPE projections. The pocket was then irrigated with antibiotic solution and also a sponge was left in the pocket for nearly 30 minutes drenched with antibiotic solution. The pacemaker leads were then connected to the pulse generator and the pulse generator was also sutured to the underlying muscle in the line of the incision. The wound was closed in 2 layers with 2.0 Vicryl and then a 3.0 Vicryl. Excellent hemostasis was secured. The patient tolerated the procedure well. She was then sent for a chest x-ray. At the beginning of the procedure, antibiotic was infused during the time of the incision. She will be discharged tomorrow if she remains stable after checking the device and checking a repeat chest x-ray. Pacemaker device details: Sleeping Bag Filler- [employer] model Assurity MRI 2272, serial #[id number], atrial lead support engineer [employer] model tendril [id number], serial number [id number], right ventricular lead support engineer [employer] medical model [id number], serial number [id number], atrial threshold was 0.75 V at 0.4 milliseconds. P wave was 1.4 mV and lead impedance was 550 ohms. The ventricular threshold was 0.375 V at 0.4 milliseconds. R-waves are 4.2 mV. Lead impedance was 980 ohms. The pacemaker was set at a low rate of 50, high rate of 110 in a DDD mode. Paced delay was 275 milliseconds and sensed delay was 250 milliseconds. The patient tolerated the procedure well without complication. MMODL / IJN: [id number] / [id number]
[2020-10-02] MEDS: ACETAMINOPHEN TAB 325 MG TAB PO PRN (20:18)
[2020-10-02] MEDS: HEPARIN SODIUM,PORCINE/PF 5,000 UNIT/0.5 ML SYRINGE SQ SCH (20:19)
[2020-10-02] MEDS: methocarbamoL 500 MG TAB PO PRN (23:58)
[2020-10-03] MEDS: SODIUM CHLORIDE 0.9% 1,000 ML IV SCH ×2 (02:43)
[2020-10-03 04:17] VITALS: RESP 18
--- NOTE | 2020-10-03 08:28 | XR ---
EXAMINATION TYPE: XR chest 2V DATE OF EXAM: 10/03/2020 COMPARISON: 10/02/2020 INDICATION: Lead placement check TECHNIQUE: Single frontal view of the chest is obtained. FINDINGS: The heart size is normal. The pulmonary vasculature is normal. The lungs are clear. Pacemaker overlies the chest. IMPRESSION: 1. No acute pulmonary process.
[2020-10-03] MEDS ORDERED: ASPIRIN 81 MG PO SCH (09:00)
[2020-10-03] MEDS: SODIUM BICARBONATE TAB 650 MG TAB PO SCH (09:17)
[2020-10-03] MEDS: guaiFENesin 600 MG TABLET.ER PO SCH (09:17)
[2020-10-03] MEDS: hydrALAZINE HCL 50 MG TAB PO SCH (09:17)
[2020-10-03] MEDS: HEPARIN SODIUM,PORCINE/PF 5,000 UNIT/0.5 ML SYRINGE SQ SCH (09:17)
[2020-10-03] MEDS: LORATADINE 10 MG TAB PO SCH (09:17)
[2020-10-03] MEDS: ATORVASTATIN 20 MG TAB PO SCH (09:18)
[2020-10-03 09:26] VITALS: BP 173/71; PULSE 52; TEMP 98.3
--- NOTE | 2020-10-03 10:52 | P.PN ---
Subjective Progress Note Date: 10/03/20 HISTORY OF PRESENT ILLNESS: Patient examined this morning at the bedside. Patient denies dizziness or lightheadedness. She denies chest pain or pressure. She denies shortness of br eath. Blood pressure this morning 167/90. She has been resumed on her Cozaar per medicine. Telemetry reveals sinus mechanism with heart rate in the 60s. She has had some occasional 2 second pauses while sleeping. Echocardiogram performed revealed ejection fraction 50-55%. 09/29/2020 Patient examined this morning at the bedside. Patient denies chest pain or pressure. Denies shortness of breath. Patient had some pauses overnight ranging from 2-4 seconds. Patient states she does not know if she has a history of sleep apnea and has never had a sleep study before. She denies any dizziness or li ghtheadedness. Creatinine 1.49. 10/03/2020 Patient is status post dual-chamber pacemaker insertion with Dr. Springer. Postop day #1. Postoperative chest x-ray completed with no pneumothorax. Device was interrogated by device rep this morning. Patient's blood pressure remains elevated this morning with a reading of 173/71. Heart rate in the 60s. Patient is on room air with oxygen saturations greater than 92%. She is afebrile. She reports mild discomfort at the site of pacemaker insertion. PHYSICAL EXAM: VITAL SIGNS: Reviewed. GENERAL: Well-developed in no acute distress. NECK: Supple. No JVD or thyromegaly LUNGS: Respirations even and unlabored. Lungs essentially clear to auscultation bilaterally. HEART: Regular rate and rhythm. S1 and S2 heard. Systolic murmur noted. Dressing to left chest clean dry intact EXTREMITIES: Normal range of motion. No clubbing or cyanosis. Peripheral pulses intact. No lower extremity edema. ASSESSMENT: Sinus bradycardia with sinus pauses, status post dual-chamber pacemaker insertion Hypertension Chronic kidney disease Diabetes mellitus Hyperlipidemia Mild aortic stenosis PLAN: Increase hydralazine to 75 mg 3 times a day for optimal blood pressure control Patient may be discharged home this afternoon after she finishes her antibiotic regimen Patient to follow up outpatient with Dr. Springer Nurse practitioner note has been reviewed by physician. Signing provider agrees with the documented findings, assessment, and plan of care. Objective - Vital Signs Vital signs: Vital Signs Temp 98.3 F 10/03/20 09:15 Pulse 52 L 06/08/21 09:15 Resp 18 10/03/20 09:15 BP 173/71 10/03/20 09:15 Pulse Ox 97 10/03/20 09:15 Intake & Output 10/02/20 10/03/20 10/03/20 18:59 06:59 18:59 Intake Total 490 100 Balance 490 100 Weight 85.2 kg Intake: IV 250 Intake, IV Titration 100 Amount ceFAZolin 2 gm In Sodium 100 Chloride 0.9% 50 ml @ 100 mls/hr IVPB ONCE PRN Rx# :[id number] Oral 240 Other: Voiding Method Toilet Toilet # Voids 2 1 - Labs CBC & Chem 7: 09/29/20 08:08 10/02/20 10:09 Labs: Abnormal Lab Results - Last 24 Hours (Table) 10/02/20 Range/Units 10:09 BUN 41 H (7-17) mg/dL Creatinine 1.37 H (0.52-1.04) mg/dL Glucose 113 H (74-99) mg/dL
--- NOTE | 2020-10-03 10:57 | P.DS ---
Providers Date of admission: 09/24/20 15:45 Expected date of discharge: 10/03/20 Attending physician: Julita Campos DO Consults: 09/24/20 15:54 Consult Physician Routine Consulting Provider: [facility] Consult Reason/Comments: [place], pacemaker likely Do you want consulting provider notified?: Already Contacted 09/24/20 20:23 Consult Physician Routine Consulting Provider: Melva French Consult Reason/Comments: icu admission for dopamin drip Do you want consulting provider notified?: Already Contacted 09/27/20 08:18 Consult Physician Routine Consulting Provider: James Sales Consult Reason/Comments: rectal bleeding/hemorrhoids Do you want consulting provider notified?: Yes Primary care physician: Aaron Story Hospital Course: Patient is an 85-year-old female history of prior GI bleed secondary to gastric ulcer, chronic diastolic congestive heart failure, chronic kidney disease stage III [address] Dr. Max, COPD, and GERD who presented to the emergency department complaining of malaise, hypotension, and generalized weakness. In the ER she underwent an extensive evaluation. Her hemoglobin was found to be stable at 11.9, fecal occult blood was negative. EKG showed sinus bradycardia. The remainder of her labs were near baseline. She started having worsening bradycardia. She ultimately required dobutamine drip. Cardiology was contacted and she was admitted to the ICU. Her metoprolol was held. She was successfully taken off dobutamine on 09/26. She continued to do well. She had some bright red blood in her stools was evaluated by general surgery who recommended outpatient follow-up due to possible internal hemorrhoids, which have been present on her last 2 colonoscopies in 2015 and 2017. Hemoglobin stable. Initially the plan was for discharge home but her blood pressure increased and she did not feel well. She was monitored again overnight and had 4.1 sec pauses and plan is for PPM 10/02 ECHO- ef 50-55%, moderate concentric LVH Symptomatic bradycardia - Status post pacemaker implantation on 10/02. off metoprolol - Echocardiogram with preserved EF Hematochezia, resolved - hx of internal hemorrhoids the last 2 colonoscopy 2015 and 2018 - Surgery recs appreciated: Follow-up outpatient Elevated TSH - Free T4 and T 3 normal - recheck in 4-6 weeks as TSH is not greater than 10 and symptoms could be due to bradycardia Diabetes mellitus type 2 - diet controlled HTN - controlled - metoprolol discontinued - losartan stopped and patient started on hydralazine HLD - statin Obesity with BMI 36.4 - outpatient structured weight loss Compensated diastolic CHF EF 55-60% - not on chronic diuretics CKD III at baseline, chronic metabolic acidosis - baseline Cr 1.6 - Avoid additional nephrotoxic agents Patient will be discharged home in a stable condition. She will follow-up with her biomedical repair technician and PCP as directed Patient Condition at Discharge: Stable Plan - Discharge Summary Discharge Rx Participant: No New Discharge Prescriptions: New hydrALAZINE HCL [Apresoline] 75 mg PO TID #270 tab Continue Atorvastatin [Lipitor] 20 mg PO DAILY Aspirin 81 mg PO DAILY chew methocarbamoL [Robaxin] 500 mg PO TID PRN PRN Reason: Muscle Spasm Sodium Bicarbonate Tab 650 mg PO DAILY Discontinued Losartan [Cozaar] 50 mg PO HS #30 tab Metoprolol Tartrate [Lopressor] 25 mg PO BID #60 tab Discharge Medication List Atorvastatin [Lipitor] 20 mg PO DAILY 01/19/16 [History] Aspirin 81 mg PO DAILY chew 05/08/19 [Rx] Sodium Bicarbonate Tab 650 mg PO DAILY 09/24/20 [History] methocarbamoL [Robaxin] 500 mg PO TID PRN 09/24/20 [History] hydrALAZINE HCL [Apresoline] 75 mg PO TID #270 tab 10/03/20 [Rx] Follow up Appointment(s)/Referral(s): James Sales MD [Medical Doctor] - 1 Week [facility], [NON-STAFF] - 1-2 Days Nadine Springer MD [STAFF PHYSICIAN] - 2 Weeks Aaron Story MD [Primary Care Provider] - 1-2 Days (This will be a new patient appointment and a hospital follow up appointment. ) Activity/Diet/Wound Care/Special Instructions: Activity: as tolerated Diet: heart health Special Instructions: Change losartan to daily instead of at night Discharge Disposition: HOME SELF-CARE
[2020-10-03] MEDS: ACETAMINOPHEN TAB 325 MG TAB PO PRN (12:31)
[2020-10-03] MEDS: methocarbamoL 500 MG TAB PO PRN (13:00)
[2020-10-03] MEDS ORDERED: hydrALAZINE HCL 25 MG TAB PO SCH (16:00)
== END 2020-10-03 15:00 | disposition home health service (06) | DRG 243 ==
LOC: EC 13:51 → 3SCARD 15:45 → 2SICU 21:10 → 3SCARD 09-27 13:50
PROVIDERS: ADMIT Internal Medicine; ATTEND Internal Medicine
PROC: 0JH606Z Insertion of Pacemaker, Dual Chamber into Chest Subcutaneous Tissue and Fascia, Open Approach (ICD-10-PCS; principal; 2020-10-02 09:00)
PROC: 02H63JZ Insertion of Pacemaker Lead into Right Atrium, Percutaneous Approach (ICD-10-PCS; principal; 2020-10-02 09:00)
PROC: 02HK3JZ Insertion of Pacemaker Lead into Right Ventricle, Percutaneous Approach (ICD-10-PCS; principal; 2020-10-02 09:00)
DX: I44.2 Atrioventricular block, complete (principal); I13.0 Hypertensive heart and chronic kidney disease with heart failure and stage 1 through stage 4 chronic kidney disease, or unspecified chronic kidney disease; E87.2 Acidosis; I50.32 Chronic diastolic (congestive) heart failure; N17.9 Acute kidney failure, unspecified; E11.22 Type 2 diabetes mellitus with diabetic chronic kidney disease; I95.9 Hypotension, unspecified; E11.40 Type 2 diabetes mellitus with diabetic neuropathy, unspecified; J44.9 Chronic obstructive pulmonary disease, unspecified; N18.30 Chronic kidney disease, stage 3 unspecified; R00.1 Bradycardia, unspecified; Z20.822 Contact with and (suspected) exposure to COVID-19; I08.3 Combined rheumatic disorders of mitral, aortic and tricuspid valves; E78.5 Hyperlipidemia, unspecified; K21.9 Gastro-esophageal reflux disease without esophagitis; K64.8 Other hemorrhoids; I25.10 Atherosclerotic heart disease of native coronary artery without angina pectoris; M19.90 Unspecified osteoarthritis, unspecified site; E66.9 Obesity, unspecified; Z68.36 Body mass index [BMI] 36.0-36.9, adult; Z79.82 Long term (current) use of aspirin; Z79.899 Other long term (current) drug therapy; Z95.828 Presence of other vascular implants and grafts; Z96.652 Presence of left artificial knee joint; Z98.42 Cataract extraction status, left eye; Z98.41 Cataract extraction status, right eye; Z96.1 Presence of intraocular lens; Z90.710 Acquired absence of both cervix and uterus; Z87.42 Personal history of other diseases of the female genital tract; Z87.891 Personal history of nicotine dependence; Z87.11 Personal history of peptic ulcer disease; Z86.718 Personal history of other venous thrombosis and embolism; Z86.2 Personal history of diseases of the blood and blood-forming organs and certain disorders involving the immune mechanism; Z86.010 Personal history of colon polyps; Z90.89 Acquired absence of other organs; Z87.19 Personal history of other diseases of the digestive system; Z90.49 Acquired absence of other specified parts of digestive tract; Z87.39 Personal history of other diseases of the musculoskeletal system and connective tissue; Z86.69 Personal history of other diseases of the nervous system and sense organs; Z98.890 Other specified postprocedural states; Z82.5 Family history of asthma and other chronic lower respiratory diseases; Z82.0 Family history of epilepsy and other diseases of the nervous system; Z80.42 Family history of malignant neoplasm of prostate
CPT/HCPCS: 33208; 36415; 71045; 71046; 76770; 80048; 80053; 81001; 82272; 83036; 83735; 83880; 84132; 84439; 84443; 84481; 84484; 85025; 85027; 85610; 85730; 86850; 86900; 86901; 87635; 93005; 93306; 94640; 96374; 99285

== ENCOUNTER 2020-10-06 12:44 | Inpatient (IN) | payer MEDICARE ==
[2020-10-06] MEDS ORDERED: LORazepam 2 MG/ML INJ IV STA ×2 (13:39→14:30)
--- NOTE | 2020-10-06 13:49 | ED ---
General Adult HPI - General Source: patient, family, EMS, RN notes reviewed Mode of arrival: EMS Limitations: no limitations <Shane Baig - Last Filed: 10/06/20 14:30> <Cralos Alberto Gomez - Last Filed: 10/06/20 16:53> - General Chief complaint: Arrhythmia/Palpitations Stated complaint: Palpitation Time Seen by Provider: 10/06/20 12:50 - History of Present Illness Initial comments: Patient is a pleasant 85-year-old female presenting to the emergency department with palpitations. Patient states she feels thumping in her chest and upper back ever since she had the pacemaker placed 4 days ago. Patient states she is also developed tremors. Patient states she is able to somewhat controlled him with deep concentration. No isolated area of weakness. No history of similar symptoms previously. No isolated area of weakness or confusion. Patient states she did have an episode over a month ago where she had some expressive aphasia that had resolved by the next day. (Shane Baig) Patient care was sent out to me by previous shift physician. Briefly, patient is a 85-year-old female recently had a procedure for pacemaker placement. Presents today with tremors, feelings of palpitations. Patient also allegedly had some aphasic symptoms several days ago. Plan cyanosis or follow-up with pending imaging studies. Labs were reviewed. CBC, coag panel, are within acceptable limits. Renal markers are slightly elevated however patient has history of elevated renal markers. Chest x-ray shows small bilateral pleural effusions suggesting possible mild central venous congestion if correlated clinically. (Carlos Alberto Gomez) - Related Data Home Medications Medication Instructions Recorded Confirmed Atorvastatin [Lipitor] 20 mg PO DAILY 01/19/16 10/06/20 Sodium Bicarbonate Tab 650 mg PO DAILY 09/24/20 10/06/20 methocarbamoL [Robaxin] 500 mg PO TID PRN 09/24/20 10/06/20 Previous Rx's Medication Instructions Recorded hydrALAZINE HCL [Apresoline] 75 mg PO TID #270 tab 10/03/20 Allergies Allergy/AdvReac Type Severity Reaction Status Date / Time No Known Allergies Allergy Verified 10/06/20 14:06 Review of Systems ROS Other: All systems not noted in ROS Statement are negative. Constitutional: Denies: fever Eyes: Denies: eye pain ENT: Denies: ear pain Respiratory: Denies: cough, dyspnea Cardiovascular: Reports: palpitations Endocrine: Denies: fatigue Gastrointestinal: Denies: abdominal pain Genitourinary: Denies: dysuria Musculoskeletal: Denies: back pain Skin: Denies: rash Neurological: Reports: as per HPI. Denies: headache, weakness, confusion <BaigShane - Last Filed: 10/06/20 14:30> ROS Other: All systems not noted in ROS Statement are negative. <Carlos Alberto Gomez - Last Filed: 10/06/20 16:53> ROS Statement: Those systems with pertinent positive or pertinent negative responses have been documented in the HPI. Past Medical History Past Medical History: Heart Failure, COPD, Diabetes Mellitus, Deep Vein Thrombosis (DVT), GERD/Reflux, GI Bleed, Hyperlipidemia, Hypertension, Osteoarthritis (OA), Renal Disease Additional Past Medical History / Comment(s): NIDDM type II-diet controlled, past neuropathy bilateral feet, decreased renal function, cardiac murmur, hypokalemia, L leg DVT, hemorrhoids, benign colon polyps, hemorrhoids, anemia, lower GI bleed, gastric ulcer. History of Any Multi-Drug Resistant Organisms: None Reported Past Surgical History: Adenoidectomy, Appendectomy, Cholecystectomy, Heart Catheterization, Hysterectomy, Joint Replacement, Pacemaker, Tonsillectomy Additional Past Surgical History / Comment(s): IVC filter, L leg skin tear with surgical repair, total hysterectomy, L knee arthroscopy, total L knee arthroplasty, R shoulder rotator cuff repair with pin, bilateral cataract removals/lens implants, bilateral blepharoplasties, EGD, colonoscopies/benign polypectomy. Past Anesthesia/Blood Transfusion Reactions: No Reported Reaction Additional Past Anesthesia/Blood Transfusion Reaction / Comment(s): CLAUSTROPHOBIA Past Psychological History: Anxiety Smoking Status: Former smoker Past Alcohol Use History: None Reported Past Drug Use History: Marijuana - Past Family History Father Family Medical History: Cancer Additional Family Medical History / Comment(s): Father had prostate cancer with mets. He at the age of 74 yrs. Sister(s) Family Medical History: Cancer Mother Family Medical History: COPD Additional Family Medical History / Comment(s): Mother at the age of 86yrs. Brother(s) Family Medical History: Musculoskeletal Disorder, Neurologic Disorder Additional Family Medical History / Comment(s): Brother of parkinson's disease. <Shane Baig - Last Filed: 10/06/20 14:30> General Exam Limitations: no limitations General appearance: alert, in no apparent distress Head exam: Present: normocephalic Eye exam: Present: normal appearance, PERRL, EOMI Neck exam: Present: normal inspection Respiratory exam: Present: normal lung sounds bilaterally Cardiovascular Exam: Present: regular rate, normal heart sounds GI/Abdominal exam: Present: soft. Absent: tenderness Extremities exam: Present: normal inspection. Absent: pedal edema, calf tenderness Neurological exam: Present: alert, oriented X3, CN II-XII intact. Absent: motor sensory deficit Psychiatric exam: Present: normal affect, normal mood Skin exam: Present: normal color <Shane Baig - Last Filed: 10/06/20 14:30> Course <Shane Baig - Last Filed: 10/06/20 14:30> Vital Signs 10/06/20 12:47 Temperature 97.6 F Pulse Rate 80 Respiratory 18 Rate Blood Pressure 156/92 O2 Sat by Pulse 96 Oximetry - Reevaluation(s) Reevaluation #1: 10/06/20 13:46 Patient adds she is changing primary care physicians and Dr. Story is now her primary care physician P 10/06/20 14:30 Patient states discharge have improved however not resolved with lorazepam. Patient is receptive to another 0.5 dose. (Shane Baig) EKG Findings - EKG Comments: EKG Findings:: A. fib with rate of 66. Paced rhythm. QRS 146. QT 470. QTc 492. Normal axis. Left bundle branch block. Nonspecific ST-T. 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 Patient reevaluated at bedside at 4:45 PM. She is in stable medical condition. She d enies any history of headaches. She reports that she feels well especially after given the Xanax. Considering patient is having symptoms and is 4 days postop from pacer placement we'll have patient be observation for cardiac monitoring cardiology consultation. Patient is not having any intracranial symptoms. At bedside she is not having focal neurologic deficits. She does have poor kidney function. No obvious indication for CT angios the head and neck at this time to evaluate possible aneurysm given that patient not good candidate for contrast and is not having any neurologic symptoms. We'll have neurology consulted regarding this. Considering her thoracic symptoms will have cartilage consulted. Patient will be medically monitored observation. Patient and family members are agreeable with disposition. (Carlos Alberto Gomez) - Lab Data Lab Results 10/06/20 10/06/20 10/06/20 Range/Units 13:41 13:41 13:41 WBC 9.7 (3.8-10.6) k/uL RBC 3.73 L (3.80-5.40) m/uL Hgb 11.1 L (11.4-16.0) gm/dL Hct 34.8 (34.0-46.0) % MCV 93.4 (80.0-100.0) fL MCH 29.7 (25.0-35.0) pg MCHC 31.8 (31.0-37.0) g/dL RDW 14.7 (11.5-15.5) % Plt Count 211 (150-450) k/uL MPV 7.8 Neutrophils % 74 % Lymphocytes % 17 % Monocytes % 5 % Eosinophils % 1 % Basophils % 1 % Neutrophils # 7.2 (1.3-7.7) k/uL Lymphocytes # 1.7 (1.0-4.8) k/uL Monocytes # 0.5 (0-1.0) k/uL Eosinophils # 0.1 (0-0.7) k/uL Basophils # 0.0 (0-0.2) k/uL PT 9.6 (9.0-12.0) sec INR 0.9 (<1.2) APTT 21.0 L (22.0-30.0) sec Sodium 139 (137-145) mmol/L Potassium 4.5 (3.5-5.1) mmol/L Chloride 108 H (98-107) mmol/L Carbon Dioxide 22 (22-30) mmol/L Anion Gap 9 mmol/L BUN 40 H (7-17) mg/dL Creatinine 1.82 H (0.52-1.04) mg/dL Est GFR (CKD-EPI)AfAm 29 (>60 ml/min/1.73 sqM) Est GFR (CKD-EPI)NonAf 25 (>60 ml/min/1.73 sqM) Glucose 145 H (74-99) mg/dL Calcium 9.4 (8.4-10.2) mg/dL Magnesium 1.9 (1.6-2.3) mg/dL Total Bilirubin 0.4 (0.2-1.3) mg/dL AST 27 (14-36) U/L ALT 8 (4-34) U/L Alkaline Phosphatase 91 (38-126) U/L Creatine Kinase 72 (30-135) U/L Troponin I (0.000-0.034) ng/mL Total Protein 6.4 (6.3-8.2) g/dL Albumin 4.1 (3.5-5.0) g/dL TSH 3.790 (0.465-4.680) mIU/L Free T4 1.17 (0.78-2.19) ng/dL Free T3 pg/mL 2.9 (2.8-5.3) pg/ml 10/06/20 Range/Units 13:41 WBC (3.8-10.6) k/uL RBC (3.80-5.40) m/uL Hgb (11.4-16.0) gm/dL Hct (34.0-46.0) % MCV (80.0-100.0) fL MCH (25.0-35.0) pg MCHC (31.0-37.0) g/dL RDW (11.5-15.5) % Plt Count (150-450) k/uL MPV Neutrophils % % Lymphocytes % % Monocytes % % Eosinophils % % Basophils % % Neutrophils # (1.3-7.7) k/uL Lymphocytes # (1.0-4.8) k/uL Monocytes # (0-1.0) k/uL Eosinophils # (0-0.7) k/uL Basophils # (0-0.2) k/uL PT (9.0-12.0) sec INR (<1.2) APTT (22.0-30.0) sec Sodium (137-145) mmol/L Potassium (3.5-5.1) mmol/L Chloride (98-107) mmol/L Carbon Dioxide (22-30) mmol/L Anion Gap mmol/L BUN (7-17) mg/dL Creatinine (0.52-1.04) mg/dL Est GFR (CKD-EPI)AfAm (>60 ml/min/1.73 sqM) Est GFR (CKD-EPI)NonAf (>60 ml/min/1.73 sqM) Glucose (74-99) mg/dL Calcium (8.4-10.2) mg/dL Magnesium (1.6-2.3) mg/dL Total Bilirubin (0.2-1.3) mg/dL AST (14-36) U/L ALT (4-34) U/L Alkaline Phosphatase (38-126) U/L Creatine Kinase (30-135) U/L Troponin I 0.026 (0.000-0.034) ng/mL Total Protein (6.3-8.2) g/dL Albumin (3.5-5.0) g/dL TSH (0.465-4.680) mIU/L Free T4 (0.78-2.19) ng/dL Free T3 pg/mL (2.8-5.3) pg/ml Disposition <Shane Baig - Last Filed: 10/06/20 14:30> <Carlos Alberto Gomez - Last Filed: 10/06/20 16:53> Clinical Impression: Palpitations, Chest pain Disposition: ADMITTED IP TO THIS [facility] Condition: Fair Referrals: Aaron Story MD [Primary Care Provider] - 1-2 days
[2020-10-06 13:52] LABS: Basophils % (A) 1 %; Eosinophils # (A) 0.1 k/uL (0-0.7); Eosinophils % (A) 1 %; HCT 34.8 % (34.0-46.0); HGB 11.1 gm/dL (11.4-16.0); Lymphocytes # (A) 1.7 k/uL (1.0-4.8); Lymphocytes % (A) 17 %; MCH 29.7 pg (25.0-35.0); MCHC 31.8 g/dL (31.0-37.0); MCV 93.4 fL (80.0-100.0); Mean Platelet Volume 7.8; Monocytes # (A) 0.5 k/uL (0-1.0); Monocytes % (A) 5 %; Neutrophils # (A) 7.2 k/uL (1.3-7.7); Neutrophils % (A) 74 %; Platelet Count 211 k/uL (150-450); RBC 3.73 m/uL (3.80-5.40); RDW 14.7 % (11.5-15.5); WBC 9.7 k/uL (3.8-10.6)
[2020-10-06 14:09] LABS: Albumin 4.1 g/dL (3.5-5.0); Calcium 9.4 mg/dL (8.4-10.2); Magnesium 1.9 mg/dL (1.6-2.3); Potassium 4.5 mmol/L (3.5-5.1); Total Bilirubin 0.4 mg/dL (0.2-1.3); Total Protein 6.4 g/dL (6.3-8.2)
[2020-10-06 14:17] LABS: INR 0.9 (<1.2); Prothrombin Time 9.6 sec (9.0-12.0)
[2020-10-06 14:25] LABS: T4, Free (Free Thyroxine) 1.17 ng/dL (0.78-2.19)
--- NOTE | 2020-10-06 14:26 | XR ---
EXAMINATION TYPE: XR chest 2V DATE OF EXAM: 10/06/2020 COMPARISON: 10/03/2020 TECHNIQUE: PA and lateral views submitted. HISTORY: Pacemaker insertion FINDINGS: Postsurgical change right shoulder with diffuse osteopenia and arthropathy of the shoulders. Cardiac device seen. No pneumothorax. Heart size normal. Stable coarsened interstitium. Atherosclerotic amadro e aorta. Small bilateral effusions. IMPRESSION: 1. Small bilateral pleural effusions correlate for mild central venous congestion.
[2020-10-06] MEDS ORDERED: SODIUM CHLORIDE 0.9% 500 ML 500 ML IV STA (15:15)
--- NOTE | 2020-10-06 16:03 | CT ---
EXAMINATION TYPE: CT brain wo con DATE OF EXAM: 10/06/2020 COMPARISON: None HISTORY: 85-year-old female Tremor. Pacemaker put in 4 days ago, headache. TECHNIQUE: Examination was done in axial plane without intravenous contrast. Coronal and sagittal r econstructions performed. CT DLP: 1096.4 mGycm Automated exposure control for dose reduction was used. FINDINGS: There is no evidence of acute intracranial hemorrhage, acute ischemic changes, mass, mass-effect, or extra-axial fluid collection. There is no effacement of cerebral sulci or basal subarachnoid cister ns. There is no hydrocephalus. There is no midline shift. Olivarez-white matter distinction is preserv ed. Bulbous appearance to the distal aspect of the basilar artery at 6.5 mm, refer to axial image 34 and coronal image 30. Benign basal ganglionic calcifications. Trace mucosal thickening ethmoid air cells. Mastoid air cells well pneumatized. Orbits and globes are intact. 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 CTA [place] of [place] could further evaluate. Otherwise, n o acute intracranial abnormality seen.
[2020-10-06] MEDS ORDERED: NALOXONE 0.4 MG/ML 1 ML VIAL IV PRN (16:47)
[2020-10-06] MEDS: SODIUM CHLORIDE 0.9% 1,000 ML IV SCH (19:36)
[2020-10-06] MEDS ORDERED: methocarbamoL 500 MG TAB PO PRN (20:45)
[2020-10-06] MEDS ORDERED: ALPRAZolam 0.25 MG TAB PO PRN (20:50)
[2020-10-06] MEDS: ACETAMINOPHEN TAB 325 MG TAB PO PRN (21:05)
[2020-10-06] MEDS: hydrALAZINE HCL 25 MG TAB PO SCH (21:05)
[2020-10-06] MEDS: HEPARIN SODIUM,PORCINE/PF 5,000 UNIT/0.5 ML SYRINGE SQ SCH (21:45)
[2020-10-07 06:25] LABS: Appearance,Urine Cloudy (Clear); Bacteria,Urine Occasional /hpf; Bilirubin,Urine Negative (Negative); Blood,Urine Negative (Negative); Color,Urine Yellow; Glucose,Urine (UA) Negative (Negative); Hyaline Casts,Urine 3 /lpf (0-2); Ketones,Urine Negative (Negative); Leukocyte Esterase,Urine Moderate (Negative); Mucus,Urine Rare /hpf; Nitrite,Urine Negative (Negative); Protein,Urine Trace (Negative); RBC,Urine 4 /hpf (0-5); Specific Gravity,Urine 1.022 (1.001-1.035); Squamous Epithelial Cell,Urine 2 /hpf (0-4); Urobilinogen,Urine <2.0 mg/dL (<2.0); WBC,Urine 58 /hpf (0-5)
[2020-10-07] MEDS: ATORVASTATIN 20 MG TAB PO SCH (08:18)
[2020-10-07] MEDS: SODIUM BICARBONATE TAB 650 MG TAB PO SCH (08:18)
[2020-10-07] MEDS: ACETAMINOPHEN TAB 325 MG TAB PO PRN ×2 (08:18→23:49)
[2020-10-07] MEDS: hydrALAZINE HCL 25 MG TAB PO SCH ×3 (08:18→20:13)
--- NOTE | 2020-10-07 08:51 | P.CRDCN ---
History of Present Illness Consult date: 10/07/20 Chief complaint: Palpitation History of present illness: This is a pleasant 85-year-old female patient with a past medical history significant for permanent pacemaker implantation was performed a few days ago as well as hypertension who presented to the emergency department complaining of palpitation. She stated "I just don't feel good". No symptoms of chest pain or chest discomfort and no shortness of breath and no dizziness or lightheadedness and no presyncope or syncope. She felt her heart was racing. The patient was admitted to the hospital a few weeks ago with symptomatic bradycardia and she received dual chamber pacemaker. The EKG today showed sinus rhythm with dual- chamber pacing. The blood pressure was elevated and continues to be elevated with a systolic blood pressure above 200 mmHg. The patient was at home on hydralazine 75 mg by mouth 3 times a day which was continued. I'm going to add Norvasc to the current medical regimen. Her kidney function is a slightly abnormal but she is known to have chronic kidney disease and the creatinine is the same as her baseline. The chest x-ray showed small bilateral perfusion only. No NT proBNP was checked. The patient overall does not look in any overt congestive heart failure. Echocardiogram from September revealed normal left ventricular systolic function was mild aortic stenosis but without any significant valvular abnormalities. Past Medical History Past Medical History: Heart Failure, COPD, Diabetes Mellitus, Deep Vein Th rombosis (DVT), GERD/Reflux, GI Bleed, Hyperlipidemia, Hypertension, Osteoarthritis (OA), Renal Disease Additional Past Medical History / Comment(s): NIDDM type II-diet controlled, past neuropathy bilateral feet, decreased renal function, cardiac murmur, hypokalemia, L leg DVT, hemorrhoids, benign colon polyps, hemorrhoids, anemia, lower GI bleed, gastric ulcer. History of Any Multi-Drug Resistant Organisms: None Reported Past Surgical History: Adenoidectomy, Appendectomy, Cholecystectomy, Heart Catheterization, Hysterectomy, Joint Replacement, Pacemaker, Tonsillectomy Additional Past Surgical History / Comment(s): IVC filter, L leg skin tear with surgical repair, total hysterectomy, L knee arthroscopy, total L knee arthroplasty, R shoulder rotator cuff repair with pin, bilateral cataract removals/lens implants, bilateral blepharoplasties, EGD, colonoscopies/benign polypectomy. Past Anesthesia/Blood Transfusion Reactions: No Reported Reaction Additional Past Anesthesia/Blood Transfusion Reaction / Comment(s): CLAUSTROPHOBIA Type of Cardiac Device: Permanent Pacemaker Device Placement Date:: 10/02/20 Past Psychological History: Anxiety Additional Psychological History / Comment(s): claustrophobia. Pt resides with her S.O. of 53 yrs (Marcus Gaytan). She owns a cane/walker but does not use them. She does not drive. Her spouse or grand daughter drive. Grand daughter (João) is pt's DPOA. Smoking Status: Former smoker Past Alcohol Use History: None Reported Additional Past Alcohol Use History / Comment(s): STARTED SMOKING AT AGE 17, quit smoking 2017. 1 pack/week. Has an occasional cigarette, but nothing consistent. Past Drug Use History: Marijuana Additional Drug Use History / Comment(s): Tried "edibles" recently, but shahana uses on occasion. (08/2020) - Past Family History Father Family Medical History: Cancer Additional Family Medical History / Comment(s): Father had prostate cancer with mets. He at the age of 74 yrs. Sister(s) Family Medical History: Cancer Mother Family Medical History: COPD Additional Family Medical History / Comment(s): Mother at the age of 86yrs. Brother(s) Family Medical History: Musculoskeletal Disorder, Neurologic Disorder Additional Family Medical History / Comment(s): Brother of parkinson's disease. Medications and Allergies Home Medications Medication Instructions Recorded Confirmed Type Atorvastatin [Lipitor] 20 mg PO DAILY 01/19/16 10/06/20 History Sodium Bicarbonate Tab 650 mg PO DAILY 09/24/20 10/06/20 History methocarbamoL [Robaxin] 500 mg PO TID PRN 09/24/20 10/06/20 History hydrALAZINE HCL [Apresoline] 75 mg PO TID #270 tab 10/03/20 10/06/20 Rx Allergies Allergy/AdvReac Type Severity Reaction Status Date / Time No Known Allergies Allergy Verified 10/06/20 14:06 Physical Exam Vitals: Vital Signs Temp Pulse Pulse Resp BP BP Pulse Ox 10/07/20 08:12 210/80 10/07/20 07:00 98.3 F 67 16 203/63 96 10/07/20 02:00 18 10/07/20 01:48 97.6 F 72 18 130/62 95 10/06/20 22:17 57 L 149/61 96 10/06/20 19:00 98.7 F 65 18 187/68 97 10/06/20 17:06 97.9 F 57 L 18 146/64 98 10/06/20 12:47 97.6 F 80 18 156/92 96 Intake and Output 10/06/20 10/07/20 10/07/20 22:59 06:59 14:59 Other: # Voids 1 0 Weight 86.183 kg 85.8 kg - Constitutional General appearance: no acute distress - Respiratory Respiratory: bilateral: diminished - Cardiovascular Rhythm: regular Heart sounds: normal: S1, S2 Abnormal Heart Sounds: systolic murmur Results 10/06/20 13:41 10/06/20 13:41 Cardiac Enzymes 10/06/20 10/06/20 Range/Units 13:41 13:41 AST 27 (14-36) U/L Troponin I 0.026 (0.000-0.034) ng/mL Coagulation 10/06/20 Range/Units 13:41 PT 9.6 (9.0-12.0) sec APTT 21.0 L (22.0-30.0) sec CBC 10/06/20 Range/Units 13:41 WBC 9.7 (3.8-10.6) k/uL RBC 3.73 L (3.80-5.40) m/uL Hgb 11.1 L (11.4-16.0) gm/dL Hct 34.8 (34.0-46.0) % Plt Count 211 (150-450) k/uL Comprehensive Metabolic Panel 10/06/20 Range/Units 13:41 Sodium 139 (137-145) mmol/L Potassium 4.5 (3.5-5.1) mmol/L Chloride 108 H (98-107) mmol/L Carbon Dioxide 22 (22-30) mmol/L BUN 40 H (7-17) mg/dL Creatinine 1.82 H (0.52-1.04) mg/dL Glucose 145 H (74-99) mg/dL Calcium 9.4 (8.4-10.2) mg/dL AST 27 (14-36) U/L ALT 8 (4-34) U/L Alkaline Phosphatase 91 (38-126) U/L Total Protein 6.4 (6.3-8.2) g/dL Albumin 4.1 (3.5-5.0) g/dL Current Medications Generic Name Dose Route Start Last Admin Trade Name Jamey PRN Reason Stop Dose Admin Acetaminophen 650 mg 10/06/20 20:50 10/07/20 08:18 Acetaminophen Tab 325 Mg Tab PO 650 mg Q4HR PRN Administration Fever and/ or Pain Alprazolam 0.25 mg 10/06/20 20:50 10/06/20 21:05 Alprazolam 0.25 Mg Tab PO 0.25 mg HS PRN Administration Anxiety Amlodipine Besylate 5 mg 10/07/20 09:00 Amlodipine 5 Mg Tab PO BID PETERSON Atorvastatin Calcium 20 mg 10/07/20 09:00 10/07/20 08:18 Atorvastatin 20 Mg Tab PO 20 mg DAILY PETERSON Administration Heparin Sodium (Porcine) 5,000 unit 10/06/20 21:15 10/06/20 21:45 Heparin Sodium,Porcine/Pf 5,000 Unit/0.5 Ml Syringe SQ 5,000 unit Q12HR PETERSON Administration Hydralazine HCl 75 mg 10/06/20 22:00 10/07/20 08:18 Hydralazine Hcl 25 Mg Tab PO 75 mg TID PETERSON Administration Sodium Chloride 1,000 mls @ 20 mls/hr 10/06/20 17:00 10/06/20 19:36 Saline 0.9% IV Not Given .Q24H PETERSON Methocarbamol 500 mg 10/06/20 20:45 Methocarbamol 500 Mg Tab PO TID PRN Muscle Spasm Naloxone HCl 0.2 mg 10/06/20 16:47 Naloxone 0.4 Mg/Ml 1 Ml Vial IV Q2M PRN Opioid Reversal Sodium Bicarbonate 650 mg 10/07/20 09:00 10/07/20 08:18 Sodium Bicarbonate Tab 650 Mg Tab PO 650 mg DAILY PETERSON Administration Intake and Output 10/06/20 10/07/20 10/07/20 22:59 06:59 14:59 Other: # Voids 1 0 Weight 86.183 kg 85.8 kg 10/06/20 13:41 10/06/20 13:41 Assessment and Plan Assessment: Assessment #1 hypertension emergency #2 mild heart failure with preserved ejection fraction exacerbation #3 status post permanent pacemaker #4 palpitation #5 multiple comorbid conditions Plan #1 add amlodipine to the current medical regimen #2 recent echo showed normal LV function was mild aortic stenosis #3 start IV diuretics with Lasix for 24 hours #4 monitor the patient overnight for 24 hours #5 monitor the kidney function and electrolytes
--- NOTE | 2020-10-07 10:02 | P.HPIM ---
History of Present Illness H&P Date: 10/07/20 Chief Complaint: Palpitations/hypertensive urgency HISTORY OF PRESENT ILLNESS: This is an 85-year-old female who is new to me haven't seen her in the office yet with a previous medical history significant for hypertension and hypertensive cardiovascular disease, hyperlipidemia, history of chronic kidney disease stage IIIA, metabolic acidosis, GERD, history of internal hemorrhoids, history of COPD, patient was recently hospitalized at [facility] from 0 09/24/2020 till 10/03/2020 after she was admitted to the hospital for significant and symptomatically bradycardia requiring dual-chamber permanent pacemaker placement and dobutamine drip at that time patient was recently discharged from the hospital a few days ago and she was doing fine up until yesterday when she developed to have a significant palpitation and she was feeling jittery so she was very anxious she ended up coming to the emergency department for evaluation twelve-lead EKG showed dual chamber pacing, patient was extremely hypertensive in the emergency department, she is usually on hydralazine 75 mg orally 3 times every after she was taken off her metoprolol and losartan, patient had a computed tomography scan of the brain in the ER that 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 he was recommended to go for CTA however the patient has a chronic kidney disease and cannot go for that, also chest x-ray showed small bilateral pleural effusion with mild congestive heart failure, patient was started on Lasix 40 mg IV push every 24 hours, she was seen in consultation by cardiology who recommended to add Norvasc 5 mg orally twice every day, he was recommended to observe the patient for at least 24 hours prior to her discharge, her urinalysis showing evidence of urinary tract infection for which patient will be started on Rocephin 1 g IV piggyback every 24 hours, some the urine for culture, her creatinine was 1.8 her baseline creatinine is 1.5. REVIEW OF SYSTEMS: Constitutional: No documented fever, no chills, no night sweats. No weight change. No weakness, fatigue or lethargy. No daytime sleepiness. HEENT: No headache. No blurred vision or double vision, no loss of vision. No loss of Hearing, no ringing in the ears, no dizziness. No nasal drainage or con gestion. No epistaxis. No sore throat. Lungs: Minimal shortness of breath, no cough, no sputum production. No wheezing. Reports dyspnea with activity. Cardiovascular: No chest pain, no lower extremity edema. Positive for palpitations. No paroxysmal nocturnal dyspnea. No orthopnea. No lighthe adedness or dizziness. No syncopal episodes. Abdominal: Reports no abdominal pain. No nausea, vomiting. No diarrhea. No constipation. No bloody or tarry stools reports loss of appetite. Genitourinary: No dysuria, increased frequency, urgency. No urinary retention. Musculoskeletal: No myalgias. No muscle weakness, no gait dysfunction, no frequent falls. No back pain. No neck pain. Integumentary: No wounds, no lesions. No rash or pruritus. No unusual bruising. No change in hair or nails. Neurologic: No aphasia. No facial droop. No change in mentation. No head injury. No headache. No paralysis. No paresthesia. Psychiatric: No depression. No anxiety. No mood swings. Endocrine: No abnormal blood sugars. No weight change. PAST MEDICAL HISTORY: Hypertension and hypertensive cardiovascular disease Hyperlipidemia Chronic kidney disease stage IIIa. COPD. Symptomatically bradycardia status post dual-chamber permanent pacemaker placement GERD. Internal hemorrhoids. Metabolic acidosis. Anxiety. Diastolic heart failure Mild aortic stenosis History of DVT. PAST SURGICAL HISTORY: Total abdominal hysterectomy and bilateral salpingo-oophorectomy cholecystectomy Tonsillectomy and adenoidectomy Left heart catheterization IVC filter Left leg skin tear with skin repair Left knee arthroscopic surgery Left knee total arthroplasty Right shoulder rotator cuff tear repair Bilateral cataract surgery with implants Bilateral blepharoplasties EGD and colonoscopies SOCIAL HISTORY: patient used to smoke about pack a week she started smoking when she was 17-year-old and she quit in 2017 she continues to smoke on and off but nothing significant, she denies any alcohol ingestion, no drug use or abuse, she tried edibles once in a while. FAMILY HISTORY: Father at age of 74 from metastatic prostate cancer, mother at age of 86 from COPD, patient has one brother who from Parkinson disease and 1 sister who is fine, patient has 2 sons one of her son just recovered from some sort of cancer. PHYSICAL EXAMINATION: General: this is an 85-year-old female who is laying down in bed in no apparent distress. HEENT: Head is atraumatic, normocephalic, pupils were equal round reactive to light and recommendation, extraocular muscle movement were intact, sclera nonicteric, conjunctivae were pale, mucous membranes of the mouth are somewhat dry. Neck: Supple, no JVP, normal carotid upstroke bilaterally, no lymphadenopathy. Chest: Decreased breath sounds at the bases, few rhonchi, no expiratory wheezes, no chest wall tenderness, no intercostal retractions. Heart: First heart sound is normal, second heart sounds normal there is no gallop or murmur there is permanent pacemaker Abdomen: Soft, nontender, nondistended, positive bowel sounds. Extremities: There is no edema no calf tenderness DP +2 bilaterally. Neurologic examination: Patient is awake alert and orientedX 3, cranial nerves II-12 appear grossly intact, muscle power were 5 out of 5 in upper extremities and 5 out of 5 in bilateral lower extremities, deep tendon reflexes normal bilaterally. ASSESSMENT AND PLAN: 1. Palpitations with chest discomfort. Post permanent pacemaker placement few days ago, patient was seen in consultation by cardiology was recommended to monitor the patient for the next 24 hours, pacemaker appears to be functioning normal. EKG showed dual-chamber pacer 2. Acute diastolic heart failure. Start the patient on Lasix 40 mg IV push every 24 hours, continue patient on hydralazine 75 mg orally 3 times every day, we should add metoprolol 50 mg orally twice every day since the patient had a pacer maker in place. 3. Hypertensive urgency. Continue patient on hydralazine 75 minute gram orally 3 times every day, continue amlodipine 5 mg orally twice every day, monitor the patient blood pressure very closely. 4. Recent symptomatically bradycardia status post dual-chamber permanent pacemaker placement. 5. UTI. Start the patient on Rocephin 1 g IV piggyback every 24 hours. Check urine culture. 6. Acute on chronic kidney disease stage IIIa. Monitor the patient CMP closely. Continue sodium bicarbonate 650 mg orally once every day. 7. Hyperlipidemia. Continue atorvastatin 20 mg orally once every day. 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 9. History of DVT status post IVC filter placement. 10. Mild anemia likely secondary to chronic kidney disease. 11. Anxiety disorder. Continue Xanax 0.5 mg orally once at bedtime as needed. 12. DVT prophylaxis. Heparin 5000 units subcutaneously every 12 hours. 13. GI prophylaxis. Protonix 40 mg orally once every day. 14. Admit to inpatient. Estimate a length of stay 2 midnights. 15. Patient is full code. Past Medical History Past Medical History: Heart Failure, COPD, Diabetes Mellitus, Deep Vein Thrombosis (DVT), GERD/Reflux, GI Bleed, Hyperlipidemia, Hypertension, Osteoarthritis (OA), Renal Disease Additional Past Medical History / Comment(s): NIDDM type II-diet controlled, past neuropathy bilateral feet, decreased renal function, cardiac murmur, hypokalemia, L leg DVT, hemorrhoids, benign colon polyps, hemorrhoids, anemia, lower GI bleed, gastric ulcer. History of Any Multi-Drug Resistant Organisms: None Reported Past Surgical History: Adenoidectomy, Appendectomy, Cholecystectomy, Heart Catheterization, Hysterectomy, Joint Replacement, Pacemaker, Tonsillectomy Additional Past Surgical History / Comment(s): IVC filter, L leg skin tear with surgical repair, total hysterectomy, L knee arthroscopy, total L knee arthroplasty, R shoulder rotator cuff repair with pin, bilateral cataract removals/lens implants, bilateral blepharoplasties, EGD, colonoscopies/benign polypectomy. Past Anesthesia/Blood Transfusion Reactions: No Reported Reaction Additional Past Anesthesia/Blood Transfusion Reaction / Comment(s): CLAUSTROPHOBIA Type of Cardiac Device: Permanent Pacemaker Device Placement Date:: 10/02/20 Past Psychological History: Anxiety Additional Psychological History / Comment(s): claustrophobia. Pt resides with her S.O. of 53 yrs (Marcus Gaytan). She owns a cane/walker but does not use them. She does not drive. Her spouse or grand daughter drive. Grand daughter (João) is pt's DPOA. Smoking Status: Former smoker Past Alcohol Use History: None Reported Additional Past Alcohol Use History / Comment(s): STARTED SMOKING AT AGE 17, quit smoking 2017. 1 pack/week. Has an occasional cigarette, but nothing consistent. Past Drug Use History: Marijuana Additional Drug Use History / Comment(s): Tried "edibles" recently, but shahana uses on occasion. (08/2020) - Past Family History Father Family Medical History: Cancer Additional Family Medical History / Comment(s): Father had prostate cancer with mets. He at the age of 74 yrs. Sister(s) Family Medical History: Cancer Mother Family Medical History: COPD Additional Family Medical History / Comment(s): Mother at the age of 86yrs. Brother(s) Family Medical History: Musculoskeletal Disorder, Neurologic Disorder Additional Family Medical History / Comment(s): Brother of parkinson's disease. Medications and Allergies Home Medications Medication Instructions Recorded Confirmed Type Atorvastatin [Lipitor] 20 mg PO DAILY 01/19/16 10/06/20 History Sodium Bicarbonate Tab 650 mg PO DAILY 09/24/20 10/06/20 History methocarbamoL [Robaxin] 500 mg PO TID PRN 09/24/20 10/06/20 History hydrALAZINE HCL [Apresoline] 75 mg PO TID #270 tab 10/03/20 10/06/20 Rx Allergies Allergy/AdvReac Type Severity Reaction Status Date / Time No Known Allergies Allergy Verified 10/06/20 14:06 Physical Exam Vitals: Vital Signs Temp Pulse Pulse Resp BP BP Pulse Ox 10/07/20 08:12 210/80 10/07/20 07:00 98.3 F 67 16 203/63 96 10/07/20 02:00 18 10/07/20 01:48 97.6 F 72 18 130/62 95 10/06/20 22:17 57 L 149/61 96 10/06/20 19:00 98.7 F 65 18 187/68 97 10/06/20 17:06 97.9 F 57 L 18 146/64 98 10/06/20 12:47 97.6 F 80 18 156/92 96 Intake and Output 10/06/20 10/07/20 10/07/20 22:59 06:59 14:59 Intake Total 180 Balance 180 Intake: Oral 180 Other: # Voids 1 0 Weight 86.183 kg 85.8 kg Results CBC & Chem 7: 10/06/20 13:41 10/06/20 13:41 Labs: Abnormal Lab Results - Last 24 Hours (Table) 10/06/20 10/06/20 10/06/20 Range/Units 13:41 13:41 13:41 RBC 3.73 L (3.80-5.40) m/uL Hgb 11.1 L (11.4-16.0) gm/dL APTT 21.0 L (22.0-30.0) sec Chloride 108 H (98-107) mmol/L BUN 40 H (7-17) mg/dL Creatinine 1.82 H (0.52-1.04) mg/dL Glucose 145 H (74-99) mg/dL Urine Appearance (Clear) Urine Protein (Negative) Ur Leukocyte Esterase (Negative) Urine WBC (0-5) /hpf Urine Bacteria (None) /hpf Hyaline Casts (0-2) /lpf Urine Mucus (None) /hpf 10/07/20 Range/Units 06:00 RBC (3.80-5.40) m/uL Hgb (11.4-16.0) gm/dL APTT (22.0-30.0) sec Chloride (98-107) mmol/L BUN (7-17) mg/dL Creatinine (0.52-1.04) mg/dL Glucose (74-99) mg/dL Urine Appearance Cloudy H (Clear) Urine Protein Trace H (Negative) Ur Leukocyte Esterase Moderate H (Negative) Urine WBC 58 H (0-5) /hpf Urine Bacteria Occasional H (None) /hpf Hyaline Casts 3 H (0-2) /lpf Urine Mucus Rare H (None) /hpf Thrombosis Risk Factor Assmnt - Choose All That Apply Any of the Below Risk Factors Present?: Yes Each Factor Represents 1 point: Abnormal pulmonary function (COPD), Obesity (BMI >25) Other Risk Factors: Yes Each Risk Factor Represents 3 Points: History of DVT/PE Other congenital or acquired thrombophilia - If yes, enter type in comment: No Thrombosis Risk Factor Assessment Total Risk Factor Score: 5 Thrombosis Risk Factor Assessment Level: High Risk
[2020-10-07] MEDS: amLODIPine 5 MG TAB PO SCH ×2 (10:13→20:13)
[2020-10-07] MEDS: FUROSEMIDE 10 MG/ML 4 ML VIAL IV SCH (10:13)
[2020-10-07] MEDS: HEPARIN SODIUM,PORCINE/PF 5,000 UNIT/0.5 ML SYRINGE SQ SCH ×2 (10:13→20:13)
[2020-10-07] MEDS: SODIUM CHLORIDE 0.9% 1,000 ML IV SCH (18:16)
[2020-10-08 09:07] LABS: Basophils # (A) 0.1 k/uL (0-0.2); Basophils % (A) 1 %; Eosinophils # (A) 0.3 k/uL (0-0.7); Eosinophils % (A) 4 %; HCT 34.6 % (34.0-46.0); HGB 11.3 gm/dL (11.4-16.0); Lymphocytes # (A) 1.7 k/uL (1.0-4.8); Lymphocytes % (A) 25 %; MCH 30.8 pg (25.0-35.0); MCHC 32.7 g/dL (31.0-37.0); MCV 94.5 fL (80.0-100.0); Mean Platelet Volume 7.8; Monocytes # (A) 0.3 k/uL (0-1.0); Monocytes % (A) 5 %; Neutrophils # (A) 4.3 k/uL (1.3-7.7); Neutrophils % (A) 63 %; Platelet Count 220 k/uL (150-450); RBC 3.66 m/uL (3.80-5.40); RDW 14.3 % (11.5-15.5); WBC 6.8 k/uL (3.8-10.6)
[2020-10-08 09:13] LABS: Albumin 3.9 g/dL (3.5-5.0); Calcium 8.9 mg/dL (8.4-10.2); Magnesium 1.8 mg/dL (1.6-2.3); Potassium 4.2 mmol/L (3.5-5.1); Total Bilirubin 0.2 mg/dL (0.2-1.3); Total Protein 6.1 g/dL (6.3-8.2)
[2020-10-08] MEDS: ATORVASTATIN 20 MG TAB PO SCH (09:23)
[2020-10-08] MEDS: FUROSEMIDE 10 MG/ML 4 ML VIAL IV SCH (09:23)
[2020-10-08] MEDS: SODIUM BICARBONATE TAB 650 MG TAB PO SCH (09:24)
[2020-10-08] MEDS: HEPARIN SODIUM,PORCINE/PF 5,000 UNIT/0.5 ML SYRINGE SQ SCH ×2 (09:24→21:01)
[2020-10-08] MEDS: amLODIPine 5 MG TAB PO SCH ×2 (09:24→20:59)
[2020-10-08] MEDS: hydrALAZINE HCL 25 MG TAB PO SCH ×3 (09:24→23:31)
--- NOTE | 2020-10-08 10:36 | P.PN ---
Subjective Progress Note Date: 10/08/20 HISTORY OF PRESENT ILLNESS: This is a pleasant 85-year-old female patient with a past medical history significant for permanent pacemaker implantation was performed a few days ago as well as hypertension who presented to the emergency department complaining of palpitation. She stated "I just don't feel good". No symptoms of chest pain or chest discomfort and no shortness of breath and no dizziness or lightheadedness and no presyncope or syncope. She felt her heart was racing. The patient was admitted to the hospital a few weeks ago with symptomatic bradycardia and she re ceived dual chamber pacemaker. The EKG today showed sinus rhythm with dual- chamber pacing. The blood pressure was elevated and continues to be elevated with a systolic blood pressure above 200 mmHg. The patient was at home on hydralazine 75 mg by mouth 3 times a day which was continued. I'm going to add Norvasc to the current medical regimen. Her kidney function is a slightly abnormal but she is known to have chronic kidney disease and the creatinine is the same as her baseline. The chest x-ray showed small bilateral perfusion only. No NT proBNP was checked. The patient overall does not look in any overt congestive heart failure. Echocardiogram from September revealed normal left ventric ular systolic function was mild aortic stenosis but without any significant valvular abnormalities. 10/08/2020 Patient examined this morning at the bedside. She denies chest pain or pressur e. She denies shortness of breath. She denies dizziness or lightheadedness. Chest x-ray performed revealing atrial lead displacement however she continues to have atrial capture. PHYSICAL EXAM: VITAL SIGNS: Reviewed. GENERAL: Well-developed in no acute distress. NECK: Supple. No JVD or thyromegaly LUNGS: Respirations even and unlabored. Lungs essentially clear to auscultation bilaterally. HEART: Regular rate and rhythm. S1 and S2 heard. Systolic murmur. EXTREMITIES: Normal range of motion. No clubbing or cyanosis. Peripheral pulses intact. No lower extremity edema ASSESSMENT: Hypertension Mild diastolic heart failure Atrial lead displacement Recent PPM insertion PLAN: Continue current cardiac medications Monitor blood pressure Discontinue IV lasix. Begin oral lasix Patient will require PPM revision. Will discuss with Dr. Springer regarding timing. NPO at midnight Further recommendations pending patient course Nurse practitioner note has been reviewed by physician. Signing provider agrees with the documented findings, assessment, and plan of care. Objective - Vital Signs Vital signs: Vital Signs Temp 97.7 F 10/08/20 04:17 Pulse 72 10/08/20 04:17 Resp 16 10/08/20 04:17 BP 162/70 10/08/20 04:17 Pulse Ox 98 10/08/20 04:17 Intake & Output 10/07/20 10/08/20 10/08/20 18:59 06:59 18:59 Intake Total 990 550 240 Balance 990 550 240 Weight 85.5 kg Intake: Oral 990 550 240 Other: Voiding Method Toilet Toilet # Voids 2 2 # Bowel Movements 1 - Labs CBC & Chem 7: 10/08/20 08:03 10/08/20 08:03 Labs: Abnormal Lab Results - Last 24 Hours (Table) 10/08/20 10/08/20 Range/Units 08:03 08:03 RBC 3.66 L (3.80-5.40) m/uL Hgb 11.3 L (11.4-16.0) gm/dL BUN 38 H (7-17) mg/dL Creatinine 1.58 H (0.52-1.04) mg/dL Glucose 174 H (74-99) mg/dL Total Protein 6.1 L (6.3-8.2) g/dL Microbiology - Last 24 Hours (Table) 10/07/20 06:00 Urine Culture - Preliminary Urine,Voided
[2020-10-08] MEDS: ALPRAZolam 0.25 MG TAB PO PRN ×2 (11:45→18:14)
[2020-10-08 11:46] LABS: Glucose,Whole Blood 125 mg/dL (75-99)
--- NOTE | 2020-10-08 11:50 | P.CNNES ---
History of Present Illness Consult date: 10/08/20 History of Present Illness: The patient is an 85-year-old female who is seen in neurologic consultation on October 08, 2020, via teleneurology. The chart is reviewed. The patient reports that she is in the hospital to have her pacemaker revised. She says that she recently had a pacemaker placed. She was told that one of the leads is working incorrectly and needs to be redone. 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 This aneurysm is reported on the CT scan the brain. These images are reviewed. The patient reports a long history of headaches. She also reports that approximate one month ago she had an episode of difficulty with her speech. She thinks she had "a mini stroke". The patient subsequently went to bed, slept for 14 hours and when she woke up her speech was normal. Patient denies weakness and paresthesias in her extremities. There is no diplopia. She has had no further speech difficulties. Past Medical History Past Medical History: Heart Failure, COPD, Diabetes Mellitus, Deep Vein Thrombosis (DVT), GERD/Reflux, GI Bleed, Hyperlipidemia, Hypertension, Osteoarthritis (OA), Renal Disease Additional Past Medical History / Comment(s): NIDDM type II-diet controlled, past neuropathy bilateral feet, decreased renal function, cardiac murmur, hypokalemia, L leg DVT, hemorrhoids, benign colon polyps, hemorrhoids, anemia, lower GI bleed, gastric ulcer. History of Any Multi-Drug Resistant Organisms: None Reported Past Surgical History: Adenoidectomy, Appendectomy, Cholecystectomy, Heart Catheterization, Hysterectomy, Joint Replacement, Pacemaker, Tonsillectomy Additional Past Surgical History / Comment(s): IVC filter, L leg skin tear with surgical repair, total hysterectomy, L knee arthroscopy, total L knee arthroplasty, R shoulder rotator cuff repair with pin, bilateral cataract removals/lens implants, bilateral blepharoplasties, EGD, colonoscopies/benign polypectomy. Past Anesthesia/Blood Transfusion Reactions: No Reported Reaction Additional Past Anesthesia/Blood Transfusion Reaction / Comment(s): CLAUSTROPHOBIA Type of Cardiac Device: Permanent Pacemaker Device Placement Date:: 10/02/20 Past Psychological History: Anxiety Additional Psychological History / Comment(s): claustrophobia. Pt resides with her S.O. of 53 yrs (Marcus Gaytan). She owns a cane/walker but does not use them. She does not drive. Her spouse or grand daughter drive. Grand daughter (João) is pt's DPOA. Smoking Status: Former smoker Past Alcohol Use History: None Reported Additional Past Alcohol Use History / Comment(s): STARTED SMOKING AT AGE 17, quit smoking 2017. 1 pack/week. Has an occasional cigarette, but nothing consistent. Past Drug Use History: Marijuana Additional Drug Use History / Comment(s): Tried "edibles" recently, but shahana uses on occasion. (08/2020) - Past Family History Father Family Medical History: Cancer Additional Family Medical History / Comment(s): Father had prostate cancer with mets. He at the age of 74 yrs. Sister(s) Family Medical History: Cancer Mother Family Medical History: COPD Additional Family Medical History / Comment(s): Mother at the age of 86yrs. Brother(s) Family Medical History: Musculoskeletal Disorder, Neurologic Disorder Additional Family Medical History / Comment(s): Brother of parkinson's disease. Medications and Allergies Home Medications Medication Instructions Recorded Confirmed Type Atorvastatin [Lipitor] 20 mg PO DAILY 01/19/16 10/06/20 History Sodium Bicarbonate Tab 650 mg PO DAILY 09/24/20 10/06/20 History methocarbamoL [Robaxin] 500 mg PO TID PRN 09/24/20 10/06/20 History hydrALAZINE HCL [Apresoline] 75 mg PO TID #270 tab 10/03/20 10/06/20 Rx Allergies Allergy/AdvReac Type Severity Reaction Status Date / Time No Known Allergies Allergy Verified 10/06/20 14:06 Physical Examination - Vital Signs Vital Signs: Vital Signs Temp Pulse Resp BP Pulse Ox 10/08/20 04:17 97.7 F 72 16 162/70 98 10/08/20 02:55 16 10/07/20 23:52 98.1 F 62 16 122/67 95 10/07/20 20:15 59 L 16 10/07/20 20:11 98.2 F 59 L 16 96 10/07/20 16:00 84 130/68 97 10/07/20 15:18 82 134/62 98 10/07/20 12:30 79 16 122/72 97 10/07/20 09:26 130/60 Intake and Output 10/07/20 10/08/20 10/08/20 22:59 06:59 14:59 Intake Total 460 550 240 Balance 460 550 240 Intake: Oral 460 550 240 Other: Voiding Method Toilet Toilet # Voids 2 Weight 85.5 kg Gen.: Patient is reclining in the bed. She is wearing a sling for support of her left arm. She is in no distress. HEENT: Head is atraumatic, normocephalic. Fundus not visualized. There is no scleral icterus. Mucous members are moist. Neck: Supple without carotid bruits Heart: Irregular Extremities: Without edema Neurological examination Mental status: The patient is awake, alert and oriented 3. Her speech is clear. There is no dysarthria. Cranial nerves: Pupils are equal at 2 mm and reactive. Visual patton are full to confrontation. Extraocular movements are intact. There is no nystagmus. Facial sensation is intact. There is no facial asymmetry. Hearing is grossly intact. Uvula and palate are midline. Shoulder shrug is symmetric. Tongue protrudes midline. Motor: Strength is 4/5 in the right upper extremity. Left upper extremity strength is not assessed. Hip flexor 4/5. Right hip flexor 5/5. Sensation: Grossly intact to light touch. There is no extinction with double simultaneous stimulation. Coordination: Right-sided finger to nose testing is intact. Deep tendon reflexes: 2+/4+ in the right upper and lower extremities. Left upper extremity reflexes are not assessed. Left patellar reflex is absent. Results - Laboratory Findings CBC and BMP: 10/08/20 08:03 10/08/20 08:03 Abnormal Lab Findings: Abnormal Labs 10/06/20 10/06/20 10/06/20 13:41 13:41 13:41 RBC 3.73 L Hgb 11.1 L APTT 21.0 L Chloride 108 H BUN 40 H Creatinine 1.82 H Glucose 145 H Urine Appearance Urine Protein Ur Leukocyte Esterase Urine WBC Urine Bacteria Hyaline Casts Urine Mucus 10/07/20 06:00 RBC Hgb APTT Chloride BUN Creatinine Glucose Urine Appearance Cloudy H Urine Protein Trace H Ur Leukocyte Esterase Moderate H Urine WBC 58 H Urine Bacteria Occasional H Hyaline Casts 3 H Urine Mucus Rare H Assessment and Plan Assessment: 1. The patient has a normal neurological examination. 2. Multiple medical problems Plan: 1. 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 Also consider interventional neurology or neuro radiology 2. Continue tight blood pressure control Time with Patient: Greater than 30 (spent 40 minutes with patient via teleneurology)
[2020-10-08] MEDS: INSULIN ASPART (NovoLOG) 100 UNIT/ML VIAL SQ SCH ×3 (12:55→23:33)
--- NOTE | 2020-10-08 16:42 | P.PN ---
Subjective Progress Note Date: 10/08/20 Principal diagnosis: Mild exacerbation diastolic CHF Palpitations/recent PPM insertion Atrial lead displacement Uncontrolled hypertension 85-year-old female patient with a past medical history significant for permanent pacemaker implantation was performed a few days ago as well as hypertension who presented to the emergency department complaining of p alpitation. Patient was admitted to the hospital a few weeks ago with symptomatic bradycardia and received dual-chamber pacemaker placement 10/08/2020 Patient is seen and evaluated in room at bedside; denies any complaint of chest pain, shortness of breath or palpitations EKG reveals sinus rhythm with dual-chamber pacing; chest x-ray was done which revealed atrial lead displacement; patient continues to have atrial capture on monitor Vital signs are reviewed and are stable; patient is started on Norvasc for improved blood pressure control; has been diuresed with IV Lasix; cardiology recommending to transition to oral Lasix at this time; we will continue to monitor strict TIA's, daily weights, renal function and electrolytes; patient is to be evaluated by Dr. Springer for PPM revision; patient is going to be on. Midnight for possible intervention tomorrow Objective - Vital Signs Vital signs: Vital Signs Temp 98.0 F 10/08/20 08:00 Pulse 81 10/08/20 10:45 Resp 16 10/08/20 04:17 BP 139/75 10/08/20 10:45 Pulse Ox 96 10/08/20 08:00 Intake & Output 10/07/20 10/08/20 10/08/20 18:59 06:59 18:59 Intake Total 990 550 340 Balance 990 550 340 Weight 85.5 kg Intake: Oral 990 550 340 Other: Voiding Method Toilet Toilet # Voids 2 2 # Bowel Movements 1 - Exam - Constitutional General appearance: Present: average body habitus, cooperative, no acute distress - EENT Eyes: Present: anicteric sclerae, EOMI, PERRLA, normal appearance ENT: Present: hearing grossly normal, normal oropharynx Ears: bilateral: normal - Neck Neck: Present: normal ROM. Absent: lymphadenopathy, rigidity, thyromegaly Carotids: negative: bruit present Thyroid: bilateral: normal size, negative: enlarged, nodule - Respiratory Respiratory: bilateral: CTA, negative: rales, rhonchi, wheezing - Cardiovascular Rhythm: regular Heart sounds: normal: S1, S2 Abnormal Heart Sounds: Absent: systolic murmur, diastolic murmur - Gastrointestinal General gastrointestinal: Present: normal bowel sounds, soft. Absent: distended, organomegaly, tenderness - Genitourinary Genitourinary Comment(s): deferred - Integumentary Integumentary: Present: normal turgor. Absent: jaundiced, rash, ulcer - Neurologic Neurologic: Present: CNII-XII intact. Absent: focal deficits - Musculoskeletal Musculoskeletal: Present: gait normal, strength equal bilaterally - Psychiatric Psychiatric: Present: A&O x's 3, appropriate affect, intact judgment & insight - Labs CBC & Chem 7: 10/08/20 08:03 10/08/20 08:03 Labs: Abnormal Lab Results - Last 24 Hours (Table) 10/08/20 10/08/20 10/08/20 Range/Units 08:03 08:03 11:40 RBC 3.66 L (3.80-5.40) m/uL Hgb 11.3 L (11.4-16.0) gm/dL BUN 38 H (7-17) mg/dL Creatinine 1.58 H (0.52-1.04) mg/dL Glucose 174 H (74-99) mg/dL POC Glucose (mg/dL) 125 H (75-99) mg/dL Total Protein 6.1 L (6.3-8.2) g/dL Microbiology - Last 24 Hours (Table) 10/07/20 06:00 Urine Culture - Preliminary Urine,Voided Assessment and Plan Assessment: 1. Palpitations; recent PPM insertion; atrial lead displacement - Patient to be nothing by mouth at midnight tonight for PPM the patient most likely tomorrow morning; Dr. Springer to see patient tomorrow - Patient will be monitored on telemetry 2. Uncontrolled hypertension - Patient started on Norvasc resulting in improved blood pressure control; we will continue to monitor for further adjustments 3. UTI; patient remains on IV Rocephin; urine culture reveals greater than 100,000 gram-negative bacilli; final culture report is pending 4. Mild exacerbation diastolic CHF; treated with IV Lasix; cardiology recommending transition to oral Lasix 5. Hyperlipidemia; Lipitor 20 mg by mouth daily DVT prophylaxis; SCDs/subcu heparin CODE STATUS; full code
[2020-10-08 16:58] LABS: Glucose,Whole Blood 115 mg/dL (75-99)
[2020-10-08] MEDS: SODIUM CHLORIDE 0.9% 1,000 ML IV SCH (17:24)
[2020-10-08] MEDS: ACETAMINOPHEN TAB 325 MG TAB PO PRN ×2 (18:14→23:31)
[2020-10-09] MEDS: ALPRAZolam 0.25 MG TAB PO PRN ×3 (01:06→19:15)
[2020-10-09 06:33] LABS: Glucose,Whole Blood 108 mg/dL (75-99)
[2020-10-09] MEDS: INSULIN ASPART (NovoLOG) 100 UNIT/ML VIAL SQ SCH ×4 (06:49→20:37)
--- NOTE | 2020-10-09 08:11 | P.PN ---
Subjective Progress Note Date: 10/09/20 HISTORY OF PRESENT ILLNESS: This is an 85-year-old female who is new to me haven't seen her in the office yet with a previous medical history significant for hypertension and hypertensive cardiovascular disease, hyperlipidemia, history of chronic kidney disease stage IIIA, metabolic acidosis, GERD, history of internal hemorrhoids, history of COPD, patient was recently hospitalized at [facility] from 09/24/2020 till 10/03/2020 after she was admitted to the hospital for significant and symptomatically bradycardia requiring dual-chamber permanent pacemaker placement and dobutamine drip at that time patient was recently discharged from the hospital a few days ago and she was doing fine up until yesterday when she developed to have a significant palpitation and she was feeling jittery so she was very anxious she ended up coming to the emergency department for evaluation twelve-lead EKG showed dual chamber pacing, patient was extremely hypertensive in the emergency department, she is usually on hydralazine 75 mg orally 3 times every after she was taken off her metoprolol and losartan, patient had a computed tomography scan of the brain in the ER that 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 he was recommended to go for CTA however the patient has a chronic kidney disease and cannot go for that, also chest x-ray showed small bilateral pleural effusion with mild congestive heart failure, patient was started on Lasix 40 mg IV push every 24 hours, she was seen in consultation by cardiology who recommended to add Norvasc 5 mg orally twice every day, he was recommended to observe the patient for at least 24 hours prior to her discharge, her urinalysis showing evidence of urinary tract infection for which patient will be started on Rocephin 1 g IV piggyback every 24 hours, some the urine for culture, her creatinine was 1.8 her baseline creatinine is 1.5. 10/08/2020 Patient is seen and evaluated in room at bedside; denies any complaint of chest pain, shortness of breath or palpitations EKG reveals sinus rhythm with dual-chamber pacing; chest x-ray was done which revealed atrial lead displacement; patient continues to have atrial capture on monitor Vital signs are reviewed and are stable; patient is started on Norvasc for improved blood pressure control; has been diuresed with IV Lasix; cardiology recommending to transition to oral Lasix at this time; we will continue to monitor strict TIA's, daily weights, renal function and electrolytes; patient is to be evaluated by Dr. Springer for PPM revision; patient is going to be on. Mid night for possible intervention tomorrow 10/09: Patient states that her back discomfort is okay. She is complaining of a headache. No shortness of breath. She has been seen by cardiology with plan for pacemaker revision today. Patient is nothing by mouth. She has been afebrile, heart rate 64, blood pressure 131/79, pulse ox 96% on room air. Urine culture is positive for gram-negative bacilli. Patient is requesting Xanax prior to the pacemaker procedure which will be ordered. REVIEW OF SYSTEMS: Constitutional: No documented fever, no chills, no night sweats. No weight change. No weakness, fatigue or lethargy. No daytime sleepiness. HEENT: No headache. No blurred vision or double vision, no loss of vision. No loss of Hearing, no ringing in the ears, no dizziness. No nasal drainage or congestion. No epistaxis. No sore throat. Lungs: Minimal shortness of breath, no cough, no sputum production. No wheezing. Reports dyspnea with activity. Cardiovascular: No chest pain, no lower extremity edema. Positive for palpitations. No paroxysmal nocturnal dyspnea. No orthopnea. No lightheadedness or dizziness. No syncopal episodes. Abdominal: Reports no abdominal pain. No nausea, vomiting. No diarrhea. No constipation. No bloody or tarry stools reports loss of appetite. Genitourinary: No dysuria, increased frequency, urgency. No urinary retention. Musculoskeletal: No myalgias. No muscle weakness, no gait dysfunction, no frequent falls. No back pain. No neck pain. Integumentary: No wounds, no lesions. No rash or pruritus. No unusual bruising. No change in hair or nails. Neurologic: No aphasia. No facial droop. No change in mentation. No head injury. No headache. No paralysis. No paresthesia. Psychiatric: No depression. No anxiety. No mood swings. Endocrine: No abnormal blood sugars. No weight change. PHYSICAL EXAMINATION: General: this is an 85-year-old female who is laying down in bed in no apparent distress. HEENT: Head is atraumatic, normocephalic, pupils were equal round reactive to light and recommendation, extraocular muscle movement were intact, sclera nonicteric, conjunctivae were pale, mucous membranes of the mouth are somewhat dry. Neck: Supple, no JVP, normal carotid upstroke bilaterally, no lymphadenopathy. Chest: Decreased breath sounds at the bases, few rhonchi, no expiratory wheezes, no chest wall tenderness, no intercostal retractions. Heart: First heart sound is normal, second heart sounds normal there is no lr p or murmur there is permanent pacemaker Abdomen: Soft, nontender, nondistended, positive bowel sounds. Extremities: There is no edema no calf tenderness DP +2 bilaterally. Neurologic examination: Patient is awake alert and orientedX 3, cranial nerves II-12 appear grossly intact, muscle power were 5 out of 5 in upper extremities and 5 out of 5 in bilateral lower extremities, deep tendon reflexes normal bilaterally. ASSESSMENT AND PLAN: 1. Palpitations with chest discomfort. Post permanent pacemaker placement few days ago, patient was seen in consultation by cardiology was recommended for p acemaker revision. EKG showed dual-chamber pacer 2. Acute diastolic heart failure. Continue Lasix 40 mg oral daily, continue patient on hydralazine 75 mg orally 3 times every day, we should add metoprolol 50 mg orally twice every day since the patient had a pacer maker in place. 3. Hypertensive urgency. Continue patient on hydralazine 75 minute gram orally 3 times every day, continue amlodipine 5 mg orally twice every day, monitor the patient blood pressure very closely. 4. Recent symptomatically bradycardia status post dual-chamber permanent pacemaker placement. 5. UTI. Start the patient on Rocephin 1 g IV piggyback every 24 hours. Monitor urine culture. 6. Acute on chronic kidney disease stage IIIa. Monitor the patient CMP closely. Continue sodium bicarbonate 650 mg orally once every day. Repeat BMP today and tomorrow 7. Hyperlipidemia. Continue atorvastatin 20 mg orally once every day. 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 9. History of DVT status post IVC filter placement. 10. Mild anemia likely secondary to chronic kidney disease. 11. Generalized Anxiety disorder. Continue Xanax 0.25 mg orally increased to 3 times daily as needed. 12. DVT prophylaxis. Heparin 5000 units subcutaneously every 12 hours. 13. GI prophylaxis. Protonix 40 mg orally once every day. CODE STATUS: No code DISCHARGE PLAN Home with [facility] most likely by tomorrow. Impression and plan of care have been directed as dictated by the signing physician. Lorna Abdi nurse practitioner acting as scribe for signing physician. Objective - Vital Signs Vital signs: Vital Signs Temp 98.6 F 10/09/20 04:56 Pulse 64 10/09/20 04:56 Resp 16 10/09/20 04:56 BP 131/79 10/09/20 04:56 Pulse Ox 96 10/09/20 04:56 Intake & Output 10/08/20 10/09/20 10/09/20 18:59 06:59 18:59 Intake Total 340 Balance 340 Weight 86 kg Intake: Oral 340 Other: Voiding Method Toilet # Voids 1 1 - Labs CBC & Chem 7: 10/08/20 08:03 10/08/20 08:03 Labs: Abnormal Lab Results - Last 24 Hours (Table) 10/08/20 10/08/20 10/08/20 Range/Units 08:03 08:03 11:40 RBC 3.66 L (3.80-5.40) m/uL Hgb 11.3 L (11.4-16.0) gm/dL BUN 38 H (7-17) mg/dL Creatinine 1.58 H (0.52-1.04) mg/dL Glucose 174 H (74-99) mg/dL POC Glucose (mg/dL) 125 H (75-99) mg/dL Total Protein 6.1 L (6.3-8.2) g/dL 10/08/20 10/09/20 Range/Units 16:51 06:31 RBC (3.80-5.40) m/uL Hgb (11.4-16.0) gm/dL BUN (7-17) mg/dL Creatinine (0.52-1.04) mg/dL Glucose (74-99) mg/dL POC Glucose (mg/dL) 115 H 108 H (75-99) mg/dL Total Protein (6.3-8.2) g/dL Microbiology - Last 24 Hours (Table) 10/07/20 06:00 Urine Culture - Preliminary Urine,Voided Gram Neg Bacilli
[2020-10-09] MEDS: amLODIPine 5 MG TAB PO SCH ×2 (08:23→20:37)
[2020-10-09] MEDS: hydrALAZINE HCL 25 MG TAB PO SCH ×3 (08:23→20:36)
[2020-10-09] MEDS: SODIUM BICARBONATE TAB 650 MG TAB PO SCH (08:23)
[2020-10-09] MEDS: ATORVASTATIN 20 MG TAB PO SCH (08:23)
[2020-10-09] MEDS: FUROSEMIDE 40 MG TAB PO SCH (08:24)
[2020-10-09] MEDS: HEPARIN SODIUM,PORCINE/PF 5,000 UNIT/0.5 ML SYRINGE SQ SCH ×2 (08:24→20:37)
[2020-10-09] MEDS: ACETAMINOPHEN TAB 325 MG TAB PO PRN (08:26)
[2020-10-09 08:30] LABS: Calcium 8.5 mg/dL (8.4-10.2); Potassium 4.1 mmol/L (3.5-5.1)
[2020-10-09] MEDS ORDERED: LIDOCAINE 1% INJ 10MG/ML (20 ML MDV) ONE (11:08)
[2020-10-09] MEDS: MIDAZOLAM 2 MG/2 ML VIAL IV ONE ×2 (11:40→11:48)
[2020-10-09] MEDS ORDERED: LIDOCAINE 1% INJ 10MG/ML (20 ML MDV) SQ ONE (11:41)
[2020-10-09] MEDS ORDERED: IV FLUID CONTINUATION 400 ML IV ONE (11:49)
[2020-10-09] MEDS ORDERED: ceFAZolin 1 GM in SODIUM CHLORIDE 0.9% 250 ML IRRIGATION PRN (12:00)
--- NOTE | 2020-10-09 13:59 | XR ---
EXAMINATION TYPE: XR chest 1V portable DATE OF EXAM: 10/09/2020 COMPARISON: 10/06/2020 HISTORY: Pacemaker placement TECHNIQUE: Single frontal view of the chest is obtained. FINDINGS: No pneumothorax. Hyperinflation suggests COPD there is biapical pleural thickening. Diffus e osteopenia with postsurgical change right shoulder. Degenerative change of the spine. Atherosclerot ic change aorta. Double lead cardiac device seen with the proximal lead overlying the right atrium and distal lead ove rlying right ventricle. Heart size normal and there are subsegmental consolidation of both lung bases . No overt failure. No sizable pleural effusion. IMPRESSION: 1. Cardiac device appears in good position with no postprocedural complication.
[2020-10-09 15:59] LABS: Hemoglobin A1C 6.5 % (4.0-6.0)
[2020-10-09 16:34] LABS: Glucose,Whole Blood 147 mg/dL (75-99)
--- NOTE | 2020-10-09 17:37 | PCN ---
PROCEDURE NOTE DATE OF SERVICE: 10/09/2020 PROCEDURE: Atrial lead revision. PERFORMED BY: Dr. Brittany Springer SEDATION: Moderate conscious sedation time was 46 minutes. Patient was administered Versed. Oxygen saturation, hemodynamics and EKG were monitored closely. CLINICAL INFORMATION: Mrs. Troy Green had a permanent pacemaker on 10/02/2020 with a dual-chamber pacer for symptomatic bradycardia. She was discharged after checking the device the next day and an x-ray, both of which were good. However, she came in with palpitations. Chest x- ray revealed dislodgement of the atrial lead with high thresholds. The ventricular numbers were very good. She was advised atrial lead revision, brought in for the procedure after due discussion regarding the rationale, risks, benefits, and options. PROCEDURE NOTE: Under strict aseptic precautions and local anesthesia, a linear incision was made over the previous incision. The pacemaker pocket was opened up. The pacemaker device which was sutured to the underlying muscle was also freed by cutting the retaining suture. The atrial lead was also released from the retaining sutures. The atrial lead was then taken out of the pulse generator by unscrewing the lead. A straight stylet was used to reposition the lead and the stylet was advanced all the way down and the screw was retracted. Subsequently, a curved lead was advanced and a good lead position was obtained. The lead was checked in SYRIAC and THORPE projections. There was good capture and acceptable P waves were noted with good impedance. I double-checked this on a 7.5 volt after finishing the procedure. The patient tolerated well. There were no complications. The lead was then sutured to the underlying muscle with 2 separate sutures. The lead was connected to the pulse generator. The pulse generator was also secured to the underlying muscle. The pocket was closed in 2 layers after irrigation with the antibiotics. Patient also received intravenous antibiotic at the beginning of the procedure. Following the closure of the pacemaker pocket, the pulse generator and leads were visualized. They were in good position with good slack. The patient tolerated the procedure well without complications. The pulse generator was also secured to the underlying muscle. PACEMAKER DETAILS: The pacemaker pulse generator carry all driver [employer], model Assurity MRI 2272, serial #[id number]. Atrial lead carry all driver [employer], tendril [id number], serial number [id number]. The ventricular lead was not addressed and this was also manufactured by [employer], model tendril [id number], serial number #[id number]. The atrial threshold was 0.5 V at 0.4 milliseconds. P-waves were 2.0 mV, lead impedance was 430. The ventricular lead threshold was 0.5 V at 0.4 milliseconds. R- waves were 5.8 mV. Lead impedance was 600 ohms. The pacemaker was set in a DDD mode with a low rate of 50, high rate of 110, a paced AV delay of 300 milliseconds and a sensed AV delay of 275 milliseconds. The patient tolerated the procedure well without complications. Moderate conscious sedation time was 46 minutes. The patient will be sent to the room after getting a chest x-ray. She will receive intravenous antibiotics for 4 more doses. I expect she will be discharged tomorrow after we recheck the chest x-ray, 2 views and device check. The patient tolerated procedure well without complications. Findings and details were discussed with the patient's son. TOVA / ZION: [id number] /
[2020-10-09] MEDS: SODIUM CHLORIDE 0.9% 1,000 ML IV SCH (17:39)
[2020-10-09 20:04] LABS: Glucose,Whole Blood 283 mg/dL (75-99)
[2020-10-10 06:15] LABS: Glucose,Whole Blood 111 mg/dL (75-99)
[2020-10-10] MEDS: INSULIN ASPART (NovoLOG) 100 UNIT/ML VIAL SQ SCH ×2 (06:37→12:01)
[2020-10-10] MEDS: ALPRAZolam 0.25 MG TAB PO PRN ×2 (06:44→14:36)
[2020-10-10] MEDS ORDERED: ceFAZolin 1 GM in SODIUM CHLORIDE 0.9% 250 ML IRRIGATION PRN (07:00)
--- NOTE | 2020-10-10 07:15 | XR ---
EXAMINATION TYPE: XR chest 2V DATE OF EXAM: 10/10/2020 COMPARISON: 10/09/2020 HISTORY: Lead placement check TECHNIQUE: Frontal and lateral views of the chest are obtained. FINDINGS: The lungs demonstrate no significant airspace disease, pleural effusion or pneumothorax. Lungs are sl ightly hyperinflated, suggestive of COPD. Cardiac silhouette is unchanged in size. Pacer leads are unchanged with battery pack obscuring a port ion of the left hemithorax. Right shoulder hardware is incompletely included. IMPRESSION: No significant change since the prior exam.
[2020-10-10 07:28] LABS: Calcium 8.7 mg/dL (8.4-10.2); Potassium 3.9 mmol/L (3.5-5.1)
--- NOTE | 2020-10-10 07:52 | P.DS ---
Providers Date of admission: 10/09/20 08:00 Expected date of discharge: 10/10/20 Attending physician: Aaron Story Consults: 10/06/20 16:49 Consult Physician Routine Consulting Provider: Marvin Curry Consult Reason/Comments: Brain Aneurysm Do you want consulting provider notified?: Yes 10/07/20 07:41 Consult Physician Routine Consulting Provider: El Ireland Consult Reason/Comments: palpitations, feeling of thumping in chest since pacemaker placed Do you want consulting provider notified?: Yes Primary care physician: Aaron Story Hospital Course: HISTORY OF PRESENT ILLNESS: This is an 85-year-old female who is new to me haven't seen her in the office yet with a previous medical history significant for hypertension and hypertensive cardiovascular disease, hyperlipidemia, history of chronic kidney disease stage IIIA, metabolic acidosis, GERD, history of internal hemorrhoids, history of COPD, patient was recently hospitalized at [facility] from 09/24/2020 till 10/03/2020 after she was admitted to the hospital for significant and symptomatically bradycardia requiring dual-chamber permanent pacemaker placement and dobutamine drip at that time patient was recently discharged from the hospital a few days ago and she was doing fine up until yesterday when she developed to have a significant palpitation and she was feeling jittery so she was very anxious she ended up coming to the emergency department for evaluation twelve-lead EKG showed dual chamber pacing, patient was extremely hypertensive in the emergency department, she is usually on hy dralazine 75 mg orally 3 times every after she was taken off her metoprolol and losartan, patient had a computed tomography scan of the brain in the ER that 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 he was recommended to go for CTA however the patient has a chronic kidney disease and cannot go for that, also chest x-ray showed small bilateral pleural effusion with mild congestive heart failure, patient was started on Lasix 40 mg IV push every 24 hours, she was seen in consultation by cardiology who recommended to add Norvasc 5 mg orally twice every day, he was recommended to observe the patient for at least 24 hours prior to her discharge, her urinalysis showing evidence of urinary tract infection for which patient will be started on Rocephin 1 g IV piggyback every 24 hours, some the urine for culture, her creatinine was 1.8 her baseline creatinine is 1.5. 10/08/2020 Patient is seen and evaluated in room at bedside; denies any complaint of chest pain, shortness of breath or palpitations EKG reveals sinus rhythm with dual-chamber pacing; chest x-ray was done which revealed atrial lead displacement; patient continues to have atrial capture on monitor Vital signs are reviewed and are stable; patient is started on Norvasc for improved blood pressure control; has been diuresed with IV Lasix; cardiology recommending to transition to oral Lasix at this time; we will continue to monitor strict TIA's, daily weights, renal function and electrolytes; patient is to be evaluated by Dr. Springer for PPM revision; patient is going to be on. Midnight for possible intervention tomorrow 10/09: Patient states that her back discomfort is okay. She is complaining of a headache. No shortness of breath. She has been seen by cardiology with plan for pacemaker revision today. Patient is nothing by mouth. She has been afebrile, heart rate 64, blood pressure 131/79, pulse ox 96% on room air. Urine culture is positive for gram-negative bacilli. Patient is requesting Xanax prior to the pacemaker procedure which will be ordered. 10/10: Repeat chest x-ray this morning reveals no significant change from exam yesterday. Yesterday's exam revealed cardiac device appears in good position with no postprocedure complication. Yesterday, patient underwent atrial lead replacement with Dr. EULOGIO Branch. Patient is currently on Kefzol for postprocedure antibiotics and Rocephin will be discontinued. Urine culture is positive for Enterobacter and patient will be discharged on Ceftin. Patient's daughter is requesting subacute rehab and PT and OT will be seeing the patient this morning. Patient has a sling in place to the left arm. She denies having any pain. She denies any shortness of breath. Patient will be discharged today in stable condition once arrangements are completed. ASSESSMENT AND PLAN: 1. Palpitations with chest discomfort possibly related to the atrial lead displacement status post revision.. 2. Acute diastolic heart failure. 3. Hypertensive urgency. 4. Recent symptomatically bradycardia status post dual-chamber permanent pacemaker placement. 5. UTI. 6. Acute on chronic kidney disease stage IIIa. 7. Hyperlipidemia. 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 Follow up with interventional neurology in the very near future. 9. History of DVT status post IVC filter placement. 10. Mild anemia likely secondary to chronic kidney disease. 11. Generalized Anxiety disorder. DISCHARGE PLAN [facility] Impression and plan of care have been directed as dictated by the signing physician. Lorna Abdi nurse practitioner acting as scribe for signing physician. Patient Condition at Discharge: Good Plan - Discharge Summary Discharge Rx Participant: No New Discharge Prescriptions: New Cefuroxime [Ceftin] 250 mg PO BID 4 Days #8 tab Furosemide [Lasix] 40 mg PO DAILY #30 tab amLODIPine [Norvasc] 5 mg PO BID #60 tab Continue Atorvastatin [Lipitor] 20 mg PO DAILY hydrALAZINE HCL [Apresoline] 75 mg PO TID #270 tab methocarbamoL [Robaxin] 500 mg PO TID PRN PRN Reason: Muscle Spasm Sodium Bicarbonate Tab 650 mg PO DAILY Discharge Medication List Atorvastatin [Lipitor] 20 mg PO DAILY 01/19/16 [History] Sodium Bicarbonate Tab 650 mg PO DAILY 09/24/20 [History] methocarbamoL [Robaxin] 500 mg PO TID PRN 09/24/20 [History] hydrALAZINE HCL [Apresoline] 75 mg PO TID #270 tab 10/03/20 [Rx] Cefuroxime [Ceftin] 250 mg PO BID 4 Days #8 tab 10/10/20 [Rx] Furosemide [Lasix] 40 mg PO DAILY #30 tab 10/10/20 [Rx] amLODIPine [Norvasc] 5 mg PO BID #60 tab 10/10/20 [Rx] Follow up Appointment(s)/Referral(s): James Sales MD [Medical Doctor] - 1 Week Nadine Springer MD [STAFF PHYSICIAN] - 1 Week Aaron Story MD [Primary Care Provider] - 1 Week Discharge Disposition: HOME SELF-CARE
[2020-10-10] MEDS: hydrALAZINE HCL 25 MG TAB PO SCH (08:58)
[2020-10-10] MEDS: SODIUM BICARBONATE TAB 650 MG TAB PO SCH (08:58)
[2020-10-10] MEDS: ATORVASTATIN 20 MG TAB PO SCH (08:58)
[2020-10-10] MEDS: HEPARIN SODIUM,PORCINE/PF 5,000 UNIT/0.5 ML SYRINGE SQ SCH (08:58)
[2020-10-10] MEDS: FUROSEMIDE 40 MG TAB PO SCH (08:58)
[2020-10-10] MEDS: amLODIPine 5 MG TAB PO SCH (08:58)
[2020-10-10 10:22] VITALS: RESP 16
--- NOTE | 2020-10-10 11:08 | P.PN ---
Subjective This is a pleasant 85-year-old female who underwent atrial lead revision yesterday with Dr. Springer. She is seen and examined resting comfortably laying flat in bed in no acute distress. She denies symptoms of chest pain, shortness of breath, dizziness or palpitations. Post procedure chest x-rays reviewed, no evidence of pneumothorax or post procedure complication. Leads appear placed properly. Post procedure seen September interrogation reveals normal functioning pacemaker and thresholds. Blood pressure 123/70 heart rate 72 afebrile maintaining oxygen saturation on room air. Laboratory data reviewed, sodium 138, potassium 3.9, creatinine 1.51. GENERAL: Well-appearing, well-nourished and in no acute distress. NECK: Supple without JVD or thyromegaly. LUNGS: Breath sounds clear to auscultation bilaterally. Respiration equal and unlabored. No wheezes, rales or rhonchi. HEART: Regular rate and rhythm with systolic ejection murmur at the base, no rubs or gallops. S1 and S2 heard. EXTREMITIES: Normal range of motion, no edema. No clubbing or cyanosis. Peripheral pulses intact. Dressing in place to the left anterior chest wall clean dry and intact with no evidence of bruising or bleeding. Sling to the left upper extremity in place. ASSESSMENT Status post pacemaker lead revision PLAN Stable for discharge from a cardiac perspective. Sling in place with instructions for activity level and discharge. Follow-up in the office with Dr. Springer next week. Nurse Practitioner note has been reviewed, I agree with a documented findings and plan of care. Patient was seen and examined. Objective - Vital Signs Vital signs: Vital Signs Temp 98.7 F 10/10/20 08:26 Pulse 72 10/10/20 08:26 Resp 16 10/10/20 08:26 BP 123/70 10/10/20 08:26 Pulse Ox 96 10/10/20 08:26 Intake & Output 10/09/20 10/10/20 10/10/20 18:59 06:59 18:59 Intake Total 520 120 460 Output Total 500 Balance 20 120 460 Weight 85.1 kg Intake: IV 280 20 10 Invasive Line 2 30 20 10 Intake, IV Titration 100 50 Amount Sodium Chloride 0.9% 1, 100 000 ml @ 20 mls/hr IV . Q24H [facility] Rx#:[id number] ceFAZolin 2 gm In Sodium 50 Chloride 0.9% 50 ml @ 100 mls/hr IVPB Q6HR [facility] Rx# :[id number] Oral 240 400 Output: Urine 500 Other: Voiding Method Toilet Toilet Toilet # Voids 1 1 - Labs CBC & Chem 7: 10/08/20 08:03 10/10/20 06:24 Labs: Abnormal Lab Results - Last 24 Hours (Table) 10/09/20 10/09/20 10/09/20 Range/Units 07:02 16:32 20:03 BUN (7-17) mg/dL Creatinine (0.52-1.04) mg/dL POC Glucose (mg/dL) 147 H 283 H (75-99) mg/dL Hemoglobin A1c 6.5 H (4.0-6.0) % 10/10/20 10/10/20 Range/Units 06:13 06:24 BUN 35 H (7-17) mg/dL Creatinine 1.51 H (0.52-1.04) mg/dL POC Glucose (mg/dL) 111 H (75-99) mg/dL Hemoglobin A1c (4.0-6.0) % Microbiology - Last 24 Hours (Table) 10/07/20 06:00 Urine Culture - Final Urine,Voided Enterobacter aerogenes
[2020-10-10 11:49] VITALS: BP 117/63; PULSE 80; TEMP 98.6
[2020-10-10 11:53] LABS: Glucose,Whole Blood 127 mg/dL (75-99)
[2020-10-10] MEDS: ACETAMINOPHEN TAB 325 MG TAB PO PRN (14:38)
--- NOTE | 2020-10-10 15:07 | P.PN ---
Subjective Progress Note Date: 10/10/20 Patient was seen for a follow-up. Patient initially seen by Dr. Page on 10/08/2020. Please refer to her note for details. Patient at present denies headache. She states that for last 4-5 years she has been having headaches almost daily. She is now "used to it". Patient states that she is feeling better, as she has slept very well last night. Patient does not know any history of cerebral aneurysm. Patient states that a few years ago (which she believes was about 40-15 years ago, although was not sure of timeframe), she was sent to [facility] [place] by her primary physician Dr. Barone, for treatment of headaches where she underwent a lot of testing. Patient does not remember if she was ever told about having cerebral aneurysm. Patient states that after that hospital stay, her headaches went away. Patient denies any headache now. She denies any double vision. No numbness or tingling. Telemetry monitoring showing sinus rhythm with sinus bradycardia in 50s. Sometimes it is ventricular or atrial paced. Objective - Vital Signs Vital signs: Vital Signs Temp 98.6 F 10/10/20 11:48 Pulse 80 10/10/20 11:48 Resp 16 10/10/20 11:48 BP 117/63 10/10/20 11:48 Pulse Ox 96 10/10/20 11:48 Intake & Output 10/09/20 10/10/20 10/10/20 18:59 06:59 18:59 Intake Total 520 120 660 Output Total 500 Balance 20 120 660 Weight 85.1 kg Intake: IV 280 20 10 Invasive Line 2 30 20 10 Intake, IV Titration 100 50 Amount Sodium Chloride 0.9% 1, 100 000 ml @ 20 mls/hr IV . Q24H [facility] Rx#:[id number] ceFAZolin 2 gm In Sodium 50 Chloride 0.9% 50 ml @ 100 mls/hr IVPB Q6HR [facility] Rx# :[id number] Oral 240 600 Output: Urine 500 Other: Voiding Method Toilet Toilet Toilet # Voids 1 1 - Exam Patient is sitting in the recliner, in no distress. She is alert and awake. Her speech and language functions are normal. No aphasia or dysarthria. Detail cognitive function testing deferred. Her pupils are very small, about 2-3 mm, reactive. Extraocular muscles are intact. No nystagmus. Visual patton are full. Face is symmetric. Hearing is grossly intact. Palatal elevation is intact. Shoulder shrug normal. Tongue protrudes to the midline. Patient had undergone revision of the pacemaker wire, therefore the left arm is in a sling. Her strength of the right arm appears normal. Her right arm is tremulous. Gait deferred. - Labs CBC & Chem 7: 10/08/20 08:03 10/10/20 06:24 Labs: Abnormal Lab Results - Last 24 Hours (Table) 10/09/20 10/09/20 10/09/20 Range/Units 07:02 16:32 20:03 BUN (7-17) mg/dL Creatinine (0.52-1.04) mg/dL POC Glucose (mg/dL) 147 H 283 H (75-99) mg/dL Hemoglobin A1c 6.5 H (4.0-6.0) % 10/10/20 10/10/20 10/10/20 Range/Units 06:13 06:24 11:51 BUN 35 H (7-17) mg/dL Creatinine 1.51 H (0.52-1.04) mg/dL POC Glucose (mg/dL) 111 H 127 H (75-99) mg/dL Hemoglobin A1c (4.0-6.0) % Microbiology - Last 24 Hours (Table) 10/07/20 06:00 Urine Culture - Final Urine,Voided Enterobacter aerogenes Assessment and Plan Assessment: * 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 * Pacemaker, status post pacemaker lead revision. * Tremor right hand, unclear etiology. * Chronic cephalalgia, probably due to #1. Plan: * Patient is well aware of the diagnosis of cerebral aneurysm. CT head showed 6.5 mm basilar tip aneurysm. * CTA cannot be performed because of moderate renal insufficiency. * MRA cannot be performed because of pacemaker placement. * Suggest patient followed by neuro intervention as soon as possible. May follow up as an outpatient. * I spoke to neuro-intervention Dr. Dan today. He agreed patient needs to follow-up in his office. We will provide him with patient's name and telephone number, and his office will contact the patient. He probably will perform cerebral angiography directly for further evaluation/management of the aneurysm. * Discussed with primary team.
== END 2020-10-10 16:55 | disposition home or self-care (01) | DRG 260 ==
LOC: EC 12:44 → 6NMEDSUR 16:50 → 3SCARD 10-07 13:51 → OBSVTOIN 10-09 08:00
PROVIDERS: ADMIT Internal Medicine; ATTEND Internal Medicine
PROC: 02WA3MZ Revision of Cardiac Lead in Heart, Percutaneous Approach (ICD-10-PCS; principal; 2020-10-09 12:05)
DX: T82.120A Displacement of cardiac electrode, initial encounter (principal); I50.33 Acute on chronic diastolic (congestive) heart failure; I13.0 Hypertensive heart and chronic kidney disease with heart failure and stage 1 through stage 4 chronic kidney disease, or unspecified chronic kidney disease; I16.1 Hypertensive emergency; N39.0 Urinary tract infection, site not specified; R47.01 Aphasia; E87.2 Acidosis; I67.1 Cerebral aneurysm, nonruptured; Z20.822 Contact with and (suspected) exposure to COVID-19; D63.1 Anemia in chronic kidney disease; E11.22 Type 2 diabetes mellitus with diabetic chronic kidney disease; E78.5 Hyperlipidemia, unspecified; B96.89 Other specified bacterial agents as the cause of diseases classified elsewhere; F40.240 Claustrophobia; F41.1 Generalized anxiety disorder; J44.9 Chronic obstructive pulmonary disease, unspecified; N18.31 Chronic kidney disease, stage 3a; I16.0 Hypertensive urgency; R07.89 Other chest pain; R00.2 Palpitations; E11.42 Type 2 diabetes mellitus with diabetic polyneuropathy; R25.1 Tremor, unspecified; M19.90 Unspecified osteoarthritis, unspecified site; R01.1 Cardiac murmur, unspecified; R51.9 Headache, unspecified; G62.9 Polyneuropathy, unspecified; Y71.8 Miscellaneous cardiovascular devices associated with adverse incidents, not elsewhere classified; Z79.899 Other long term (current) drug therapy; Z87.19 Personal history of other diseases of the digestive system; Z90.710 Acquired absence of both cervix and uterus; Z86.718 Personal history of other venous thrombosis and embolism; Z95.828 Presence of other vascular implants and grafts; Z96.1 Presence of intraocular lens; Z96.652 Presence of left artificial knee joint; Z95.0 Presence of cardiac pacemaker; Z79.84 Long term (current) use of oral hypoglycemic drugs; Z86.79 Personal history of other diseases of the circulatory system; Z87.891 Personal history of nicotine dependence; Z98.42 Cataract extraction status, left eye; Z98.41 Cataract extraction status, right eye; Z86.010 Personal history of colon polyps; Z87.11 Personal history of peptic ulcer disease
CPT/HCPCS: 33215; 36415; 70450; 71045; 71046; 80048; 80053; 81001; 82550; 83036; 83735; 83880; 84439; 84443; 84481; 84484; 85025; 85610; 85730; 87077; 87086; 87186; 87635; 93005; 94760; 96374; 96375; 99285

== ENCOUNTER 2021-07-20 20:47 | Emergency (ER) | payer MEDICARE ==
[2021-07-20 20:53] VITALS: RESP 18
--- NOTE | 2021-07-20 22:30 | ED ---
Wound/Laceration HPI - General Chief Complaint: Wound/Laceration Stated Complaint: Fall Time Seen by Provider: 07/20/21 21:49 Source: EMS, RN notes reviewed, old records reviewed Mode of arrival: EMS Limitations: no limitations - History of Present Illness Initial Comments: This is an 85-year-old female to the ER for evaluation. Patient comes in with f all left knee laceration. Patient has significant laceration to left knee. No other injury is noted. Patient has some pain in the left knee but no other pain. Fall. Patient was trying to feed her cats. Mechanical in nature no dizziness lightheadedness or weakness. Patient states she has had some significant bleeding. -: hour(s) Extremity Location: Left: Knee Place: home Patient Tetanus UTD: Yes Context: accidental Associated Symptoms: none Treatments Prior to Arrival: bandage - Related Data Home Medications Medication Instructions Recorded Confirmed Atorvastatin [Lipitor] 20 mg PO DAILY 01/19/16 10/06/20 Sodium Bicarbonate Tab 650 mg PO DAILY 09/24/20 10/06/20 methocarbamoL [Robaxin] 500 mg PO TID PRN 09/24/20 10/06/20 Previous Rx's Medication Instructions Recorded hydrALAZINE HCL [Apresoline] 75 mg PO TID #270 tab 10/03/20 ALPRAZolam [Xanax] 0.25 mg PO TID PRN 3 Days #9 tab 10/10/20 Cefuroxime [Ceftin] 250 mg PO BID 4 Days #8 tab 10/10/20 Furosemide [Lasix] 40 mg PO DAILY #30 tab 10/10/20 amLODIPine [Norvasc] 5 mg PO BID #60 tab 10/10/20 Allergies Allergy/AdvReac Type Severity Reaction Status Date / Time No Known Allergies Allergy Verified 07/20/21 20:53 Review of Systems ROS Statement: Those systems with pertinent positive or pertinent negative responses have been documented in the HPI. ROS Other: All systems not noted in ROS Statement are negative. Past Medical History Past Medical History: Heart Failure, COPD, Diabetes Mellitus, Deep Vein Thrombosis (DVT), GERD/Reflux, GI Bleed, Hyperlipidemia, Hypertension, Osteoarthritis (OA), Renal Disease Additional Past Medical History / Comment(s): NIDDM type II-diet controlled, past neuropathy bilateral feet, decreased renal function, cardiac murmur, hypokalemia, L leg DVT, hemorrhoids, benign colon polyps, hemorrhoids, anemia, lower GI bleed, gastric ulcer. History of Any Multi-Drug Resistant Organisms: None Reported Past Surgical History: Adenoidectomy, Appendectomy, Cholecystectomy, Heart Catheterization, Hysterectomy, Joint Replacement, Pacemaker, Tonsillectomy Additional Past Surgical History / Comment(s): IVC filter, L leg skin tear with surgical repair, total hysterectomy, L knee arthroscopy, total L knee arthroplasty, R shoulder rotator cuff repair with pin, bilateral cataract removals/lens implants, bilateral blepharoplasties, EGD, colonoscopies/benign polypectomy. Past Anesthesia/Blood Transfusion Reactions: No Reported Reaction Additional Past Anesthesia/Blood Transfusion Reaction / Comment(s): CLAUSTROPHOBIA Type of Cardiac Device: Permanent Pacemaker Device Placement Date:: 10/02/20 Past Psychological History: Anxiety Smoking Status: Former smoker Past Alcohol Use History: None Reported Past Drug Use History: Marijuana - Past Family History Father Family Medical History: Cancer Additional Family Medical History / Comment(s): Father had prostate cancer with mets. He at the age of 74 yrs. Sister(s) Family Medical History: Cancer Mother Family Medical History: COPD Additional Family Medical History / Comment(s): Mother at the age of 86yrs. Brother(s) Family Medical History: Musculoskeletal Disorder, Neurologic Disorder Additional Family Medical History / Comment(s): Brother of parkinson's disease. General Exam Limitations: no limitations General appearance: alert, in no apparent distress Head exam: Present: atraumatic, normocephalic, normal inspection Eye exam: Present: normal appearance, PERRL, EOMI. Absent: scleral icterus, conjunctival injection, periorbital swelling ENT exam: Present: normal exam, mucous membranes moist Neck exam: Present: normal inspection. Absent: tenderness, meningismus, lymphadenopathy Respiratory exam: Present: normal lung sounds bilaterally. Absent: respiratory distress, wheezes, rales, rhonchi, stridor Cardiovascular Exam: Present: regular rate, normal rhythm, normal heart sounds. Absent: systolic murmur, diastolic murmur, rubs, gallop, clicks GI/Abdominal exam: Present: soft, normal bowel sounds. Absent: distended, tenderness, guarding, rebound, rigid Extremities exam: Present: normal inspection, full ROM, tenderness (20 cm laceration to anterior knee, significant bleeding), normal capillary refill. Absent: pedal edema, joint swelling, calf tenderness Back exam: Present: normal inspection Neurological exam: Present: alert, oriented X3, CN II-XII intact Psychiatric exam: Present: normal affect, normal mood Skin exam: Present: warm, dry, intact, normal color. Absent: rash Course Vital Signs 07/20/21 20:50 Temperature 99.2 F Pulse Rate 51 L Respiratory 18 Rate Blood Pressure 120/64 O2 Sat by Pulse 97 Oximetry - Reevaluation(s) Reevaluation #1: 07/21/21 00:16 Medical record is reviewed Reevaluation #2: 07/21/21 00:16 Patient symptoms are improved here in the ER Reevaluation #3: 07/21/21 00:16 Patient placed in knee immobilizer encouraged to use immobilizer during any activity Reevaluation #4: 07/21/21 00:16 Patient informed results and questions are answered Procedures - Laceration Laceration #1 Consent Obtained: verbal consent Indication: laceration Size (cm): 20 Description: linear, irregular Depth: simple, single layer Anesthetic Used: lidocaine 1% Anesthesia Technique: local infiltration Pre-repair: wound explored, irrigated extensively Type of Sutures: nylon Size of Sutures: 4-0 Technique: simple, interrupted Complications: bleeding Patient Tolerated Procedure: well Medical Decision Making - Medical Decision Making 85 female to the emergency department for evaluation left knee laceration which is repaired here in the ER. Immobilizer was placed and patient can be discharged home - Lab Data Result diagrams: 07/20/21 23:35 07/20/21 23:35 Lab Results 07/20/21 07/20/21 Range/Units 23:35 23:35 WBC 12.7 H (3.8-10.6) k/uL RBC 3.68 L (3.80-5.40) m/uL Hgb 11.7 (11.4-16.0) gm/dL Hct 34.7 (34.0-46.0) % MCV 94.5 (80.0-100.0) fL MCH 31.7 (25.0-35.0) pg MCHC 33.5 (31.0-37.0) g/dL RDW 15.0 (11.5-15.5) % Plt Count 248 (150-450) k/uL MPV 7.5 Neutrophils % 80 % Lymphocytes % 12 % Monocytes % 5 % Eosinophils % 1 % Basophils % 0 % Neutrophils # 10.2 H (1.3-7.7) k/uL Lymphocytes # 1.5 (1.0-4.8) k/uL Monocytes # 0.7 (0-1.0) k/uL Eosinophils # 0.2 (0-0.7) k/uL Basophils # 0.1 (0-0.2) k/uL Sodium 136 L (137-145) mmol/L Potassium 3.6 (3.5-5.1) mmol/L Chloride 99 (98-107) mmol/L Carbon Dioxide 25 (22-30) mmol/L Anion Gap 12 mmol/L BUN 48 H (7-17) mg/dL Creatinine 2.01 H (0.52-1.04) mg/dL Est GFR (CKD-EPI)AfAm 26 (>60 ml/min/1.73 sqM) Est GFR (CKD-EPI)NonAf 22 (>60 ml/min/1.73 sqM) Glucose 168 H (74-99) mg/dL Calcium 9.2 (8.4-10.2) mg/dL - Radiology Data Radiology results: report reviewed (X-ray left knee is negative for significant somatic injury), image reviewed Disposition Clinical Impression: Laceration, Laceration of left knee, Fall Disposition: HOME SELF-CARE Condition: Good Instructions (If sedation given, give patient instructions): Laceration (ED) Is patient prescribed a controlled substance at d/c from ED?: No Referrals: Aaron Story MD [Primary Care Provider] - 1-2 days
--- NOTE | 2021-07-20 22:36 | XR ---
EXAMINATION TYPE: XR knee limited LT DATE OF EXAM: 07/20/2021 COMPARISON: NONE HISTORY: Fall. Pain. TECHNIQUE: 2 views FINDINGS: There is left knee prosthesis. I see no fracture nor dislocation. There is soft tissue swel ling anterior to the knee. There are multiple densities project in the soft tissues anterior to the p roximal tibia. Foreign body is not excluded. There is soft tissue deformity consistent with laceratio n. IMPRESSION: No fracture seen. Soft tissue swelling. Possible soft tissue foreign bodies. Laceration d eformity. Calcific tendinitis also likely.
[2021-07-20 23:43] LABS: Basophils # (A) 0.1 k/uL (0-0.2); Basophils % (A) 0 %; Eosinophils # (A) 0.2 k/uL (0-0.7); Eosinophils % (A) 1 %; HCT 34.7 % (34.0-46.0); HGB 11.7 gm/dL (11.4-16.0); Lymphocytes # (A) 1.5 k/uL (1.0-4.8); Lymphocytes % (A) 12 %; MCH 31.7 pg (25.0-35.0); MCHC 33.5 g/dL (31.0-37.0); MCV 94.5 fL (80.0-100.0); Mean Platelet Volume 7.5; Monocytes # (A) 0.7 k/uL (0-1.0); Monocytes % (A) 5 %; Neutrophils # (A) 10.2 k/uL (1.3-7.7); Neutrophils % (A) 80 %; Platelet Count 248 k/uL (150-450); RBC 3.68 m/uL (3.80-5.40); WBC 12.7 k/uL (3.8-10.6)
[2021-07-21 00:07] LABS: Calcium 9.2 mg/dL (8.4-10.2); Potassium 3.6 mmol/L (3.5-5.1)
[2021-07-21] MEDS ORDERED: CEPHALEXIN 500MG STARTER PACK 4 CAP BTL PO STA (00:18)
[2021-07-21 00:57] VITALS: BP 152/75; PULSE 53; TEMP 98
== END 2021-07-21 00:57 | disposition home or self-care (01) ==
LOC: EC 20:47
DX: S81.012A Laceration without foreign body, left knee, initial encounter (principal); I11.0 Hypertensive heart disease with heart failure; I50.9 Heart failure, unspecified; E11.9 Type 2 diabetes mellitus without complications; J44.9 Chronic obstructive pulmonary disease, unspecified; K21.9 Gastro-esophageal reflux disease without esophagitis; E78.5 Hyperlipidemia, unspecified; M19.90 Unspecified osteoarthritis, unspecified site; F41.9 Anxiety disorder, unspecified; F12.90 Cannabis use, unspecified, uncomplicated; Z86.718 Personal history of other venous thrombosis and embolism; Z86.010 Personal history of colon polyps; Z90.49 Acquired absence of other specified parts of digestive tract; Z90.710 Acquired absence of both cervix and uterus; Z95.0 Presence of cardiac pacemaker; Z96.652 Presence of left artificial knee joint; Z87.891 Personal history of nicotine dependence; W18.30XA Fall on same level, unspecified, initial encounter
CPT/HCPCS: 99284; 12005; 36415; 80048; 85025; 73560; L1830

== ENCOUNTER 2022-12-28 02:34 | Emergency (ER) | payer MEDICARE ==
[2022-12-28 02:57] VITALS: RESP 18; TEMP 98.2
--- NOTE | 2022-12-28 04:04 | ED ---
Fall HPI - General Chief Complaint: Fall Stated Complaint: fall Time Seen by Provider: 12/28/22 02:40 Source: EMS, RN notes reviewed, old records reviewed Mode of arrival: EMS Limitations: no limitations - History of Present Illness Initial Comments: This is a 87-year-old female after fall patient had a fall on the bathroom this morning lacerating her left knee significantly. Significant amount of bleeding and left knee. No other injuries noted no headache neck pain bilateral wrist pain and ankle pain. Just left knee pain with significant laceration left knee and skin tear. No blood thinners MD Complaint: fall -: hour(s) Fall From: standing When Fall Occurred: 1 hour [employer] RESE[employer] ENG[employer] Fall Witnessed: yes, by family Place Fall Occurred: home Loss of Consciousness: none Prolonged Down Time?: no Symptoms Prior to Fall: none Location - Extremities: Left: Knee Severity: severe Context: tripped/slipped Associated Symptoms: denies - Related Data Home Medications Medication Instructions Recorded Confirmed Atorvastatin [Lipitor] 20 mg PO DAILY 01/19/16 10/06/20 Sodium Bicarbonate Tab 650 mg PO DAILY 09/24/20 10/06/20 methocarbamoL [Robaxin] 500 mg PO TID PRN 09/24/20 10/06/20 Previous Rx's Medication Instructions Recorded hydrALAZINE HCL [Apresoline] 75 mg PO TID #270 tab 10/03/20 ALPRAZolam [Xanax] 0.25 mg PO TID PRN 3 Days #9 tab 10/10/20 Cefuroxime [Ceftin] 250 mg PO BID 4 Days #8 tab 10/10/20 Furosemide [Lasix] 40 mg PO DAILY #30 tab 10/10/20 amLODIPine [Norvasc] 5 mg PO BID #60 tab 10/10/20 Cephalexin [Keflex] 500 mg PO Q6HR #40 cap 12/28/22 Allergies Allergy/AdvReac Type Severity Reaction Status Date / Time No Known Allergies Allergy Verified 07/20/21 20:53 Review of Systems ROS Statement: Those systems with pertinent positive or pertinent negative responses have been documented in the HPI. ROS Other: All systems not noted in ROS Statement are negative. Past Medical History Past Medical History: Heart Failure, COPD, Diabetes Mellitus, Deep Vein Thrombosis (DVT), GERD/Reflux, GI Bleed, Hyperlipidemia, Hypertension, Osteoarthritis (OA), Renal Disease Additional Past Medical History / Comment(s): NIDDM type II-diet controlled, past neuropathy bilateral feet, decreased renal function, cardiac murmur, hypokalemia, L leg DVT, hemorrhoids, benign colon polyps, hemorrhoids, anemia, lower GI bleed, gastric ulcer. History of Any Multi-Drug Resistant Organisms: None Reported Past Surgical History: Adenoidectomy, Appendectomy, Cholecystectomy, Heart Catheterization, Hysterectomy, Joint Replacement, Pacemaker, Tonsillectomy Additional Past Surgical History / Comment(s): IVC filter, L leg skin tear with surgical repair, total hysterectomy, L knee arthroscopy, total L knee arth roplasty, R shoulder rotator cuff repair with pin, bilateral cataract removals/lens implants, bilateral blepharoplasties, EGD, colonoscopies/benign polypectomy. Past Anesthesia/Blood Transfusion Reactions: No Reported Reaction Additional Past Anesthesia/Blood Transfusion Reaction / Comment(s): CLAUSTROPHOBIA Type of Cardiac Device: Permanent Pacemaker Device Placement Date:: 10/02/20 Past Psychological History: Anxiety Smoking Status: Former smoker Past Alcohol Use History: None Reported Past Drug Use History: Marijuana - Past Family History Father Family Medical History: Cancer Additional Family Medical History / Comment(s): Father had prostate cancer with mets. He at the age of 74 yrs. Sister(s) Family Medical History: Cancer Mother Family Medical History: COPD Additional Family Medical History / Comment(s): Mother at the age of 86yrs. Brother(s) Family Medical History: Musculoskeletal Disorder, Neurologic Disorder Additional Family Medical History / Comment(s): Brother of parkinson's disease. General Exam Limitations: no limitations General appearance: alert, in no apparent distress Head exam: Present: atraumatic, normocephalic, normal inspection Eye exam: Present: normal appearance, PERRL, EOMI. Absent: scleral icterus, conjunctival injection, periorbital swelling ENT exam: Present: normal exam, mucous membranes moist Neck exam: Present: normal inspection. Absent: tenderness, meningismus, lymphadenopathy Respiratory exam: Present: normal lung sounds bilaterally. Absent: respiratory distress, wheezes, rales, rhonchi, stridor Cardiovascular Exam: Present: regular rate, normal rhythm, normal heart sounds. Absent: systolic murmur, diastolic murmur, rubs, gallop, clicks GI/Abdominal exam: Present: soft, normal bowel sounds. Absent: distended, tenderness, guarding, rebound, rigid Extremities exam: Present: normal inspection, full ROM, tenderness, normal capillary refill, other (Laceration to left lower extremity 20 cm with stellate and flaps). Absent: pedal edema, joint swelling, calf tenderness Back exam: Present: normal inspection Neurological exam: Present: alert, oriented X3, CN II-XII intact Psychiatric exam: Present: normal affect, normal mood Skin exam: Present: warm, dry, intact, normal color. Absent: rash Course Vital Signs 12/28/22 12/28/22 02:49 05:28 Temperature 98.2 F Pulse Rate 52 L 50 L Respiratory 18 18 Rate Blood Pressure 160/66 159/74 O2 Sat by Pulse 99 97 Oximetry - Reevaluation(s) Reevaluation #1: 12/28/22 06:28 Medical record is reviewed Reevaluation #2: 12/28/22 06:28 Patient laceration is repaired without significant bleeding Reevaluation #3: 12/28/22 06:28 Patient informed of results questions answered Reevaluation #4: 12/28/22 06:28 Was pt. sent in by a medical professional or institution (, PA, [employer] S[employer]W, urgent care, hospital, or long term...) When possible be specific @ -no Did you speak to anyone other than the patient for history (EMS, parent, family, police, friend...)? What history was obtained from this source @ -no Did you review nursing and triage notes (agree or disagree)? Why? @ -agree Are old charts reviewed (outside hosp., previous admission, EMS record, old EKG, old radiological studies, urgent care reports/EKG's, long term records)? Report findings @ -yes Differential Diagnosis (chest pain, altered mental status, abdominal pain women, abdominal pain men, vaginal bleeding, weakness, fever, dyspnea, syncope, headache, dizziness, GI bleed, back pain, seizure, CVA, palpatations, mental health, musculoskeletal)? @ -prior EKG interpreted by me (3pts min.). @ -no X-rays interpreted by me (1pt min.). @ -no CT interpreted by me (1pt min.). @ -no U/S interpreted by me (1pt. min.). @ -no What testing was considered but not performed or refused? (CT, X-rays, U/S, labs)? Why? @ -none What meds were considered but not given or refused? Why? @ -none Did you discuss the management of the patient with other professionals (professionals i.e. , PA, [employer] S[employer], lab, RT, psych nurse, social media marketing analyst, electrical electronics technician, teacher, disability insurance hearing officer, home health care case manager)? Give summary @ -no Was smoking cessation discussed for >3mins.? @ -no Was critical care preformed (if so, how long)? @ -no Were there social determinants of health that impacted care today? How? (Homelessness, low income, unemployed, alcoholism, drug addiction, transportation, low edu. Level, literacy, decrease access to med. care, longterm, rehab)? @ -none Was there de-escalation of care discussed even if they declined (Discuss DNR or withdrawal of care, Hospice)? DNR status @ -no What co-morbidities impacted this encounter? (DM, HTN, Smoking, COPD, CAD, Cancer, CVA, ARF, Chemo, Hep., AIDS, mental health diagnosis, sleep apnea, morbid obesity)? @ -none Was patient admitted / discharged? Hospital course, mention meds given and route, prescriptions, significant lab abnormalities, going to OR and other pertinent info. @ - 87 female to the emergency department today with significant left knee laceration wash cleaned and repaired here in the emergency department. Patient's wounds and bandage and patient can be discharged home Discharge Undiagnosed new problem with uncertain prognosis? @ -no Drug Therapy requiring intensive monitoring for toxicity (Heparin, Nitro, Insulin, Cardizem)? @ -no Were any procedures done? @ -Laceration repair Diagnosis/symptom? @ -Fall with significant left lower extremity laceration Acute, or Chronic, or Acute on Chronic? @ -Acute Uncomplicated (without systemic symptoms) or Complicated (systemic symptoms)? @ -Complicated Side effects of treatment? @ -no Exacerbation, Progression, or Severe Exacerbation? @ -exacerbation Poses a threat to life or bodily function? How? (Chest pain, [place], [place], pneumonia, PE, COPD, DKA, ARF, appy, cholecystitis, CVA, Diverticulitis, Homicidal, Suicidal, threat to staff... and all critical care pts) @ -no Procedures - Laceration Laceration #1 Consent Obtained: verbal consent Indication: laceration Site: lower extremity Size (cm): 20 Description: stellate, flap, avulsion, irregular Depth: simple, single layer Anesthetic Used: lidocaine 1%, with epi Anesthesia Technique: local infiltration Pre-repair: wound explored, irrigated extensively, deep structures intact Type of Sutures: nylon Size of Sutures: 4-0 Technique: simple, interrupted Patient Tolerated Procedure: well Medical Decision Making - Medical Decision Making 87 female to the emergency department today with significant left knee laceration wash cleaned and repaired here in the emergency department. Patient's wounds and bandage and patient can be discharged home Disposition Clinical Impression: Fall, Laceration of left knee Disposition: HOME SELF-CARE Condition: Good Instructions (If sedation given, give patient instructions): Care For Your Stitches (ED), Laceration (ED), Fall Prevention for Older Adults (ED) Prescriptions: Cephalexin [Keflex] 500 mg PO Q6HR #40 cap Is patient prescribed a controlled substance at d/c from ED?: No Referrals: Aaron Story MD [Primary Care Provider] - 1-2 days Time of Disposition: 04:30
[2022-12-28] MEDS ORDERED: CEPHALEXIN 500MG STARTER PACK 4 CAP BTL PO STA (04:36)
[2022-12-28 05:30] VITALS: BP 159/74; PULSE 50
== END 2022-12-28 05:29 | disposition home or self-care (01) ==
LOC: EC 02:34
DX: S81.012A Laceration without foreign body, left knee, initial encounter (principal); E11.36 Type 2 diabetes mellitus with diabetic cataract; E78.5 Hyperlipidemia, unspecified; I11.0 Hypertensive heart disease with heart failure; I50.9 Heart failure, unspecified; J44.9 Chronic obstructive pulmonary disease, unspecified; M19.90 Unspecified osteoarthritis, unspecified site; F41.9 Anxiety disorder, unspecified; Z87.891 Personal history of nicotine dependence; F12.90 Cannabis use, unspecified, uncomplicated; W18.11XA Fall from or off toilet without subsequent striking against object, initial encounter
CPT/HCPCS: 12005; 99283